=== PATIENT | female | born 1940 | race Caucasian/White ===

== ENCOUNTER 2019-06-08 16:11 | Inpatient (IN) ==
[2019-06-08] MEDS ORDERED: ONDANSETRON INJ 2 MG/ML 2 ML VIAL IV STA (16:25)
[2019-06-08] MEDS ORDERED: SODIUM CHLORIDE 0.9% 1000ML 1,000 ML IV ONE ×2 (16:25→17:45)
[2019-06-08] MEDS ORDERED: FAMOTIDINE 20MG/5ML IV PUSH IV STA (16:25)
[2019-06-08 16:45] LABS: Basophils # (auto) 0.02 K/uL (0-0.2); Basophils % (auto) 0.3 %; Eosinophils # (auto) 0.01 K/uL (0-0.5); Eosinophils % (auto) 0.1 %; Hematocrit (blood only) 47.7 % (37-47); Hemoglobin 17.4 g/dL (12.0-16.0); Immature Granulocytes # (auto) 0.02 K/uL (0.00-0.02); Immature Granulocytes % (auto) 0.3 %; Lymphocytes # (auto) 1.01 K/uL (1.2-3.4); Lymphocytes % (auto) 14.1 %; Mean Corpuscular Hgb Conc 36.5 g/dL (32-36); Mean Corpuscular Volume 88.5 fL (80-100); Mean Platelet Volume 10.6 fL (7.4-10.4); Monocytes % (auto) 2.8 %; Neutrophils # (auto) 5.89 K/uL (1.4-6.5); Neutrophils % (auto) 82.4 %; Platelet Count 216 K/uL (130-400); RDW Coefficient of Variation 13.5 % (11.5-14.5); RDW Standard Deviation 43.6 fL (36.4-46.3); Red Blood Count 5.39 M/uL (4.2-5.4); White Blood Count 7.15 K/uL (4.8-10.8)
[2019-06-08 17:07] LABS: Alanine Aminotransferase 10 U/L (12-78); Albumin Level 4.2 gm/dl (3.4-5.0); Aspartate Aminotransferase 17 U/L (15-37); BUN Creatinine Ratio 16.4 (10-20); Blood Urea Nitrogen 15 mg/dl (7-18); Calcium 9.7 mg/dl (8.5-10.1); Carbon Dioxide 24 mmol/L (21-32); Chloride 107 mmol/L (98-107); Creatinine Clr Calc Pharmacy 50.4 ml/min; Est GFR (African American) 70.4; Est GFR (Non-African American) 60.8; Glucose 147 mg/dl (70-99); Magnesium 1.7 mg/dl (1.8-2.4); Potassium 3.4 mmol/L (3.5-5.1); Sodium 142 mmol/L (136-145)
[2019-06-08 17:18] LABS: Albumin Globulin Ratio 1.3 (0.9-2); Alkaline Phosphatase 142 U/L (45-117); Bilirubin,Total 0.9 mg/dl (0.2-1); Globulin 3.2 gm/dl (2.5-4.0); Total Protein 7.4 gm/dl (6.4-8.2); Troponin I < 0.015 ng/ml (0-0.045)
[2019-06-08] MEDS ORDERED: MAGNESIUM SULFATE / D5W 1 GM/100 ML BAG IV ONE (17:45)
[2019-06-08] MEDS ORDERED: DiphenhydrAMINE HCL 50 MG/ML VIAL IV STA (17:49)
[2019-06-08] MEDS ORDERED: METOCLOPRAMIDE HCL INJ 5 MG/ML 2 ML VIAL IV ONE (17:49)
--- NOTE | 2019-06-08 18:11 | XRay Report ---
XR abdomen 2V w PA chest CLINICAL HISTORY: epigastric pain, n/v COMPARISON STUDY: CT scan dated 05/31/2019 FINDINGS: Direct chest reveals no free intraperitoneal air. There is no focal pulmonary consolidation . Erect and supine views the abdomen reveal no abnormally dilated loops of large or small bowel. Ther e are no calcifications suspicious for renal calculi. There are postsurgical changes present within t he lumbar spine. There is a stable area of sclerosis involving the lateral margin of the left iliac c rest. IMPRESSION: No evidence of bowel obstruction. No evidence of free air. Electronically signed by: Diego Nobles M.D. 06/08/2019 6:09 PM
[2019-06-08] MEDS ORDERED: ACETAMINOPHEN 1,000 MG/100 ML VIAL IV STA (18:47)
--- NOTE | 2019-06-08 20:26 | History & Physical Report ---
Date of Service June 08, 2019 Assessment & Plan (1) Nausea & vomiting: (2) Abdominal pain: (3) Dehydration: Patient with history of GERD presented with complaint of intermittent nausea/vomiting, epigastric aching/"lump sensation" for the past 3 weeks. Today with numerous episodes of vomiting reported. Denies fever, chills, hematemesis, melena, urinary symptoms History ER visit [address] abdomen and pelvis with no acute abdominal findings Today in ER patient afebrile, P: 90, RR: 18, BP 164/115 Down to 169/94, 98% on room air. No leukocytosis, H/H: 17/47, K: 3.4, magnesium: 1.7, glucose: 147, POC lactate: 2.45, total bili: 0.9, AST: 17, ALT: 10, alk phos: 142, normal li pase, negative troponin CXR/abdominal x-ray: No bowel obstruction, or free air DDX: Gastritis, H. pylori, GERD, gastroenteritis -In ER given 2 L NSS, Zofran, Reglan, Benadryl, Pepcid -Continue PPI p.o. twice daily -Antiemetic as needed -H. pylori stool study however may be inaccurate secondary to PPI use -Hold aspirin and monitor -Clear liquids for now -GI consult -Monitor CBC, CMP (4) Hypokalemia: K: 3.4 Probable secondary to vomiting -Replace and monitor (5) Hypomagnesemia: Magnesium: 1.7 -In ER given 1 g magnesium IV -Monitor magnesium level (6) HTN (hypertension): Not on home medicines BP elevated in ER at 164/115, 169/94 May be secondary to vomiting -Monitor BP -May need to add BP medicine (7) Diabetes mellitus, type II: Diet controlled. A1c: 6.4 on 04/26/2019 Random glucose: 147 (8) Parkinson disease: -Continue carbidopa-levodopa (9) Anxiety and depression: -Continue duloxetine, continue alprazolam. (10) Dyslipidemia: -Hold statin at this time secondary to GI upset DVT Prophylaxis -Heparin SQ PT/OT Eval Case management consult for assistance with discharge planning DNR/DNI as per discussion with pt Follows with Dr Mendez for routine care Pt was seen and care coordinated with Dr Hi. See addendum History of Present Illness Chief Complaint: N/V Primary Care Provider: Ori Mendez MD Pt is 79 y/o F with PMH HTN, dyslipidemia, GERD, depression, anxiety, tremor, Parkinson's, DM II, chronic back pain presented to ER with complaint of nausea and vomiting. Patient reports intermittent nausea and vomiting for the past 3 weeks. She reports symptoms seem to occur when she is up moving around. Describes nausea followed by "lump sensation" to epigastric region. Patient describes the lump sensation as an ache and reports no other abdominal pain. Patient reports will have vomiting sometimes several times a day. Reports numerous episodes of vomiting today. Reports symptoms are improved with lying supine. States he has been eating soup and sherbet. Patient is unsure if food aggravates symptoms. Patient reports increased belching. patient reports chronic constipation, last BM 2-3 days ago. Denies any difficulty swallowing or painful swallowing. Denies food bolus sensation. Patient reports chronic intermittent heartburn with lying down at bedtime and reports takes Tums a cou ple times a week for this. Patient was seen by PCP office on 05/20/2019 for nausea and vomiting. Had a negative urine culture at that point time. Patient is on omeprazole 20 mg twice daily. Patient seen in ER 05/31/2019 for similar symptoms and CT abdomen pelvis at that time was without acute intra-abdominal pathology, noted Punctate right nephrolithiasis vs renovascular calcification, no hydroneph rosis and no diverticulitis. She was given IVF and discharged home on Zofran. Patient reports took Zofran but continues to have symptoms. She denies caffeine intake. Patient reports takes Aleve 2 to 3 pills per dose every couple of days for chronic back and neck pain. Patient is on baby aspirin. Patient reports is more forgetful and often has hard time with her medications. She reports she is supposed to be getting pill packs to help her with her meds. Reports recently got life alert however she sometimes forgets to wear. Reports was having frequent falls however now has rolling walker reports no falls for the past 3 weeks. Denies history EGD in past. Denies fever/chills, diaphoresis, hematemesis, melena, hematochezia, dysuria, urinary frequency, urinary retention or hesitancy, hematuria, SCRUGGS, dizziness, syncope, vision changes, neck pain, CP, SOB, orthopnea, palpitations, cough, sore throat, choking, otalgia, rhinorrhea, paresthesias, weakness, extremity weakness, extremity edema, rashes. Denies recent travel, recent antibiotic use, ill contacts. Patient reports moves home alone. Allergies Allergy/AdvReac Type Severity Reaction Status Date / Time codeine Allergy Severe SEVERE Verified 06/08/19 16:43 HEADACHE, NAUSEA & VOMITING morphine Allergy Severe SEVERE Verified 06/08/19 16:43 HEADACHE, NAUSEA, & VOMITING pentazocine [From [facility]] Allergy Severe DECREASED Verified 06/08/19 16:43 MOTOR SKILL, SOB. Home Medications Home Medications Medication Instructions Recorded Confirmed Type alprazolam 0.25 mg PO TID PRN 10/14/18 06/08/19 History aspirin [Aspir-81] 81 mg PO DAILY 10/14/18 06/08/19 History duloxetine 60 mg PO DAILY 10/14/18 06/08/19 History omeprazole 20 mg PO BID 10/14/18 06/08/19 History bupropion HCl 150 mg PO BID 05/31/19 06/08/19 History carbidopa-levodopa 1 tab PO TID 05/31/19 06/08/19 History primidone 50 mg PO BID 05/31/19 06/08/19 History atorvastatin 20 mg PO DAILY 06/08/19 06/08/19 History Past Med/Surg History Medical History Anxiety and depression (Chronic) HTN (hypertension) (Chronic) Diabetes mellitus, type II (Chronic) Dyslipidemia (Chronic) Parkinson disease (Chronic) Tremor (Chronic) Gastroesophageal reflux disease (Chronic) Chronic back pain Surgical History History of cervical spinal surgery (Chronic) History of lumbosacral spine surgery (Chronic) History of tubal ligation (Chronic) History of back surgery Family History Other Hypertension Stroke Thyroid disorder Social History Preferred Language: Qatari Communication Ability: Effective Automotive Consultant Required: No Beliefs That Will Affect Care: None Current Living Situation: Alone Other Information That Helps Us Care for You: No Feels Safe at Home: Yes Safety Concerns: Feels Safe At This Time Smoking Status: Never smoker Do You Dip or Chew Tobacco: No ; Second Hand Exposure: No ; Hx Alcohol Use: Yes Alcohol type: hard liquor Hx Substance Use: No Review of Systems Review of Systems: All systems reviewed & are unremarkable except as noted in HPI & below Physical Exam Physical Exam: General: no acute distress, obese Head: normocephalic, atraumatic Eyes: PERRL, EOM's intact, conjunctiva non-injected, anicteric ENT: normal inspection external ears, nose, mucous membranes dry Neck: supple, trachea midline Lungs: clear, no respiratory distress, no wheezing/rhonchi/rales CV: RRR, no murmur, no pretibial edema Abd: normal BS, soft, protuberant, mild tenderness to palpation epigastric region without rebound or guarding Ext: no cyanosis, no calf tenderness Neuro: Alert, oriented to person, place, month, year, no focal deficits noted, normal affect Skin: warm, dry Results & Data Vital Signs (Past 12 Hours) Vital Signs Temp Pulse Pulse Resp BP BP Pulse Ox 06/08/19 19:38 85 22 176/98 H 96 06/08/19 18:32 90 25 H 169/94 H 99 06/08/19 17:42 87 24 168/99 H 97 06/08/19 16:11 36.8 C 95 H 18 164/115 H 98 Laboratory Results Short CBC 06/08/19 Range/Units 16:31 WBC 7.15 (4.8-10.8) K/uL Hgb 17.4 H (12.0-16.0) g/dL Hct 47.7 H (37-47) % Plt Count 216 (130-400) K/uL BMP 06/08/19 16:31 Sodium 142 Potassium 3.4 L Chloride 107 Carbon Dioxide 24 BUN 15 Creatinine 0.89 Glucose 147 H Calcium 9.7 Cardiac Enzymes 06/08/19 Range/Units 16:31 Troponin I < 0.015 (0-0.045) ng/ml Liver Function 06/08/19 Range/Units 16:31 Total Bilirubin 0.9 (0.2-1) mg/dl AST 17 (15-37) U/L ALT 10 L (12-78) U/L Alkaline Phosphatase 142 H (45-117) U/L Albumin 4.2 (3.4-5.0) gm/dl Diagnostic Findings CXR/ABD XRAY: IMPRESSION: No evidence of bowel obstruction. No evidence of free air. ECG Rate (beats per minute): 82 Rhythm: sinus rhythm Findings: + Q waves (Inferior) Change: no significant change Code Status & VTE Plan VTE Prophylaxis Plan VTE Prophylaxis will be ordered: Yes Supervising Physician Co-Signing Physician Notes Care coordinated with Alicia Lopez PA-C. Agree with above note. Patient seen and examined. Please refer to her notes for full details. Vital signs reviewed. Physical exam: General exam: Alert and oriented. Not in acute distress. CVS: S1 and S2 heard, regular rate and rhythm, no murmurs. RS: Clear to auscultation, no wheezing or crackles. ABD: Soft, bowel sounds present, mild epigastric tenderness present , no distention. CLOSET ORGANIZER: Nonfocal. EXT: No edema, no erythema. Labs: Reviewed. Assessment and plan: Nausea/Vomiting epigastric discomfort going on for 3 weeks imaging studies unremarkable ppi npo, fluids gi consult Parkinsons home meds pt/ot Other diagnosis and plan of care as per Alicia Sears PA-C. Mario meade MD. (1) Nausea & vomiting Vomiting Intractability: non-intractable Vomiting type: unspecified Qualified Code(s): R11.2 - Nausea with vomiting, unspecified (2) Abdominal pain Abdominal location: unspecified location Qualified Code(s): R10.9 - Unspecified abdominal pain
[2019-06-08] MEDS ORDERED: ACETAMINOPHEN 325 MG TAB PO PRN (21:27)
[2019-06-08] MEDS ORDERED: POTASSIUM CHLORIDE 40 MEQ in SODIUM CHLORIDE 0.9% 1000ML 1,000 ML IV SCH (21:27)
[2019-06-08] MEDS ORDERED: ONDANSETRON INJ 2 MG/ML 2 ML VIAL IV PRN (21:27)
[2019-06-08] MEDS: PANTOprazole 40 MG TAB PO SCH (23:04)
[2019-06-08] MEDS: PRIMIDONE 50 MG TAB PO SCH (23:04)
[2019-06-08] MEDS: CARBIDOPA/LEVODOPA 25/100MG TAB PO SCH (23:05)
[2019-06-08] MEDS: BuPROPion SR 150 MG TABCR PO SCH (23:05)
[2019-06-08] MEDS: ALPRAZolam 0.25 MG TABLET PO PRN (23:07)
--- NOTE | 2019-06-08 23:55 | Emergency Department Note ---
Entered by Kadi Crawford acting as a scribe for Mary Mejia DO History of Present Illness General Chief complaint: Vomiting Time Seen by Provider: 06/08/19 16:12 Source: patient Mode of arrival: EMS History of Present Illness Provider complaint: vomiting Onset (ago): hour(s) 8 Location: abdomen Pain Consistency: + other (episode) Associated symptoms: + denies other symptoms (abnormal bowel movements), + nausea/vomiting and + other (abdominal pain, light-headed); no fever/chills and no syncope The patient is an 79 year old female with a PMHX of a PE, Parkinson's disease, and stomach ulcer, who presents to the ED via EMS with complaints of an episode vomiting that began about 8 hours ago. The patient states that she has been nausea and vomiting. She states that she has pain in the center of her abdomen that feels like indigestion. The patient states that she has been light-headed with the vomiting but has not lost consciousness. The patient states that she had an episode similar to this 1 week ago and was seen in the ED. The patient states that she was discharged home because her test results came back normal. She states that she followed up with her PCP who referred her back to the ED today because of more vomiting. She believes she vomited approximately 20 times last night into today. She states that she has been experiencing intermittent abdominal pain and nausea every day for 8 months now. The patient states that only recently she has been vomiting when she becomes nauseous. The patient states that she was supposed to see her family doctor in 3 weeks. The patient states that she had a PE 20 years ago and does not take blood thinners today. The patient denies fevers and chills. The patient states that she takes stool softeners to move her bowels. The patient states that she has not had a bowel movement in a few days, but that is normal. The patient states that her bowel movements are not discolored. The patient states that she was told she had a stomach ulcer years ago. The patient states that she lives alone. The patient states that she has no family she can call to inform that she is in the ED. The patient states that she has not spoken to them in almost 20 years. Home Medications Home Medications Medication Instructions Recorded Confirmed Type alprazolam 0.25 mg PO TID PRN 10/14/18 06/08/19 History aspirin [Aspir-81] 81 mg PO DAILY 10/14/18 06/08/19 History duloxetine 60 mg PO DAILY 10/14/18 06/08/19 History omeprazole 20 mg PO BID 10/14/18 06/08/19 History bupropion HCl 150 mg PO BID 05/31/19 06/08/19 History carbidopa-levodopa 1 tab PO TID 05/31/19 06/08/19 History primidone 50 mg PO BID 05/31/19 06/08/19 History atorvastatin 20 mg PO DAILY 06/08/19 06/08/19 History Allergies Allergy/AdvReac Type Severity Reaction Status Date / Time codeine Allergy Severe SEVERE Verified 06/08/19 16:43 HEADACHE, NAUSEA & VOMITING morphine Allergy Severe SEVERE Verified 06/08/19 16:43 HEADACHE, NAUSEA, & VOMITING pentazocine [From Rajani] Allergy Severe DECREASED Verified 06/08/19 16:43 MOTOR SKILL, SOB. Past Med/Surg History Medical History Anxiety and depression (Chronic) HTN (hypertension) (Chronic) Diabetes mellitus, type II (Chronic) Dyslipidemia (Chronic) Parkinson disease (Chronic) Tremor (Chronic) Gastroesophageal reflux disease (Chronic) Chronic back pain Surgical History History of cervical spinal surgery (Chronic) History of lumbosacral spine surgery (Chronic) History of tubal ligation (Chronic) History of back surgery Family History Other Hypertension Stroke Thyroid disorder Social History Preferred Language: Macedonian Communication Ability: Effective Imagery Intelligence Required: No Beliefs That Will Affect Care: None Current Living Situation: Alone Other Information That Helps Us Care for You: No Feels Safe at Home: Yes Safety Concerns: Feels Safe At This Time Smoking Status: Never smoker Do You Dip or Chew Tobacco: No ; Second Hand Exposure: No ; Hx Alcohol Use: Yes Alcohol type: hard liquor Hx Substance Use: No Review of Systems See HPI for pertinent positives & negatives. and A total of 10 systems reviewed and were otherwise negative Physical Exam Vital Signs Vital Signs - 24 hr 06/08/19 16:11 06/08/19 17:42 06/08/19 18:32 Temperature 36.8 C Temperature Source Oral Sepsis Recent Fever Within 48 Hours No Sepsis New/Unexplained Change in Mental Status No Sepsis Action Taken by Nursing No Action Required Pulse Rate 95 H Pulse Rate [Left Finger] 87 90 Respiratory Rate 18 24 25 H Respiratory Effort / Characteristics Non-Labored Non-Labored Respiratory Depth Normal Normal Respiratory Pattern Regular Regular Blood Pressure 164/115 H Blood Pressure [Left Arm] 168/99 H 169/94 H Blood Pressure Mean 131 Blood Pressure Mean [Left Arm] 122 119 Pulse Oximetry 98 97 99 Oxygen Delivery Method Room Air Room Air Room Air 06/08/19 19:38 Temperature Temperature Source Sepsis Recent Fever Within 48 Hours Sepsis New/Unexplained Change in Mental Status Sepsis Action Taken by Nursing Pulse Rate Pulse Rate [Left Finger] 85 Respiratory Rate 22 Respiratory Effort / Characteristics Respiratory Depth Respiratory Pattern Blood Pressure Blood Pressure [Left Arm] 176/98 H Blood Pressure Mean Blood Pressure Mean [Left Arm] 124 Pulse Oximetry 96 Oxygen Delivery Method Room Air GENERAL: alert, ill appearing, well nourished, no distress, non-toxic EYE EXAM: normal conjunctiva, PERRL and EOM's grossly intact OROPHARYNX: no exudate, no erythema, lips, buccal mucosa, and tongue normal and mucous membranes are dry NECK: supple, no nuchal rigidity, no adenopathy, non-tender LUNGS: Clear to auscultation. Normal chest wall mechanics, no w/r/r HEART: no murmurs, S1 normal and S2 normal ABDOMEN: abdomen soft, mild epigastric tenderness to palpation, normo-active bow el sounds, no masses, no rebound or guarding. BACK: Back is symmetrical on inspection and there is no deformity, no midline tenderness, no CVA tenderness. SKIN: no rashes and no bruising UPPER EXTREMITIES: upper extremities are grossly normal. LOWER EXTREMITIES: No pitting edema. FROM, nml pulses b/l. NEURO EXAM: Normal sensorium, cranial nerves II-XII grossly intact, normal speech, no gross weakness of arms, no gross weakness of legs. Tremulous, however tremor is consistent with no Parkinson's. Course 161: Past medical records reviewed. The patient was evaluated in room B11B. A complete history and physical exam was performed. 1826: I reevaluated the patient at this time and she stated that she is still nauseated but no longer has abdominal pain. I discussed the test results and treatment plan with the patient. She verbally agreed and understood. 1846: I discussed the patients case with Alicia Lopez PA-C. She i nformed me that Dr. Hi will evaluate the patient for further management. Consultations Consultation #1: I discussed the patients case with Alicia Lopez PA-C. She informed me that Dr. Hi will evaluate the patient for further management. Time: 18:47 Administered Medications Alprazolam (Xanax) 0.25 mg PO TID PRN PRN Reason: Anxiety Stop: 07/08/19 21:26 Last Admin: 06/08/19 23:07 Dose: 0.25 mg Documented by: [id number] Bupropion HCl (Wellbutrin-Sr) 150 mg PO BID LINDSAY Stop: 07/08/19 21:26 Last Admin: 06/08/19 23:05 Dose: 150 mg Documented by: [id number] Carbidopa/Levodopa (Sinemet 25/100 Mg) 1 tab PO TID LINDSAY Stop: 07/08/19 21:26 Last Admin: 06/08/19 23:05 Dose: 1 tab Documented by: [id number] Potassium Chloride 40 meq/ (Sodium Chloride) 1,020 mls @ 80 mls/hr IV .[id number] LINDSAY Stop: 06/09/19 10:11 Last Admin: 06/08/19 23:07 Dose: 80 mls/hr Documented by: [id number] Pantoprazole Sodium (Protonix) 40 mg PO BID LINDSAY Stop: 07/08/19 21:26 Last Admin: 06/08/19 23:04 Dose: 40 mg Documented by: [id number] Primidone (Primidone) 50 mg PO BID LINDSAY Stop: 07/08/19 21:26 Last Admin: 06/08/19 23:04 Dose: 50 mg Documented by: [id number] Discontinued Medications Diphenhydramine HCl (Benadryl) 12.5 mg IV NOW STA Stop: 06/08/19 17:50 Last Admin: 06/08/19 18:20 Dose: 12.5 mg Documented by: [id number] Famotidine (Pepcid 20mg Iv Push) 20 mg IV ONE STA Stop: 06/08/19 16:26 Last Admin: 06/08/19 16:42 Dose: 20 mg Documented by: [id number] Sodium Chloride (Nss 1000ml) 1,000 mls @ 999 mls/hr IV .Q1H1M ONE Stop: 06/08/19 17:25 Last Infusion: 06/08/19 17:48 Dose: 0 mls/hr Documented by: [id number] Admin: 06/08/19 16:42 Dose: 999 mls/hr Documented by: [id number] Sodium Chloride (Nss 1000ml) 1,000 mls @ 999 mls/hr IV .Q1H1M ONE Stop: 06/08/19 18:45 Last Infusion: 06/08/19 19:23 Dose: 0 mls/hr Documented by: [id number] Admin: 06/08/19 18:22 Dose: 999 mls/hr Documented by: [id number] Magnesium Sulfate/Dextrose (Magnesium Sulfate / D5w) 1 gm in 100 mls @ 100 mls/hr IV ONE ONE Stop: 06/08/19 18:44 Last Infusion: 06/08/19 19:23 Dose: 0 mls/hr Documented by: [id number] Admin: 06/08/19 18:20 Dose: 100 mls/hr Documented by: [id number] Acetaminophen (Ofirmev) 1,000 mg in 100 mls @ 400 mls/hr IV NOW STA Stop: 06/08/19 19:01 Last Infusion: 06/08/19 20:11 Dose: 0 mls/hr Documented by: [id number] Admin: 06/08/19 19:39 Dose: 400 mls/hr Documented by: [id number] Metoclopramide HCl (Reglan) 5 mg IV ONE ONE Stop: 06/08/19 17:50 Last Admin: 06/08/19 18:21 Dose: 5 mg Documented by: [id number] Ondansetron HCl (Zofran) 4 mg IV NOW STA Stop: 06/08/19 16:26 Last Admin: 06/08/19 16:42 Dose: 4 mg Documented by: [id number] Medical Decision Making Differential Diagnosis Differential diagnosis: Etiologies such as gastroenteritis, food borne illness, infections, appendicitis, diverticulitis, inflammatory bowel disease, obstruction, GI bleed, biliary pathology, as well as others were entertained. Medical Records Attestation: I reviewed the patient's medical records. Home Medications Current Medication List: was personally reviewed by me Laboratory Data Attestation: I reviewed the patient's lab results. Result diagrams: 06/08/19 16:31 06/08/19 16:31 Lab Results 06/08/19 06/08/19 06/08/19 Range/Units 16:31 16:31 16:35 WBC 7.15 (4.8-10.8) K/uL RBC 5.39 (4.2-5.4) M/uL Hgb 17.4 H (12.0-16.0) g/dL Hct 47.7 H (37-47) % MCV 88.5 (80-100) fL MCH 32.3 (25-34) pg MCHC 36.5 H (32-36) g/dL RDW Std Deviation 43.6 (36.4-46.3) fL RDW Coeff of Yareli 13.5 (11.5-14.5) % Plt Count 216 (130-400) K/uL MPV 10.6 H (7.4-10.4) fL Immature Gran % (Auto) 0.3 % Neut % (Auto) 82.4 % Lymph % (Auto) 14.1 % [place] % (Auto) 2.8 % Eos % (Auto) 0.1 % Baso % (Auto) 0.3 % Immature Gran # (Auto) 0.02 (0.00-0.02) K/uL Neut # (Auto) 5.89 (1.4-6.5) K/uL Lymph # (Auto) 1.01 L (1.2-3.4) K/uL [place] # (Auto) 0.20 (0.11-0.59) K/uL Eos # (Auto) 0.01 (0-0.5) K/uL Baso # (Auto) 0.02 (0-0.2) K/uL Sodium 142 (136-145) mmol/L Potassium 3.4 L (3.5-5.1) mmol/L Chloride 107 (98-107) mmol/L Carbon Dioxide 24 (21-32) mmol/L Anion Gap 11.0 (3-11) BUN 15 (7-18) mg/dl Creatinine 0.89 (0.6-1.2) mg/dl Est Cr Clr Drug Dosing 50.4 ml/min Est GFR ( Amer) 70.4 Est GFR (Non-Af Amer) 60.8 BUN/Creatinine Ratio 16.4 (10-20) Glucose 147 H (70-99) mg/dl POC Lactic Acid Joseph 2.45 H (0.90-1.70) mmol/L Calcium 9.7 (8.5-10.1) mg/dl Magnesium 1.7 L (1.8-2.4) mg/dl Total Bilirubin 0.9 (0.2-1) mg/dl AST 17 (15-37) U/L ALT 10 L (12-78) U/L Alkaline Phosphatase 142 H (45-117) U/L Troponin I < 0.015 (0-0.045) ng/ml Total Protein 7.4 (6.4-8.2) gm/dl Albumin 4.2 (3.4-5.0) gm/dl Globulin 3.2 (2.5-4.0) gm/dl Albumin/Globulin Ratio 1.3 (0.9-2) Lipase 76 (73-393) U/L TSH 1.010 (0.300-4.500) uIu/ml Imaging Data Radiologist's Impression: Radiology results as stated below per my review and the radiologist's interpretation: XR abdomen 2V w PA chest CLINICAL HISTORY: epigastric pain, n/v COMPARISON STUDY: CT scan dated 05/31/2019 FINDINGS: Direct chest reveals no free intraperitoneal air. There is no focal pulmonary consolidation. Erect and supine views the abdomen reveal no abnormally dilated loops of large or small bowel. There are no calcifications suspicious for renal calculi. There are postsurgical changes present within the lumbar spine. There is a stable area of sclerosis involving the lateral margin of the l eft iliac crest. IMPRESSION: No evidence of bowel obstruction. No evidence of free air. Electronically signed by: Diego Nobles M.D. 06/08/2019 6:09 PM ECG Data Attestation: I personally reviewed and interpreted this ECG as follows: Indication: vomiting Rate (beats per minute): 82 Rhythm: sinus rhythm Findings: + other (normal intervals, AVF), + Q waves (in Lead 3) and + left axis deviation; no PAC, no PVC, no ST elevation and no ectopy Blood Pressure Blood Pressure Findings: Elevated blood pressure Blood Pressure Disposition: further management by hospitalist VITALY Polo Patient here appearing clinically dehydrated with recurrent nausea, vomiting, and abdominal pain similar to her presentation last week. I did review the evaluation last week which had reassuring labs and reassuring CAT scan of the abdomen and pelvis. Patient here was hydrated and given 2 different antiemetics in addition to the medication she was given by EMS. Patient had been using her Zofran at home, however still had persistent symptoms. Patient's lactic acid mildly elevated although I feel this is more likely related to her dehydration. Patient's H&H appears hemoconcentrated. Mildly elevated glucose level, no evidence of DKA or HHNK. No evidence of acute kidney injury. I do not suspect bacteremia/sepsis, perforation, GI bleed, mesenteric ischemia, bowel obstruction. I do not suspect occult infection or other vascular abnormality. No evidence of cardiac etiology. Case discussed with hospitalist for additional evaluation management. I do feel patient may benefit from GI evaluation. Patient states she has never had EGD/colonoscopy. I also suspect there is a component of anxiety that is contributing to her symptoms as patient has no additional family support. Patient was hemodynamically stable throughout. Impression & Plan Intractable nausea and vomiting, Dehydration, Abdominal pain Discharge Plan Visit Data *Final* Discharge Date/Time: 06/08/19 21:12 Chief Complaint: Vomiting ED Provider: Mary Mejia Discharge Problem: Intractable nausea and vomiting, Dehydration, Abdominal pain Patient Disposition: Admitted As Inpatient Condition: Good Discharge Instructions Interventions: ED Discharge Assessment Last Done: 06/08/19 21:12 Discharge Problem: Intractable nausea and vomiting Qualifiers: Vomiting type: unspecified Qualified Code(s): R11.2 - Nausea with vomiting, unspecified Abdominal pain Qualifiers: Abdominal location: unspecified location Qualified Code(s): R10.9 - Unspecified abdominal pain The scribe's documentation has been prepared under my direction and personally reviewed by me in its entirety. I confirm that the note above accurately reflects all work, treatment, procedures, and medical decision making performed by me.
[2019-06-09 07:25] LABS: INR 1.1 (0.9-1.1); Prothrombin Time 11.1 Seconds (9.0-12.0)
[2019-06-09 07:45] LABS: Hemoglobin 14.9 g/dL (12.0-16.0); Mean Corpuscular Hgb Conc 35.5 g/dL (32-36); Mean Corpuscular Volume 90.5 fL (80-100); Mean Platelet Volume 10.6 fL (7.4-10.4); Platelet Count 181 K/uL (130-400); RDW Coefficient of Variation 13.8 % (11.5-14.5); RDW Standard Deviation 45.1 fL (36.4-46.3); Red Blood Count 4.64 M/uL (4.2-5.4); White Blood Count 5.41 K/uL (4.8-10.8)
[2019-06-09] MEDS: ALPRAZolam 0.25 MG TABLET PO PRN ×2 (07:52→20:30)
[2019-06-09] MEDS: PANTOprazole 40 MG TAB PO SCH ×2 (07:53→20:31)
[2019-06-09] MEDS: BuPROPion SR 150 MG TABCR PO SCH ×2 (07:53→20:31)
[2019-06-09] MEDS: DULOXETINE HCL 60 MG CAP PO SCH (07:53)
[2019-06-09] MEDS: PRIMIDONE 50 MG TAB PO SCH ×2 (07:53→20:31)
[2019-06-09] MEDS: CARBIDOPA/LEVODOPA 25/100MG TAB PO SCH ×3 (07:53→20:31)
[2019-06-09 08:04] LABS: Albumin Globulin Ratio 1.3 (0.9-2); Albumin Level 3.4 gm/dl (3.4-5.0); BUN Creatinine Ratio 13.7 (10-20); Bilirubin,Total 0.6 mg/dl (0.2-1); Calcium 8.6 mg/dl (8.5-10.1); Creatinine Clr Calc Pharmacy 66.8 ml/min; Est GFR (African American) 95.5; Est GFR (Non-African American) 82.4; Globulin 2.7 gm/dl (2.5-4.0); Potassium 3.5 mmol/L (3.5-5.1); Total Protein 6.1 gm/dl (6.4-8.2)
--- NOTE | 2019-06-09 08:36 | Gastrointestinal Consultation ---
Date of Consultation June 09, 2019 Assessment & Plan (1) Nausea & vomiting: Differential diagnoses for the cause of nausea/vomiting include GI dysmotility from DM and Parkinson's, katya, esophagitis, gastritis or med related (duloxetine up to 23%, carbidopa-levodopa up to 20%, primidone). Plan: EGD today by Dr. Pop. Though pt is hesitant to have procedures, she states that she, "can't go on like this." Risks/benefits discussed. Please keep pt NPO. Further recommendations to follow endoscopy. Present on Admission?: Yes Supervising Physician Co-Signing Physician Notes I have performed a history and physical examination of this patient and reviewed the electronic medical record. Specifically, on physical examination there is no abdominal tenderness. I have discussed the case with CALEB Villalobos. The above note reflects my findings, conclusions, and recommendations. Alverto Pop MD History of Present Illness Reason for Consultation: Nausea, vomiting Requesting Physician: Dr. Shook Attending Physician: Jack Shook MD History of Present Illness Ms. Holly Ward is an 79 yr old female pt of Dr. Mendez with a hx of anxiety, depression, DM-2, HTN, and Parkinson's Disease who presented to the ED yesterday for nausea, vomiting and epigastric abdominal pain. She reports onset of nausea being last June. In the past 3 weeks, it has become much more frequent. Nausea begins every morning after her first food or water intake. In the past weeks, she has had vomiting, soon after eating kathrin akfast, most, but not all days. Then, the nausea/vomiting sometimes resolves, but more often is followed by dry heaves throughout the day. Yesterday the nausea/vomiting and dry heaves were so frequent that she was unable to keep down any food or liquids. She also reports epigastric pressure, present most of the time, worse just before vomiting and but says that it is not real painful - that the vomiting is much more bothersome for her. On arrival, Hb 17, Hct 48, BUN 9, LFTs and lipase normal. She is maintained on aspirin and denies any other NSAID use. An abd x-ray was w/o obstruction and CT done during a prior visit on 05/31 was without and abnormalities but mild constipation was present. She has never previously undergone upper endoscopy. She recalls being told that she had a stomach ulcer in her teens or 20's. Allergies Allergy/AdvReac Type Severity Reaction Status Date / Time codeine Allergy Severe SEVERE Verified 06/08/19 16:43 HEADACHE, NAUSEA & VOMITING morphine Allergy Severe SEVERE Verified 06/08/19 16:43 HEADACHE, NAUSEA, & VOMITING pentazocine [From Talwin] Allergy Severe DECREASED Verified 06/08/19 16:43 MOTOR SKILL, SOB. Home Medications Home Medications Medication Instructions Recorded Confirmed Type alprazolam 0.25 mg PO TID PRN 10/14/18 06/08/19 History aspirin [Aspir-81] 81 mg PO DAILY 10/14/18 06/08/19 History duloxetine 60 mg PO DAILY 10/14/18 06/08/19 History omeprazole 20 mg PO BID 10/14/18 06/08/19 History bupropion HCl 150 mg PO BID 05/31/19 06/08/19 History carbidopa-levodopa 1 tab PO TID 05/31/19 06/08/19 History primidone 50 mg PO BID 05/31/19 06/08/19 History atorvastatin 20 mg PO DAILY 06/08/19 06/08/19 History Patient History Medical History Anxiety and depression (Chronic) HTN (hypertension) (Chronic) Diabetes mellitus, type II (Chronic) Dyslipidemia (Chronic) Parkinson disease (Chronic) Tremor (Chronic) Gastroesophageal reflux disease (Chronic) Chronic back pain Surgical History History of cervical spinal surgery (Chronic) History of lumbosacral spine surgery (Chronic) History of tubal ligation (Chronic) History of back surgery Family History Other Hypertension Stroke Thyroid disorder Social History Preferred Language: Tanzanian Communication Ability: Effective Timing Inspector Required: No Beliefs That Will Affect Care: None marital status: Current Living Situation: Alone Other Information That Helps Us Care for You: No Feels Safe at Home: Yes Safety Concerns: Feels Safe At This Time Smoking Status: Never smoker Do You Dip or Chew Tobacco: No ; Second Hand Exposure: No ; Hx Alcohol Use: Yes Alcohol type: hard liquor Hx Substance Use: No Review of Systems Review of Systems: ROS: Gen: Denies weakness, fevers, weight loss Eyes: No eye redness, or pain, no recent vision changes Resp: No SOB, no cough Cardio: No palpitations/irregular beats, no chest pain GI: + epigastric pressure, nausea and vomiting; denies melena, hematochezia; has chronic constipation, most recent BM about 5 days ago. : Denies pain on urination Skin: No jaundice, itching or new rashes Physical Exam Constitutional: WD/WN, vitals as above Eyes: PERRL, conjunctivae normal, anicteric sclerae ENMT: external ear and nose normal, oropharynx normal Neck: trachea midline, no thyromegaly Respiratory: normal respiratory effort, lungs clear to auscultation Cardiovascular: RRR, no murmur, no edema Gastrointestinal (Abdomen): normal bowel sounds, soft, nontender, no hepatosplenomegaly Skin: no rashes, warm and dry Neurologic: PERRL, + facial tremor and tremor of hands Psychiatric: A+Ox3, euthymic affect Openly talks about having depression and that she because she has to live in a small 3 room appt and that her "family has cast (her) aside," she does not want a lot of procedures. Lymphatic: no cervical or axillary lymphadenopathy Results & Data Vital Signs (Past 12 Hours) Vital Signs Temp Pulse Pulse Resp BP Pulse Ox 06/09/19 07:40 36.6 C 80 18 160/84 H 93 06/09/19 02:55 97 H 155/81 H 06/08/19 22:55 36.9 C 74 16 160/87 H 94 06/08/19 22:28 36.6 C 90 20 161/77 H 96 06/08/19 21:11 87 20 157/85 H 93 Laboratory Results WBC 5.4, Hb 14.9, Hct 42, Platelets 181, Na 146, K 3.5, BUN 9, Cr 0.67. Diagnostic Findings CT abd/pelvis with IV contrast on 05/31: 1. No acute intra-abdominal pathology. 2. Punctate right nephrolithiasis versus renovascular calcification. No hydronephrosis. 3. Limited diverticulosis coli. No evidence of diverticulitis. (1) Nausea & vomiting Vomiting Intractability: non-intractable Vomiting type: unspecified Qualified Code(s): R11.2 - Nausea with vomiting, unspecified
[2019-06-09] MEDS: HEPARIN SOD 5,000 UNIT/0.5 ML VIAL SQ SCH ×3 (09:37→20:32)
[2019-06-09] MEDS ORDERED: GLYCOPYRROLATE 0.2 MG/ML VIAL ONE (11:20)
[2019-06-09] MEDS ORDERED: LIDOCAINE HCL 2% 2 ML VIAL/AMP(20MG/ML) INFIL ONE (11:20)
[2019-06-09] MEDS ORDERED: ONDANSETRON INJ 2 MG/ML 2 ML VIAL ONE (11:20)
[2019-06-09] MEDS ORDERED: PROPOFOL IV EMULSION 10 MG/ML 20 ML VIAL IV ONE (11:20)
--- NOTE | 2019-06-09 11:45 | Anesthesiology Consultation ---
Date of Service June 09, 2019 Assessment & Plan Chart Review Chart Review: Acceptable Risk for Surgery Consults Requested none History Surgery Operation Date: 06/09/19 08:30 Proposed Procedures p Esophagogastroduodenoscopy Dr Ward - Alverto Pop MD Height/Weight Height: 5 ft 2 in Weight: 85.6 kg Allergies Allergy/AdvReac Type Severity Reaction Status Date / Time codeine Allergy Severe SEVERE Verified 06/08/19 16:43 HEADACHE, NAUSEA & VOMITING morphine Allergy Severe SEVERE Verified 06/08/19 16:43 HEADACHE, NAUSEA, & VOMITING pentazocine [From [facility]] Allergy Severe DECREASED Verified 06/08/19 16:43 MOTOR SKILL, SOB. Medications Home Medications Medication Instructions Recorded Confirmed Last Taken alprazolam 0.25 mg PO TID PRN 10/14/18 06/08/19 Unknown aspirin [Aspir-81] 81 mg PO DAILY 10/14/18 06/08/19 10/14/18 duloxetine 60 mg PO DAILY 10/14/18 06/08/19 10/14/18 omeprazole 20 mg PO BID 10/14/18 06/08/19 10/13/18 bupropion HCl 150 mg PO BID 05/31/19 06/08/19 Unknown carbidopa-levodopa 1 tab PO TID 05/31/19 06/08/19 Unknown primidone 50 mg PO BID 05/31/19 06/08/19 Unknown atorvastatin 20 mg PO DAILY 06/08/19 06/08/19 Unknown Active Medications Generic Name Dose Route Start Last Admin Trade Name Freq PRN Reason Stop Dose Admin Alprazolam 0.25 mg 06/08/19 21:27 06/09/19 07:52 Xanax PO 07/08/19 21:26 0.25 mg TID PRN Administration Anxiety Bupropion HCl 150 mg 06/08/19 21:27 06/09/19 07:53 Wellbutrin-Sr PO 07/08/19 21:26 150 mg BID LINDSAY Administration Carbidopa/Levodopa 1 tab 06/08/19 21:27 06/09/19 07:53 Sinemet 25/100 Mg PO 07/08/19 21:26 1 tab TID LINDSAY Administration Duloxetine HCl 60 mg 06/09/19 09:00 06/09/19 07:53 Cymbalta PO 07/09/19 08:59 60 mg DAILY LINDSAY Administration Heparin Sodium (Porcine) 5,000 units 06/09/19 08:00 06/09/19 09:37 Heparin Sodium (Porcine) SQ 07/09/19 07:59 5,000 units Q8 LINDSAY Administration Ondansetron HCl 4 mg 06/08/19 21:27 06/09/19 04:43 Zofran IV 07/08/19 21:26 4 mg Q6H PRN Administration Nausea Pantoprazole Sodium 40 mg 06/08/19 21:27 06/09/19 07:53 Protonix PO 07/08/19 21:26 40 mg BID LINDSAY Administration Primidone 50 mg 06/08/19 21:27 06/09/19 07:53 Primidone PO 07/08/19 21:26 50 mg BID LINDSAY Administration Past Medical History Medical History Anxiety and depression (Chronic) HTN (hypertension) (Chronic) Diabetes mellitus, type II (Chronic) Dyslipidemia (Chronic) Parkinson disease (Chronic) Tremor (Chronic) Gastroesophageal reflux disease (Chronic) Chronic back pain Past Family History Family History Other Hypertension Stroke Thyroid disorder Past Surgical History Surgical History History of cervical spinal surgery (Chronic) History of lumbosacral spine surgery (Chronic) History of tubal ligation (Chronic) History of back surgery Social History Smoking Status: Never smoker Do You Dip or Chew Tobacco: No Hx Alcohol Use: Yes Alcohol type: hard liquor alcohol intake frequency: holidays/special occasions only Hx Substance Use: No substance use type: does not use Physical Exam Vital Signs Last Vital Signs Temp 36.6 C 06/09/19 07:40 Pulse 80 06/09/19 07:40 Resp 18 06/09/19 07:40 BP 160/84 H 06/09/19 07:40 Pulse Ox 93 06/09/19 07:40 Testing Laboratory Results 06/09/19 06:34 06/09/19 06:34 PT 11.1 Seconds (9.0-12.0) 06/09/19 06:34 INR 1.1 (0.9-1.1) 06/09/19 06:34
--- NOTE | 2019-06-09 12:33 | GI REPORT ---
Patient Name: Holly Ward Procedure Date: 06/09/2019 12:11 PM Date of : 1940 Admit Type: Inpatient Age: 79 Gender: Female Attending MD: Alverto Pop MD Procedure: Upper GI endoscopy Providers: Alverto Pop MD Referring MD: Jack Shook Indications: Nausea with vomiting Medicines: Monitored Anesthesia Care Complications: No immediate complications. Estimated blood loss: None. Estimated Blood Loss: Estimated blood loss: none. Procedure: Pre-Anesthesia Assessment: - Prior to the procedure, a History and Physical was performed, and patient medications, allergies and sensitivities were reviewed. The patient's tolerance of previous anesthesia was reviewed. - ASA Grade Assessment: III - A patient with severe systemic disease. After obtaining informed consent, the endoscope was passed under direct vision. Throughout the procedure, the patient's blood pressure, pulse, and oxygen saturations were monitored continuously. The Endoscope was introduced through the mouth, and advanced to the third part of duodenum. The upper GI endoscopy was accomplished with ease. The patient tolerated the procedure well. Findings: The upper third of the esophagus, middle third of the esophagus and lower third of the esophagus were normal. The Z-line was regular and was found 35 cm from the incisors. Normal mucosa was found in the entire examined stomach. Biopsies were taken with a cold forceps for Helicobacter pylori testing. Multiple small semi-sessile polyps with no stigmata of recent bleeding were found in the gastric body. The examined duodenum was normal. Verification of patient identification for the specimen was done by the physician and nurse using the patient's name, date and medical record number. Impression: - Normal upper third of esophagus, middle third of esophagus and lower third of esophagus. - Z-line regular, 35 cm from the incisors. - Normal mucosa was found in the entire stomach. Biopsied. - Multiple gastric polyps consistent with fundic gland polyps. - Normal examined duodenum. Recommendation: - Gastroparesis diet. - Return patient to [facility] for ongoing care. Alverto Pop M.D. Alverto Pop MD 06/09/2019 12:33:06 PM This report has been signed electronically. Note Initiated On: 06/09/2019 12:11 PM Number of Addenda: 0 I attest to the content of the Intraoperative Record and orders documented therein, exceptions below {[id number]}
--- NOTE | 2019-06-09 12:45 | Anesthesiology Progress Note ---
Date of Service June 09, 2019 Anesthesia Post Procedure Vital Signs Vital Signs: Temp Pulse Pulse Pulse Resp BP BP 06/09/19 12:37 80 16 105/52 L 06/09/19 11:52 36.8 C 90 20 189/93 H 06/09/19 07:40 36.6 C 80 18 160/84 H 06/09/19 02:55 97 H 155/81 H 06/08/19 22:55 36.9 C 74 16 160/87 H 06/08/19 22:28 36.6 C 90 20 161/77 H 06/08/19 21:11 87 20 157/85 H 06/08/19 19:38 85 22 176/98 H 06/08/19 18:32 90 25 H 169/94 H 06/08/19 17:42 87 24 168/99 H 06/08/19 16:11 36.8 C 95 H 18 164/115 H Pulse Ox 06/09/19 12:37 92 06/09/19 11:52 96 06/09/19 07:40 93 06/09/19 02:55 06/08/19 22:55 94 06/08/19 22:28 96 06/08/19 21:11 93 06/08/19 19:38 96 06/08/19 18:32 99 06/08/19 17:42 97 06/08/19 16:11 98 Pain Intensity Head: Pain Intensity: 2 Transfer of Care Handoff Completed per policy Notes Mental Status: alert / awake / arousable and participated in evaluation Patient Amnestic to Procedure: Yes Nausea / Vomiting: adequately controlled Pain: adequately controlled Airway Patency, RR, SpO2: stable & adequate BP & HR: stable & adequate Hydration State: stable & adequate Anesthetic Complications: no major complications apparent
--- NOTE | 2019-06-09 17:15 | Hospitalist Progress Note ---
Date of Service June 09, 2019 Assessment & Plan (1) Intractable nausea and vomiting: Intermittent nausea and vomiting for months. Presented with worsening symptoms. No apparent obstruction or other acute process on CT of abdomen/pelvis. Seen in consultation by GI. EGD demonstrated gastric polyps. [place] most likely to have gastroparesis due to underlying diabetes and/or Parkinson's disease. Given information on gastroparesis diet. No nausea or vomiting since yesterday. Advance diet as tolerated. (2) Gastroesophageal reflux disease: Continue PPI. (3) Diabetes mellitus, type II: History of diet-controlled diabetes mellitus. Hemoglobin A1c 6.4 on 04/26/2019. Fasting blood sugar = 103. (4) Dyslipidemia: Continue atorvastatin. (5) Parkinson disease: Continue carbidopalevodopa. (6) Hypokalemia: Serum potassium 3.4. Replace. Follow. (7) DVT prophylaxis: SQ heparin. Ambulate. (8) Discharge planning issues: Anticipated discharge to home. Family Medicine follow-up with Dr. Mendez. Subjective Recheck for nausea, vomiting, and other problems. Patient seen in their room around 1550. Admitted with worsening nausea and vomiting. Seen earlier today by GI. EGD performed-found to have some gastric polyps, no other findings. [place] most likely to have gastroparesis. Given diet information by GI. Review of Systems: Constitutional- no fever. Cardiac- no chest pain. Pulmonary- no cough or SOB. GI- N&V improved; no diarrhea, melena, hematochezia. - no urinary symptoms. Otherwise, as noted above. Physical Exam Constitutional: no acute distress Respiratory: no respiratory distress Auscultation: lungs clear to auscultation bilaterally Cardiovascular: Rate/Rhythm: regular rate and regular rhythm Heart Sounds: no gallop, no murmur and no cardiac rub Vessels: no JVD Extremities: no calf tenderness and no edema Gastrointestinal (Abdomen): normal bowel sounds, soft, nontender, no hepatosplenomegaly Skin: no rashes, warm and dry Neurologic: Motor/Sensory: + tremor Psychiatric: Orientation: alert and oriented x 3 Results & Data Vital Signs (Past 12 Hours) Vital Signs Temp Pulse Pulse Resp BP Pulse Ox 06/09/19 15:10 36.4 C L 82 17 156/81 H 97 06/09/19 13:15 36.4 C L 85 16 150/85 H 93 06/09/19 13:03 84 85 20 153/91 H 93 06/09/19 12:40 94 H 18 163/80 H 92 06/09/19 12:37 80 16 105/52 L 92 06/09/19 11:52 36.8 C 90 20 189/93 H 96 06/09/19 07:40 36.6 C 80 18 160/84 H 93 Laboratory Results Laboratory Results - last 24 hr 06/09/19 06/09/19 06/09/19 06:34 06:34 06:34 WBC 5.41 RBC 4.64 Hgb 14.9 Hct 42.0 MCV 90.5 MCH 32.1 MCHC 35.5 RDW Std Deviation 45.1 RDW Coeff of Yareli 13.8 Plt Count 181 MPV 10.6 H PT 11.1 INR 1.1 Sodium 146 H Potassium 3.5 Chloride 111 H Carbon Dioxide 29 Anion Gap 6.0 BUN 9 D Creatinine 0.67 Est Cr Clr Drug Dosing 66.8 Est GFR ( Amer) 95.5 Est GFR (Non-Af Amer) 82.4 BUN/Creatinine Ratio 13.7 Glucose 103 H POC Glucose Calcium 8.6 Magnesium 2.0 Total Bilirubin 0.6 AST 16 ALT 11 L Alkaline Phosphatase 114 Total Protein 6.1 L Albumin 3.4 Globulin 2.7 Albumin/Globulin Ratio 1.3 06/09/19 06/09/19 17:07 20:17 WBC RBC Hgb Hct MCV MCH MCHC RDW Std Deviation RDW Coeff of Yareli Plt Count MPV PT INR Sodium Potassium Chloride Carbon Dioxide Anion Gap BUN Creatinine Est Cr Clr Drug Dosing Est GFR ( Amer) Est GFR (Non-Af Amer) BUN/Creatinine Ratio Glucose POC Glucose 89 109 H Calcium Magnesium Total Bilirubin AST ALT Alkaline Phosphatase Total Protein Albumin Globulin Albumin/Globulin Ratio (1) Intractable nausea and vomiting Vomiting type: unspecified Qualified Code(s): R11.2 - Nausea with vomiting, unspecified (2) Gastroesophageal reflux disease Esophagitis presence: esophagitis presence not specified Qualified Code(s): K21.9 - Gastro-esophageal reflux disease without esophagitis
[2019-06-09] MEDS ORDERED: POLYETHYLENE (MIRALAX) 17 GM PACK PO PRN (18:57)
[2019-06-10] MEDS: HEPARIN SOD 5,000 UNIT/0.5 ML VIAL SQ SCH ×3 (05:34→21:13)
--- NOTE | 2019-06-10 08:02 | Anesthesiology Progress Note ---
Date of Service June 10, 2019 Anesthesia Post Procedure Vital Signs Vital Signs: Temp Pulse Pulse Resp BP Pulse Ox 06/10/19 06:57 36.6 C 85 16 105/67 94 06/10/19 04:25 36.5 C 84 18 118/65 95 06/09/19 23:25 36.7 C 83 16 134/80 94 06/09/19 15:10 36.4 C L 82 17 156/81 H 97 06/09/19 13:15 36.4 C L 85 16 150/85 H 93 06/09/19 13:03 84 85 20 153/91 H 93 06/09/19 12:40 94 H 18 163/80 H 92 06/09/19 12:37 80 16 105/52 L 92 06/09/19 11:52 36.8 C 90 20 189/93 H 96 Pain Intensity Head: Pain Intensity: 0 Notes Mental Status: alert / awake / arousable and participated in evaluation Patient Amnestic to Procedure: Yes Nausea / Vomiting: adequately controlled Pain: adequately controlled Airway Patency, RR, SpO2: stable & adequate BP & HR: stable & adequate Hydration State: stable & adequate Anesthetic Complications: no major complications apparent
[2019-06-10 08:20] LABS: BUN Creatinine Ratio 11.8 (10-20); Calcium 9.3 mg/dl (8.5-10.1); Creatinine Clr Calc Pharmacy 50.9 ml/min; Est GFR (African American) 71.4; Est GFR (Non-African American) 61.6; Potassium 3.8 mmol/L (3.5-5.1)
[2019-06-10] MEDS: ALPRAZolam 0.25 MG TABLET PO PRN (09:09)
[2019-06-10] MEDS: CARBIDOPA/LEVODOPA 25/100MG TAB PO SCH ×3 (09:10→20:32)
[2019-06-10] MEDS: DULOXETINE HCL 60 MG CAP PO SCH (09:10)
[2019-06-10] MEDS: PRIMIDONE 50 MG TAB PO SCH ×2 (09:10→20:33)
[2019-06-10] MEDS: PANTOprazole 40 MG TAB PO SCH ×2 (09:10→20:32)
[2019-06-10] MEDS: BuPROPion SR 150 MG TABCR PO SCH ×2 (09:10→20:32)
--- NOTE | 2019-06-10 10:30 | Gastroenterology Progress Note ---
Date of Service June 10, 2019 Assessment & Plan (1) Nausea & vomiting: Nausea/vomiting most likely from gastroparesis, caused by DM and Parkinson's. The following were ruled out with normal EGD: katya, esophagitis, gastritis, ulcer disease. Meds may be contributing: Nausea associated with duloxetine (up to 23%), carbidopa-levodopa ( up to 20%), also primidone (percentage not reported) per [employer]. Plan: Would defer gastroparesis diet as would not likely change the plan of care. Even if normal would still presume gastroparesis. We are not able to medicate with metoclopramide as it worsens Parkinson's tremor/features. Gastroparesis diet discussed in detail (small frequent, low fiber soft foods that you can eat with a spoon). Pt indicates understanding but does state that she is willing to change her diet/eating habits. Ondansetron prn. GI will sign off. Please notify us if new/worsening GI issues. Subjective Ms. Holly Ward is an 79 yr old female with Parkinson's, DM-2 admitted for nausea/vomiting. Improved during hospitalization but returned again today after eating again beginning last night. Ondansetron helps, "some." EGD 06/09: normal. Review of Systems Review of Systems: ROS: Gen: Denies weakness, fevers, weight loss Eyes: No eye redness, or pain, no recent vision changes Resp: No SOB, no cough Cardio: No palpitations/irregular beats, no chest pain GI: + epigastric pressure, nausea (improved), no vomiting; denies melena, hematochezia; has chronic constipation, most recent BM about 5 days ago. : Denies pain on urination Skin: No jaundice, itching or new rashes Physical Exam Constitutional: WD/WN, vitals as above Eyes: PERRL, conjunctivae normal, anicteric sclerae ENMT: external ear and nose normal, oropharynx normal Neck: trachea midline, no thyromegaly Respiratory: normal respiratory effort, lungs clear to auscultation Cardiovascular: RRR, no murmur, no edema Gastrointestinal (Abdomen): normal bowel sounds, soft, nontender, no hepatosplenomegaly Skin: no rashes, warm and dry Psychiatric: A+Ox3, euthymic affect Lymphatic: no cervical or axillary lymphadenopathy Results & Data Vital Signs (Past 12 Hours) Vital Signs Temp Pulse Resp BP Pulse Ox 06/10/19 06:57 36.6 C 85 16 105/67 94 06/10/19 04:25 36.5 C 84 18 118/65 95 06/09/19 23:25 36.7 C 83 16 134/80 94 (1) Nausea & vomiting Vomiting Intractability: non-intractable Vomiting type: unspecified Qualified Code(s): R11.2 - Nausea with vomiting, unspecified
[2019-06-10] MEDS ORDERED: BISACODYL 5 MG TABEC PO ONE (14:00)
--- NOTE | 2019-06-10 19:31 | Hospitalist Progress Note ---
Date of Service June 10, 2019 Assessment & Plan (1) Intractable nausea and vomiting: Intermittent nausea and vomiting for months. Presented with worsening symptoms. No apparent obstruction or other acute process on CT of abdomen/pelvis. Seen in consultation by GI. EGD demonstrated gastric polyps. [place] most likely to have gastroparesis due to underlying diabetes and/or Parkinson's disease. Given information on gastroparesis diet. No nausea or vomiting since yesterday. Advance diet as tolerated. (2) Gastroesophageal reflux disease: Continue PPI. (3) Diabetes mellitus, type II: History of diet-controlled diabetes mellitus. Hemoglobin A1c 6.4 on 04/26/2019. Fasting blood sugar = 133. (4) Dyslipidemia: Continue atorvastatin. (5) Parkinson disease: Continue carbidopalevodopa. (6) Hypokalemia: Serum potassium as low as 3.4. Replaced. Potassium today = 3.8. Follow. (7) Constipation: Bowel regimen is ordered. (8) DVT prophylaxis: SQ heparin. Ambulate. (9) Discharge planning issues: Anticipated discharge to home. Family Medicine follow-up with Dr. Mendez. Subjective Recheck for nausea, vomiting, and other problems. Patient seen in their room around 1200. Experienced nausea last night and this morning, no further emesis. No abdominal pain. No bowel movement for several days. Tried MiraLAX last night without benefit. Review of Systems: Constitutional- no fever. Cardiac- no chest pain. Pulmonary- no cough or SOB. GI- as noted above. - no urinary symptoms. Otherwise, as noted above. Physical Exam Constitutional: no acute distress Respiratory: no respiratory distress Auscultation: lungs clear to auscultation bilaterally Cardiovascular: Rate/Rhythm: regular rate and regular rhythm Heart Sounds: no gallop, no murmur and no cardiac rub Vessels: no JVD Extremities: no calf tenderness and no edema Gastrointestinal (Abdomen): normal bowel sounds, soft, nontender, no hepatosplenomegaly Inspection/Auscultation: + abdomen distended Skin: no rashes, warm and dry Neurologic: Motor/Sensory: + tremor Psychiatric: Orientation: alert and oriented x 3 Results & Data Vital Signs (Past 12 Hours) Vital Signs Temp Pulse Resp BP Pulse Ox 06/10/19 14:59 36.9 C 87 18 136/81 93 Laboratory Results 06/09/19 06:34 06/10/19 07:36 (1) Intractable nausea and vomiting Vomiting type: unspecified Qualified Code(s): R11.2 - Nausea with vomiting, unspecified (2) Gastroesophageal reflux disease Esophagitis presence: esophagitis presence not specified Qualified Code(s): K21.9 - Gastro-esophageal reflux disease without esophagitis
[2019-06-11 05:47] LABS: Hematocrit (blood only) 43.4 % (37-47); Mean Corpuscular Hgb Conc 34.6 g/dL (32-36); Mean Corpuscular Volume 90.4 fL (80-100); Mean Platelet Volume 10.5 fL (7.4-10.4); Platelet Count 165 K/uL (130-400); RDW Coefficient of Variation 13.6 % (11.5-14.5); RDW Standard Deviation 44.9 fL (36.4-46.3); White Blood Count 5.09 K/uL (4.8-10.8)
[2019-06-11] MEDS: HEPARIN SOD 5,000 UNIT/0.5 ML VIAL SQ SCH ×3 (05:58→21:41)
[2019-06-11] MEDS: PRIMIDONE 50 MG TAB PO SCH ×2 (07:49→20:42)
[2019-06-11] MEDS: DULOXETINE HCL 60 MG CAP PO SCH (07:49)
[2019-06-11] MEDS: PANTOprazole 40 MG TAB PO SCH ×2 (07:49→20:42)
[2019-06-11] MEDS: CARBIDOPA/LEVODOPA 25/100MG TAB PO SCH ×3 (07:50→20:42)
[2019-06-11] MEDS: BuPROPion SR 150 MG TABCR PO SCH ×2 (07:50→20:42)
[2019-06-11] MEDS: ONDANSETRON 4 MG OD TAB PO PRN ×2 (13:00→21:45)
[2019-06-11] MEDS ORDERED: BISACODYL 5 MG TABEC PO SCH (19:00)
--- NOTE | 2019-06-11 19:11 | Hospitalist Progress Note ---
Date of Service June 11, 2019 Assessment & Plan (1) Intractable nausea and vomiting: Intermittent nausea and vomiting for months. Presented with worsening symptoms. No apparent obstruction or other acute process on CT of abdomen/pelvis. Seen in consultation by GI. EGD demonstrated gastric polyps. [place] most likely to have gastroparesis due to underlying diabetes and/or Parkinson's disease. Given information on gastroparesis diet. No further emesis, but ongoing nausea. Advance diet as tolerated. (2) Gastroesophageal reflux disease: Continue PPI. (3) Diabetes mellitus, type II: History of diet-controlled diabetes mellitus. Hemoglobin A1c 6.4 on 04/26/2019. Fasting blood sugar 06/10 was 133. (4) Dyslipidemia: Continue atorvastatin. (5) Parkinson disease: Continue carbidopalevodopa. (6) Hypokalemia: Serum potassium as low as 3.4. Replaced. Potassium 06/10 was 3.8. Follow. (7) Constipation: Bowel regimen is ordered. (8) DVT prophylaxis: SQ heparin. Ambulate. (9) Discharge planning issues: Anticipated discharge to home. Family Medicine follow-up with Dr. Mendez. Subjective Recheck for nausea, vomiting, and other problems. Patient seen in their room around 1100. Ongoing nausea, but no further emesis. Poor appetite. No abdominal pain. No bowel movement for several days. Tried bisacodyl last night without benefit. Review of Systems: Constitutional- no fever. Cardiac- no chest pain. Pulmonary- no cough or SOB. GI- as noted above. - no urinary symptoms. Otherwise, as noted above. Physical Exam Constitutional: no acute distress Respiratory: no respiratory distress Auscultation: lungs clear to auscultation bilaterally Cardiovascular: Rate/Rhythm: regular rate and regular rhythm Heart Sounds: no gallop, no murmur and no cardiac rub Vessels: no JVD Extremities: no calf tenderness and no edema Gastrointestinal (Abdomen): normal bowel sounds, soft, nontender, no hepatosplenomegaly Inspection/Auscultation: + abdomen distended Skin: no rashes, warm and dry Neurologic: Motor/Sensory: + tremor Psychiatric: Orientation: alert and oriented x 3 Results & Data Vital Signs (Past 12 Hours) Vital Signs Temp Pulse Resp BP Pulse Ox 06/11/19 15:51 36.7 C 84 16 110/70 97 Laboratory Results 06/11/19 05:37 06/10/19 07:36 (1) Intractable nausea and vomiting Vomiting type: unspecified Qualified Code(s): R11.2 - Nausea with vomiting, unspecified (2) Gastroesophageal reflux disease Esophagitis presence: esophagitis presence not specified Qualified Code(s): K21.9 - Gastro-esophageal reflux disease without esophagitis
[2019-06-11] MEDS: ALPRAZolam 0.25 MG TABLET PO PRN (20:47)
[2019-06-12] MEDS: HEPARIN SOD 5,000 UNIT/0.5 ML VIAL SQ SCH ×3 (05:52→21:05)
[2019-06-12] MEDS: ONDANSETRON 4 MG OD TAB PO PRN (08:19)
[2019-06-12] MEDS: PRIMIDONE 50 MG TAB PO SCH ×2 (08:20→20:57)
[2019-06-12] MEDS: PANTOprazole 40 MG TAB PO SCH ×2 (08:20→20:57)
[2019-06-12] MEDS: CARBIDOPA/LEVODOPA 25/100MG TAB PO SCH ×3 (08:20→20:57)
[2019-06-12] MEDS: DULOXETINE HCL 60 MG CAP PO SCH (08:20)
[2019-06-12] MEDS: BuPROPion SR 150 MG TABCR PO SCH ×2 (08:20→20:57)
[2019-06-12 08:50] LABS: BUN Creatinine Ratio 21.6 (10-20); Calcium 9.3 mg/dl (8.5-10.1); Creatinine Clr Calc Pharmacy 61.4 ml/min; Est GFR (African American) 89.5; Est GFR (Non-African American) 77.2; Potassium 3.7 mmol/L (3.5-5.1)
--- NOTE | 2019-06-12 13:27 | Hospitalist Progress Note ---
Date of Service June 12, 2019 Assessment & Plan (1) Intractable nausea and vomiting: Intermittent nausea and vomiting for months. Presented with worsening symptoms. No apparent obstruction or other acute process on CT of abdomen/pelvis. Seen in consultation by GI. EGD demonstrated gastric polyps. [place] most likely to have gastroparesis due to underlying diabetes and/or Parkinson's disease. Given information on gastroparesis diet. Ongoing nausea and anorexia; vomited twice in last 24 hrs. Not good candidate for metoclopramide. Try full liquids until symptoms improved. Advance diet as tolerated. (2) Gastroesophageal reflux disease: Continue PPI. (3) Diabetes mellitus, type II: History of diet-controlled diabetes mellitus. Hemoglobin A1c 6.4 on 04/26/2019. Fasting blood sugar today = 107. (4) Dyslipidemia: Continue atorvastatin. (5) Parkinson disease: Continue carbidopalevodopa. (6) Hypokalemia: Serum potassium as low as 3.4. Replaced. Potassium today = 3.7. Follow. (7) Constipation: Last BM about a week ago. Usually has one every few days. No apparent obstruction on CT 05/31 or plain abdominal films 06/08. Bowel regimen as ordered. (8) DVT prophylaxis: SQ heparin. Ambulate. (9) Discharge planning issues: Anticipated discharge to home. Family Medicine follow-up with Dr. Mendez. Subjective Recheck for nausea, vomiting, and other problems. Patient seen in their room around 1100. Recurrent vomiting last night and this morning- no gross blood or coffee grounds. Poor appetite. No abdominal pain. No bowel movement for several days despite laxatives and enemas. Frustrated due to ongoing symptoms and hospital stay. Review of Systems: Constitutional- no fever. Cardiac- no chest pain. Pulmonary- no cough or SOB. GI- as noted above. - no urinary symptoms. Otherwise, as noted above. Physical Exam Constitutional: no acute distress Respiratory: no respiratory distress Auscultation: lungs clear to auscultation bilaterally Cardiovascular: Rate/Rhythm: regular rate and regular rhythm Heart Sounds: no gallop, no murmur and no cardiac rub Vessels: no JVD Extremities: no calf tenderness and no edema Gastrointestinal (Abdomen): normal bowel sounds, soft, nontender, no hepatosplenomegaly Inspection/Auscultation: + abdomen distended Skin: no rashes, warm and dry Neurologic: Motor/Sensory: + tremor Psychiatric: Orientation: alert and oriented x 3 Results & Data Vital Signs (Past 12 Hours) Vital Signs Temp Pulse Resp BP Pulse Ox 06/12/19 07:57 36.6 C 88 18 137/78 90 Laboratory Results 06/11/19 05:37 06/12/19 08:00 (1) Intractable nausea and vomiting Vomiting type: unspecified Qualified Code(s): R11.2 - Nausea with vomiting, unspecified (2) Gastroesophageal reflux disease Esophagitis presence: esophagitis presence not specified Qualified Code(s): K21.9 - Gastro-esophageal reflux disease without esophagitis
[2019-06-12] MEDS: POLYETHYLENE (MIRALAX) 17 GM PACK PO SCH ×2 (14:02→20:56)
[2019-06-13] MEDS: HEPARIN SOD 5,000 UNIT/0.5 ML VIAL SQ SCH ×3 (05:30→21:04)
[2019-06-13 06:47] LABS: BUN Creatinine Ratio 19.6 (10-20); Creatinine Clr Calc Pharmacy 66.8 ml/min; Est GFR (African American) 95.5; Est GFR (Non-African American) 82.4; Potassium 3.2 mmol/L (3.5-5.1)
[2019-06-13] MEDS: POTASSIUM CHLORIDE / WTR 10 MEQ/100 ML PLCT IV SCH ×2 (08:29→10:37)
[2019-06-13] MEDS: PRIMIDONE 50 MG TAB PO SCH ×2 (08:30→20:14)
[2019-06-13] MEDS: DULOXETINE HCL 60 MG CAP PO SCH (08:30)
[2019-06-13] MEDS: BuPROPion SR 150 MG TABCR PO SCH ×2 (08:30→20:14)
[2019-06-13] MEDS: PANTOprazole 40 MG TAB PO SCH ×2 (08:30→20:14)
[2019-06-13] MEDS: CARBIDOPA/LEVODOPA 25/100MG TAB PO SCH ×3 (08:54→20:14)
[2019-06-13] MEDS: ONDANSETRON 4 MG OD TAB PO PRN (08:54)
[2019-06-13] MEDS: POLYETHYLENE (MIRALAX) 17 GM PACK PO SCH ×2 (10:40→13:35)
--- NOTE | 2019-06-13 14:32 | Hospitalist Progress Note ---
Date of Service June 13, 2019 Assessment & Plan (1) Intractable nausea and vomiting: Intermittent nausea and vomiting for months. Presented with worsening symptoms. No apparent obstruction or other acute process on CT of abdomen/pelvis. Seen in consultation by GI. EGD demonstrated gastric polyps. [place] most likely to have gastroparesis due to underlying diabetes and/or Parkinson's disease. Given information on gastroparesis diet. Ongoing nausea and anorexia; vomited twice in last 24 hrs. Not good candidate for metoclopramide. Full liquids until symptoms improved. Advance diet as tolerated. Discuss case further with GI if symptoms do not improve. (2) Gastroesophageal reflux disease: Continue PPI. (3) Diabetes mellitus, type II: History of diet-controlled diabetes mellitus. Hemoglobin A1c 6.4 on 04/26/2019. Fasting blood sugar today = 99. (4) Dyslipidemia: Continue atorvastatin. (5) Parkinson disease: Continue carbidopalevodopa. (6) Hypokalemia: Serum potassium as low as 3.4. Potassium today = 3.2. Replace. Follow. (7) Constipation: Last BM about a week ago. Usually has one every few days. No apparent obstruction on CT 05/31 or plain abdominal films 06/08. Bowel regimen as ordered. (8) DVT prophylaxis: SQ heparin. Ambulate. (9) Discharge planning issues: Anticipated discharge to home. Family Medicine follow-up with Dr. Mendez. Subjective Recheck for nausea, vomiting, and other problems. Patient seen in their room around 1420. Persistent nausea and anorexia. No emesis today. No BM for about 1 week despite laxatives and enemas. Urine appears to be concentrated; no dysuria Ambulating in hallway with assistance. Review of Systems: Constitutional- no fever. Cardiac- no chest pain. Pulmonary- no cough or SOB. GI- as noted above. - as noted above. Otherwise, as noted above. Physical Exam 2 Constitutional: no acute distress Respiratory: no respiratory distress Auscultation: lungs clear to auscultation bilaterally Cardiovascular: Rate/Rhythm: regular rate and regular rhythm Heart Sounds: no gallop, no murmur and no cardiac rub Vessels: no JVD Extremities: no calf tenderness and no edema Gastrointestinal (Abdomen): normal bowel sounds, soft, nontender, no hepatos plenomegaly Inspection/Auscultation: + abdomen distended Skin: no rashes, warm and dry Neurologic: Motor/Sensory: + tremor Psychiatric: Orientation: alert and oriented x 3 Results & Data Vital Signs (Past 12 Hours) Vital Signs Temp Pulse Resp BP Pulse Ox 06/13/19 07:00 36.8 C 78 20 118/74 96 Laboratory Results 06/11/19 05:37 06/13/19 05:21 (1) Intractable nausea and vomiting Vomiting type: unspecified Qualified Code(s): R11.2 - Nausea with vomiting, unspecified (2) Gastroesophageal reflux disease Esophagitis presence: esophagitis presence not specified Qualified Code(s): K21.9 - Gastro-esophageal reflux disease without esophagitis
[2019-06-13] MEDS ORDERED: NSS + 20MEQ KCL 20 MEQ/1,000 ML BAG IV SCH (14:45)
[2019-06-13] MEDS ORDERED: BISACODYL 10 MG SUPP PR ONE (20:00)
[2019-06-14] MEDS: ONDANSETRON 4 MG OD TAB PO PRN (00:24)
[2019-06-14] MEDS: HEPARIN SOD 5,000 UNIT/0.5 ML VIAL SQ SCH ×3 (05:29→21:01)
[2019-06-14 06:18] LABS: Hematocrit (blood only) 40.1 % (37-47); Mean Corpuscular Hgb Conc 34.9 g/dL (32-36); Mean Corpuscular Volume 89.9 fL (80-100); Mean Platelet Volume 10.7 fL (7.4-10.4); Platelet Count 158 K/uL (130-400); RDW Coefficient of Variation 13.9 % (11.5-14.5); RDW Standard Deviation 45.6 fL (36.4-46.3); Red Blood Count 4.46 M/uL (4.2-5.4); White Blood Count 5.63 K/uL (4.8-10.8)
[2019-06-14 06:47] LABS: BUN Creatinine Ratio 16.8 (10-20); Calcium 8.9 mg/dl (8.5-10.1); Creatinine Clr Calc Pharmacy 66.8 ml/min; Est GFR (African American) 95.5; Est GFR (Non-African American) 82.4; Potassium 3.6 mmol/L (3.5-5.1)
[2019-06-14] MEDS: DULOXETINE HCL 60 MG CAP PO SCH (08:55)
[2019-06-14] MEDS: PANTOprazole 40 MG TAB PO SCH ×2 (08:56→20:59)
[2019-06-14] MEDS: CARBIDOPA/LEVODOPA 25/100MG TAB PO SCH ×3 (08:56→20:59)
[2019-06-14] MEDS: BuPROPion SR 150 MG TABCR PO SCH ×2 (08:56→21:00)
[2019-06-14] MEDS: PRIMIDONE 50 MG TAB PO SCH ×2 (08:56→20:58)
--- NOTE | 2019-06-14 15:57 | XRay Report ---
XR abdomen 2V w PA chest CLINICAL HISTORY: r/o ileus, obstruction pain COMPARISON STUDY: 06/08/2019 FINDINGS: The soft tissues, psoas shadows, renal outlines and intestinal gas pattern appear normal. T here is no evidence for bowel obstruction. There is no evidence for free intraperitoneal air. No abno rmal abdominal calcifications are seen. A frontal view of the chest was performed and is unremarkable . IMPRESSION: Normal study. The above report was generated using voice recognition software. It may contain grammatical, syntax or spelling errors. Electronically signed by: Chuy Sparrow M.D. 06/14/2019 3:56 PM
[2019-06-14] MEDS ORDERED: GLYCERIN ADULT 12 EA SUPP PR ONE (17:44)
[2019-06-14] MEDS ORDERED: BISACODYL 5 MG TABEC PO ONE (20:00)
--- NOTE | 2019-06-14 23:04 | Hospitalist Progress Note ---
Date of Service June 14, 2019 Assessment & Plan (1) Intractable nausea and vomiting: Intermittent nausea and vomiting for months. Presented with worsening symptoms. No apparent obstruction or other acute process on CT of abdomen/pelvis. Seen in consultation by GI. EGD demonstrated gastric polyps. [place] most likely to have gastroparesis due to underlying diabetes and/or Parkinson's disease. Given information on gastroparesis diet. Ongoing nausea and anorexia; vomited twice in last 24 hrs. Not good candidate for metoclopramide. Full liquids until symptoms improved. Advance diet as tolerated. Discuss case further with GI if symptoms do not improve. (2) Gastroesophageal reflux disease: Continue PPI. (3) Diabetes mellitus, type II: History of diet-controlled diabetes mellitus. Hemoglobin A1c 6.4 on 04/26/2019. Fasting blood sugar today = 94. (4) Dyslipidemia: Continue atorvastatin. (5) Parkinson disease: Continue carbidopalevodopa. (6) Hypokalemia: Serum potassium as low as 3.4. Potassium today = 3.6. Replace. Follow. (7) Constipation: Last BM > 1 week ago. Usually has one every few days. No apparent obstruction on CT 05/31 or plain abdominal films 06/08 and today. No significant results with MiraLax, PO Dulcolax, soap suds enema. Try glycerin suppository + PO Dulcolax today. (8) DVT prophylaxis: SQ heparin. Ambulate. (9) Discharge planning issues: Anticipated discharge to home. Family Medicine follow-up with Dr. Mendez. Subjective Recheck for nausea, vomiting, and other problems. Patient seen in their room around 1120. Ate some of her full liquid breakfast. Persistent nausea and anorexia. No vomiting today. Still constipated; no BM for about 1 week despite laxatives and enemas. Review of Systems: Constitutional- no fever. Cardiac- no chest pain. Pulmonary- no cough or SOB. GI- as noted above. - no dysuria. Otherwise, as noted above. Physical Exam Constitutional: no acute distress Respiratory: no respiratory distress Auscultation: lungs clear to auscultation bilaterally Cardiovascular: Rate/Rhythm: regular rate and regular rhythm Heart Sounds: no gallop, no murmur and no cardiac rub Vessels: no JVD Extremities: no calf tenderness and no edema Gastrointestinal (Abdomen): normal bowel sounds, soft, nontender, no hepatosplenomegaly Inspection/Auscultation: + abdomen distended Skin: no rashes, warm and dry Neurologic: Motor/Sensory: + tremor Psychiatric: Orientation: alert and oriented x 3 Results & Data Vital Signs (Past 12 Hours) Vital Signs Temp Pulse Resp BP Pulse Ox 06/14/19 14:50 36.5 C 78 18 128/72 95 Laboratory Results 06/14/19 05:26 06/14/19 05:26 Diagnostic Findings ABDOMINAL FILMS FINDINGS: The soft tissues, psoas shadows, renal outlines and intestinal gas pattern appear normal. There is no evidence for bowel obstruction. There is no evidence for free intraperitoneal air. No abnormal abdominal calcifications are seen. A frontal view of the chest was performed and is unremarkable. IMPRESSION: Normal study. The above report was generated using voice recognition software. It may contain grammatical, syntax or spelling errors. Electronically signed by: Chuy Sparrow M.D. 06/14/2019 3:56 PM (1) Intractable nausea and vomiting Vomiting type: unspecified Qualified Code(s): R11.2 - Nausea with vomiting, unspecified (2) Gastroesophageal reflux disease Esophagitis presence: esophagitis presence not specified Qualified Code(s): K21.9 - Gastro-esophageal reflux disease without esophagitis
[2019-06-15] MEDS: HEPARIN SOD 5,000 UNIT/0.5 ML VIAL SQ SCH ×3 (05:48→21:18)
[2019-06-15] MEDS: CARBIDOPA/LEVODOPA 25/100MG TAB PO SCH ×3 (09:00→21:13)
[2019-06-15] MEDS: PANTOprazole 40 MG TAB PO SCH ×2 (09:00→21:14)
[2019-06-15] MEDS: PRIMIDONE 50 MG TAB PO SCH ×2 (09:00→21:13)
[2019-06-15] MEDS: BuPROPion SR 150 MG TABCR PO SCH ×2 (09:00→21:14)
[2019-06-15] MEDS: DULOXETINE HCL 60 MG CAP PO SCH (09:00)
[2019-06-15] MEDS: ALPRAZolam 0.25 MG TABLET PO PRN ×2 (09:03→21:18)
[2019-06-15] MEDS ORDERED: BISACODYL 5 MG TABEC PO ONE (14:00)
[2019-06-15] MEDS ORDERED: MAGNESIUM HYDROXIDE SUSP 30 ML UDC PO ONE (18:50)
--- NOTE | 2019-06-15 22:25 | Hospitalist Progress Note ---
Date of Service June 15, 2019 Assessment & Plan (1) Intractable nausea and vomiting: Intermittent nausea and vomiting for months. Presented with worsening symptoms. No apparent obstruction or other acute process on CT of abdomen/pelvis. Seen in consultation by GI. EGD demonstrated gastric polyps. [place] most likely to have gastroparesis due to underlying diabetes and/or Parkinson's disease. Given information on gastroparesis diet. Ongoing nausea and anorexia; vomited twice in last 24 hrs. Not good candidate for metoclopramide. Full liquids until symptoms improved. Advance diet as tolerated. Discuss case further with GI if symptoms do not improve. (2) Gastroesophageal reflux disease: Continue PPI. (3) Diabetes mellitus, type II: History of diet-controlled diabetes mellitus. Hemoglobin A1c 6.4 on 04/26/2019. Fasting blood sugar today = 126. (4) Dyslipidemia: Continue atorvastatin. (5) Parkinson disease: Continue carbidopalevodopa. (6) Hypokalemia: Serum potassium as low as 3.4. Potassium 06/14 was 3.6. Replace. Follow. (7) Constipation: Last BM > 1 week ago. Usually has one every few days. No apparent obstruction on CT 05/31 or plain abdominal films 06/08 and 06/14. No significant results with MiraLax, PO Dulcolax, soap suds enema. Unable to tolerate too many doses of MiraLax because of gastroparesis. Tried glycerine suppository + PO Dulcolax yesterday, again without results. Try soaps suds enema + PO Dulcolax today. (8) DVT prophylaxis: SQ heparin. Ambulate. (9) Discharge planning issues: Anticipated discharge to home. Family Medicine follow-up with Dr. Mendez. Subjective Recheck for nausea, vomiting, and other problems. Patient seen in their room around 1530. Vomited again last evening. Persistent nausea and anorexia. Still constipated; no BM for more 1 week despite multiple doses of laxatives and enemas. Review of Systems: Constitutional- no fever. Cardiac- no chest pain. Pulmonary- no cough or SOB. GI- as noted above. - no dysuria. Otherwise, as noted above. Physical Exam Constitutional: no acute distress Respiratory: no respiratory distress Auscultation: lungs clear to auscultation bilaterally Cardiovascular: Rate/Rhythm: regular rate and regular rhythm Heart Sounds: no gallop, no murmur and no cardiac rub Vessels: no JVD Extremities: no calf tenderness and no edema Gastrointestinal (Abdomen): normal bowel sounds, soft, nontender, no hepatosplenomegaly Inspection/Auscultation: + abdomen distended Skin: no rashes, warm and dry Neurologic: Motor/Sensory: + tremor Psychiatric: Orientation: alert and oriented x 3 Results & Data Vital Signs (Past 12 Hours) Vital Signs Temp Pulse Resp BP Pulse Ox 06/15/19 15:29 36.5 C 76 18 120/72 95 (1) Intractable nausea and vomiting Vomiting type: unspecified Qualified Code(s): R11.2 - Nausea with vomiting, unspecified (2) Gastroesophageal reflux disease Esophagitis presence: esophagitis presence not specified Qualified Code(s): K21.9 - Gastro-esophageal reflux disease without esophagitis
[2019-06-16] MEDS: HEPARIN SOD 5,000 UNIT/0.5 ML VIAL SQ SCH ×2 (05:10→14:04)
[2019-06-16] MEDS: BuPROPion SR 150 MG TABCR PO SCH (08:50)
[2019-06-16] MEDS: PANTOprazole 40 MG TAB PO SCH (08:50)
[2019-06-16] MEDS: DULOXETINE HCL 60 MG CAP PO SCH (08:50)
[2019-06-16] MEDS: PRIMIDONE 50 MG TAB PO SCH (08:51)
[2019-06-16] MEDS: CARBIDOPA/LEVODOPA 25/100MG TAB PO SCH ×2 (08:51→14:05)
--- NOTE | 2019-06-16 16:23 | Hospitalist Progress Note ---
Date of Service June 16, 2019 Assessment & Plan (1) Intractable nausea and vomiting: Intermittent nausea and vomiting for months. Presented with worsening symptoms. No apparent obstruction or other acute process on CT of abdomen/pelvis. Seen in consultation by GI. EGD demonstrated gastric polyps. [place] most likely to have gastroparesis due to underlying diabetes and/or Parkinson's disease. Given information on gastroparesis diet. Patient taking duloxetine for depression- could be causing worsening symptoms from gastroparesis. Try to taper and discontinue duloxetine. (2) Gastroesophageal reflux disease: Continue PPI. (3) Diabetes mellitus, type II: History of diet-controlled diabetes mellitus. Hemoglobin A1c 6.4 on 04/26/2019. Fasting blood sugar day of discharge 95. (4) Dyslipidemia: Continue atorvastatin. (5) Parkinson disease: Continue carbidopalevodopa. (6) Hypokalemia: Serum potassium as low as 3.4. Potassium 06/14 was 3.6. Replaced Follow. (7) Constipation: Last BM > 1 week ago. Usually has one every few days. No apparent obstruction on CT 05/31 or plain abdominal films 06/08 and 06/14. Finally had results after several doses of laxatives + enemas. Discharge on MiraLax once or twice a day + Dulcolax tabs PRN. Consider outpatient colonoscopy if not done recently. (8) DVT prophylaxis: SQ heparin. Ambulating (9) Discharge planning issues: Discharge to home. Family Medicine follow-up with Dr. Bennett. Subjective Recheck for nausea, vomiting, and other problems. Patient seen in their room this afternoon. Finally moved her bowels after several doses of laxatives and enemas. Still nauseated after eating, but no emesis today. Ondansetron does not seem to help nausea. Anxious to go home. Review of Systems: Constitutional- no fever. Cardiac- no chest pain. Pulmonary- no cough or SOB. GI- as noted above. - no dysuria. Otherwise, as noted above. Physical Exam Constitutional: no acute distress Respiratory: no respiratory distress Auscultation: lungs clear to auscultation bilaterally Cardiovascular: Rate/Rhythm: regular rate and regular rhythm Heart Sounds: no gallop, no murmur and no cardiac rub Vessels: no JVD Extremities: no calf tenderness and no edema Gastrointestinal (Abdomen): normal bowel sounds, soft, nontender, no hepatosplenomegaly Inspection/Auscultation: + abdomen distended (less distended) Skin: no rashes, warm and dry Neurologic: Motor/Sensory: + tremor Psychiatric: Orientation: alert and oriented x 3 Results & Data Vital Signs (Past 12 Hours) Vital Signs Temp Pulse Pulse Resp BP Pulse Ox 06/16/19 15:35 37 C 82 18 161/82 H 95 06/16/19 08:00 36.6 C 85 20 116/72 91 (1) Intractable nausea and vomiting Vomiting type: unspecified Qualified Code(s): R11.2 - Nausea with vomiting, unspecified (2) Gastroesophageal reflux disease Esophagitis presence: esophagitis presence not specified Qualified Code(s): K21.9 - Gastro-esophageal reflux disease without esophagitis
--- NOTE | 2019-06-16 17:16 | Discharge Summary ---
Date of Service Date of Admission: 06/08/19 Date of Discharge: 06/16/19 Admission HPI Per Admitting Provider Pt is 79 y/o F with PMH HTN, dyslipidemia, GERD, depression, anxiety, tremor, Parkinson's, DM II, chronic back pain presented to ER with complaint of nausea and vomiting. Patient reports intermittent nausea and vomiting for the past 3 weeks. She reports symptoms seem to occur when she is up moving around. Describes nausea followed by "lump sensation" to epigastric region. Patient describes the lump sensation as an ache and reports no other abdominal pain. Patient reports will have vomiting sometimes several times a day. Reports numerous episodes of vomiting today. Reports symptoms are improved with lying supine. States he has been eating soup and sherbet. Patient is unsure if food aggravates symptoms. Patient reports increased belching. 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 Denies any difficulty swallowing or painful swallowing. Denies food bolus sensation. Patient reports chronic intermittent heartburn with lying down at bedtime and reports takes Tums a couple times a week for this. Patient was seen by PCP office on 05/20/2019 for nausea and vomiting. Had a negative urine culture at that point time. Patient is on omeprazole 20 mg twice daily. Patient seen in ER 05/31/2019 for similar symptoms and CT abdomen pelvis at that time was without acute intra-abdominal pathology, noted Punctate right nephrolithiasis vs renovascular calcification, no hydronephrosis and no diverticulitis. She was given IVF and discharged home on Zofran. Patient reports took Zofran but continues to have symptoms. She denies caffeine intake. Patient reports takes Aleve 2 to 3 pills per dose every couple of days for chronic back and neck pain. Patient is on baby aspirin. Patient reports is more forgetful and often has hard time with her medications. She reports she is supposed to be getting pill packs to help her with her meds. Reports recently got life alert however she sometimes forgets to wear. Reports was having frequent falls however now has rolling walker reports no falls for the past 3 weeks. Denies history EGD in past. Denies fever/chills, diaphoresis, hematemesis, melena, hematochezia, dysuria, urinary frequency, urinary retention or hesitancy, hematuria, SCRUGGS, dizziness, syncope, vision changes, neck pain, CP, SOB, orthopnea, palpitations, cough, sore throat, choking, otalgia, rhinorrhea, paresthesias, weakness, extremity weakness, extremity edema, rashes. Denies recent travel, recent antibiotic use, ill contacts. Patient reports moves home alone. Principal Diagnosis nausea and vomiting secondary to gastroparesis Discharge Data Allergies Allergy/AdvReac Type Severity Reaction Status Date / Time codeine Allergy Severe SEVERE Verified 06/08/19 16:43 HEADACHE, NAUSEA & VOMITING morphine Allergy Severe SEVERE Verified 06/08/19 16:43 HEADACHE, NAUSEA, & VOMITING pentazocine [From [facility]] Allergy Severe DECREASED Verified 06/08/19 16:43 MOTOR SKILL, SOB. Consultations 06/08/19 18:47 ED Decision to Admit Stat 06/08/19 21:27 Consult Case Management - Discharge Planning Routine Consult Gastroenterology Routine Procedures Performed Operation Date: 06/09/19 08:30 Actual Procedures p EGD Biopsy Cytology(Not Applicable) - Alverto Pop MD Hospital Course (1) Intractable nausea and vomiting: Intermittent nausea and vomiting for months. Presented with worsening symptoms. No apparent obstruction or other acute process on CT of abdomen/pelvis. Seen in consultation by GI. EGD demonstrated gastric polyps. [place] most likely to have gastroparesis due to underlying diabetes and/or Parkinson's disease. Pt not good candidate for metoclopramide because of Parkinson's disease and tremors. Given information on gastroparesis diet. Patient taking duloxetine for depression- could be causing worsening symptoms from gastroparesis. Try to taper and discontinue duloxetine. (2) Gastroesophageal reflux disease: Continue PPI. (3) Diabetes mellitus, type II: History of diet-controlled diabetes mellitus. Hemoglobin A1c 6.4 on 04/26/2019. Fasting blood sugar day of discharge 95. (4) Dyslipidemia: Continue atorvastatin. (5) Parkinson disease: Continue carbidopalevodopa. (6) Hypokalemia: Serum potassium as low as 3.4. Potassium 06/14 was 3.6. Replaced Follow. (7) Constipation: No apparent obstruction on CT 05/31 or plain abdominal films 06/08 and 06/14. Finally had results after several doses of laxatives + enemas. Discharge on MiraLax once or twice a day + Dulcolax tabs PRN. Consider outpatient colonoscopy if not done recently. (8) DVT prophylaxis: SQ heparin. Ambulating (9) Discharge planning issues: Discharge to home. Family Medicine follow-up with Dr. Bennett. Total Time Total Time Spent Total Time Spent (In Minutes): 40 Discharge Plan Discharge Items Patient Disposition: Home - Self-Care Reason For Visit: severe nausea and vomiting Discharge Diagnosis: nausea and vomiting due to gastroparesis Condition: Good Discharge Goals: Decrease discomfort and Improve disease control Activity: Resume your previous activity Non-emergency contact: Primary Care Provider and Hospitalist Call non-emergency contact if: you have any medication questions and your symptoms worsen Diet: Carb Consistent or DM2, Heart Healthy and See below Diet Comment: gastroparesis diet as instructed Addtl Provider Instructions: MEDICATION CHANGES: Duloxetine (Cymbalta) can cause nausea, vomiting, constipation. Try tapering it to see if you feel better: 30 mg daily for 7 days, then 30 mg every other day until gone Try (polyethylene glycol) MiraLax for constipation. Mix 1 scoop in 4 ounces of your favorite beverage. Take daily. May take second dose if necessary. No prescription necessary. May use Dulcolax tablets once or twice a week for constipation. Suggest taking 10 mg (two 5 mg pills). No prescription necessary. SUMMARY OF TEST RESULTS: Endoscopy of stomach showed benign polyps, no ulcers or other problems. X-rays of abdomen did not show any blockage. PENDING TEST RESULTS: Stool test for Helicobacter. FOLLOW-UP APPOINTMENTS: 06/22/2019 1:00 PM Sunita Monroy MD (covering for Dr. Bennett) [facility] OTHER INSTRUCTIONS: Gastroparesis diet as instructed by GI team. Small meals, low fiber. Small snacks between meals. Use nutritional supplements like Boost or Ensure. Suggest 2 containers a day if possible, 1/2 container at a time. Seek medical attention if you have: * temperature above 101 * chest pain or trouble breathing * abdominal pain, nausea, vomiting * severe constipation * diarrhea, dark stools or bloody stools * any unanswered questions or concerns Call 911 if symptoms are severe. Please take good care of yourself. Call if you have any questions or problems. You can reach a [facility] hospitalist on duty at [facility] 24 hours a day by calling [phone]. My cell # is [phone]. Prescriptions: New duloxetine 30 mg capsule,delayed release(DR/EC) 30 mg PO UD Qty: 10 RF: 0 bisacodyl [Dulcolax (bisacodyl)] 5 mg tablet,delayed release (DR/EC) 10 mg PO DAILY PRN (Reason: constipation) Qty: 10 RF: 0 polyethylene glycol 3350 [Miralax] 17 gram Powder In Packet 17 g PO DAILY Qty: 1 RF: 0 Continued bupropion HCl 150 mg tablet sustained-release 12 hr 150 mg PO BID RF: 0 carbidopa-levodopa 25-100 mg tablet 1 tab PO TID RF: 0 primidone 50 mg tablet 50 mg PO BID RF: 0 atorvastatin 20 mg Tablet 20 mg PO DAILY RF: 0 aspirin [Aspir-81] 81 mg Tablet,Delayed Release (Dr/Ec) 81 mg PO DAILY RF: 0 alprazolam 0.25 mg Tablet 0.25 mg PO TID PRN (Reason: Anxiety) RF: 0 omeprazole 20 mg Tablet,Delayed Release (Dr/Ec) 20 mg PO BID RF: 0 Discontinued duloxetine 60 mg Capsule,Delayed Release(Dr/Ec) 60 mg PO DAILY RF: 0 Stand-Alone Forms: [facility]/Other Patient Handouts: Gastroparesis Discharge Orders: Discharge Order (Routine); Ordered 06/16/19 Ordered By: Jack Shook Admission Data Admit Date/Time: 06/08/19 20:01 Attending Provider: Jack Shook Admit Provider: Mario Hi Primary Care Provider: Ori Mendez Other Providers: Trent Acosta ; Mario Hi ; Alverto Pop Service: Medical
[2019-06-17] MEDS ORDERED: POLYETHYLENE (MIRALAX) 17 GM PACK PO SCH (09:00)
== END 2019-06-16 18:08 | disposition home or self-care (01) | DRG 74 ==
LOC: ED 16:11 → SUATTDRO 20:01 → 3W 20:01
DX: F41.8 Other specified anxiety disorders; K31.7 Polyp of stomach and duodenum; Z82.3 Family history of stroke; E86.0 Dehydration; K21.9 Gastro-esophageal reflux disease without esophagitis; E83.42 Hypomagnesemia; Z86.711 Personal history of pulmonary embolism; Z88.5 Allergy status to narcotic agent; Z79.82 Long term (current) use of aspirin; E87.6 Hypokalemia; K59.00 Constipation, unspecified; E11.43 Type 2 diabetes mellitus with diabetic autonomic (poly)neuropathy; G20 Parkinson's disease; I10 Essential (primary) hypertension

== ENCOUNTER 2019-08-21 13:10 | Inpatient (IN) ==
[2019-08-21] MEDS ORDERED: ONDANSETRON INJ 2 MG/ML 2 ML VIAL IV STA (13:33)
[2019-08-21] MEDS ORDERED: SODIUM CHLORIDE 0.9% 1000ML 1,000 ML IV SCH (13:45)
[2019-08-21 13:54] LABS: Basophils # (auto) 0.02 K/uL (0-0.2); Basophils % (auto) 0.3 %; Eosinophils # (auto) 0.05 K/uL (0-0.5); Eosinophils % (auto) 0.7 %; Hematocrit (blood only) 46.6 % (37-47); Hemoglobin 16.6 g/dL (12.0-16.0); Lymphocytes # (auto) 1.66 K/uL (1.2-3.4); Lymphocytes % (auto) 23.2 %; Mean Corpuscular Hemoglobin 32.4 pg (25-34); Mean Corpuscular Hgb Conc 35.6 g/dL (32-36); Mean Platelet Volume 10.7 fL (7.4-10.4); Monocytes # (auto) 0.57 K/uL (0.11-0.59); Neutrophils # (auto) 4.85 K/uL (1.4-6.5); Neutrophils % (auto) 67.8 %; Platelet Count 218 K/uL (130-400); RDW Coefficient of Variation 14.4 % (11.5-14.5); RDW Standard Deviation 48.4 fL (36.4-46.3); Red Blood Count 5.12 M/uL (4.2-5.4); White Blood Count 7.15 K/uL (4.8-10.8)
[2019-08-21 14:11] LABS: Albumin Level 4.1 gm/dl (3.4-5.0); BUN Creatinine Ratio 20.3 (10-20); Calcium 9.2 mg/dl (8.5-10.1); Creatinine Clr Calc Pharmacy 46.4 ml/min; Est GFR (African American) 70.4; Est GFR (Non-African American) 60.8; Potassium 3.7 mmol/L (3.5-5.1)
[2019-08-21 14:13] LABS: Albumin Globulin Ratio 1.4 (0.9-2); Bilirubin,Total 0.8 mg/dl (0.2-1); Globulin 2.9 gm/dl (2.5-4.0)
--- NOTE | 2019-08-21 14:29 | Ultrasound Report ---
US gallbladder HISTORY: 79 years-old Female ruq abd pain acute right upper quadrant abdominal pain COMPARISON: CT abdomen and pelvis 05/31/2019 TECHNIQUE: Multiple real-time sonographic images of the abdominal right upper quadrant were obtained assessing grayscale appearance and color flow FINDINGS: Moderate generalized pancreatic atrophy. Imaged liver is unremarkable. Trace gallbladder sludge. No c holelithiasis, gallbladder wall thickening or pericholecystic fluid. Sonographic Byrne sign not repo rted. Normal common bile duct, 4 mm. Unremarkable sonographic appearance of the right kidney. IMPRESSION: 1. Trace gallbladder sludge without cholelithiasis or sonographic evidence of acute cholecystitis. 2. No biliary ductal dilation. The above report was generated using voice recognition software. It may contain grammatical, syntax o r spelling errors. Electronically signed by: Naveed New M.D. 08/21/2019 2:27 PM
[2019-08-21] MEDS ORDERED: METOCLOPRAMIDE HCL INJ 5 MG/ML 2 ML VIAL IV ONE (15:13)
--- NOTE | 2019-08-21 16:06 | History & Physical Report ---
Date of Service August 21, 2019 Assessment & Plan (1) Intractable nausea and vomiting: (2) Chronic calculous cholecystitis: This is a 79-year-old female who has significant past medical history of T2DM, Parkinson's disease, HTN, GERD, chronic back pain, history of PE 30 years ago, recurrent major depression with anxiety who presents to [facility] ED secondary to persistent nausea for months. Pt with outpt HIDA Scan 07/26/19 with poor gallbladder EF of 9% concerning for chronic acalculous cholecystitis Scheduled for laparoscopic cholecystectomy on 08/[address] Cash She remained afebrile in ED, WBC WNL, no signs or symptoms of SIRS/infection Patient with persistent nausea/vomiting and not tolerating p.o. intake Admit to med/surg Consult general surgery Dr. Cain Placed on clear liquid diet, low-fat Treat supportively with IVF D5 1/2NS 50 cc/h IV antiemetics PRN follow up labs in a.m. SQ Heparin for dvt prophylaxis - will need to d/c prior to surgery Pt on ASA - will hold - no prior hx of cardiac event or CVA (3) Diabetes mellitus, type II: A1c 06/2019 6.2 accuchecks AC/HS novolog per protocol well controlled with diet (4) HTN (hypertension): Blood pressure elevated in ED History of hypertension may be secondary to anxiety Presently not on oral antihypertensives, monitor and treat accordingly (5) Parkinson disease: Continue carbidopa levodopa, primidone (6) Anxiety and depression: Continue Wellbutrin and as needed alprazolam Mood stable, but with mild anxiety (7) DVT prophylaxis: SQ heparin, SCD/teds Patient with history of PE approximately 30 years ago after being placed in, "traction for 5 days." Will need to stop prior to surgery Disposition: Admit to med/surg, case management consulted as patient does live alone Follow-up: PCP Dr. Mendez upon discharge Patient was seen and examined in collaboration with Dr. Acosta, please see addendum Started 08/22/2019 patient be under the care of Dr. Shook History of Present Illness Chief Complaint: Persistent nausea for months. Primary Care Provider: Ori Mendez MD This is a 79-year-old female who has significant past medical history of T2DM, Parkinson's disease, HTN, GERD, chronic back pain, history of PE 30 years ago, recurrent major depression with anxiety who presents to [facility] ED secondary to persistent nausea for months. She has been worked up in the outpatient setting with GI and general surgery. She had a HIDA scan done earlier this month which revealed EF less than 9% concerning for chronic acalculous cholecystitis. She is scheduled for a laparoscopic cholecystectomy on 08/23/2019 Dr. Cash. For the past several months she has been having significant nausea. She has lost 20 to 30 pounds since May. She has difficulty keeping down oral intake, including pills. Her appetite is otherwise been diminished. She lives alone at home in an apartment. Drove herself here today. She denies any fever, chills, sweats, lightheadedness, dizziness, syncope, chest pain, shortness of breath, palpitations, abdominal pain, hematemesis, diarrhea, melena, hematochezia. She feels overall she has had decreased urinary output secondary to poor intake and overall feels dehydrated. Denies any dysuria, hematuria, increased urgency or frequency with urination. She is very anxious at baseline. She also has resting tremor and lipsmacking tremor, which she says worsens with her anxiety. She does have a history of Parkinson's disease in which she takes Sinemet and primidone. She initially thought symptoms may be secondary to medications and stopped primidone x5 days. Symptoms persisted so then she restarted. She has been taking all her carbidopa levodopa intermittently without improvement of her symptoms. Allergies Allergy/AdvReac Type Severity Reaction Status Date / Time codeine Allergy Severe SEVERE Verified 08/21/19 14:07 HEADACHE, NAUSEA & VOMITING morphine Allergy Severe SEVERE Verified 08/21/19 14:07 HEADACHE, NAUSEA, & VOMITING pentazocine [From Talwin] Allergy Severe DECREASED Verified 08/21/19 14:07 MOTOR SKILL, SOB. Home Medications Home Medications Medication Instructions Recorded Confirmed Type alprazolam 0.25 mg PO TID PRN 10/14/18 08/21/19 History aspirin [Aspir-81] 81 mg PO QAM 10/14/18 08/21/19 History omeprazole 20 mg PO BID 10/14/18 08/21/19 History bupropion HCl 150 mg PO BID 05/31/19 08/21/19 History carbidopa-levodopa 1 tab PO TID 05/31/19 08/21/19 History primidone 50 mg PO BID 05/31/19 08/21/19 History polyethylene glycol 3350 [Miralax] 17 g PO DAILY #1 ea 06/16/19 08/21/19 Rx Past Med/Surg History Medical History Anxiety and depression (Chronic) HTN (hypertension) (Chronic) Dyslipidemia (Chronic) Parkinson disease (Chronic) Tremor (Chronic) Gastroesophageal reflux disease (Inactive) Chronic back pain Surgical History History of cervical spinal surgery (Chronic) History of lumbosacral spine surgery (Chronic) History of tubal ligation (Chronic) History of open reduction and internal fixation (ORIF) procedure RIGHT WRIST Hx of cataract surgery RIGHT AND LEFT Hx of tonsillectomy Family History Father , 51 Myocardial infarction Hypertension Social History Preferred Language: Divehi Communication Ability: Effective Mother Tester Required: No Beliefs That Will Affect Care: None marital status: Current Living Situation: Alone Other Information That Helps Us Care for You: No Feels Safe at Home: Yes Safety Concerns: Feels Safe At This Time Smoking Status: Never smoker Do You Dip or Chew Tobacco: No ; Second Hand Exposure: No ; Tobacco Cessation Education Requested by Patient: No Hx Alcohol Use: Yes Alcohol type: hard liquor Alcohol Intake Frequency: Rarely Hx Substance Use: No Review of Systems Review of Systems: All systems reviewed & are unremarkable except as noted in HPI & below Physical Exam Physical Exam: constitutional: WD/WN, elderly, female, appears anxious, vitals as above, NAD, sitting up in bed, pleasant, conversing easily Head: Normocephalic, Atraumatic Eyes: PERRL, conjunctivae normal, anicteric sclerae ENMT: external ear and nose normal, oropharynx with dry mucous membranes Neck: trachea midline, no thyromegaly normal visual inspection Respiratory: normal respiratory effort, lungs clear to auscultation, no wheeze, rales, rhonchi. Normal insp/exp effort, no accessory muscle use Cardiovascular: RRR, no murmur, no edema Vessels: no JVD or carotid bruit Chest: normal inspection of chest Abdomen: normal bowel sounds, soft, nontender, no hepatosplenomegaly Musculoskeletal: no cyanosis or clubbing, extremities motor strength 5/5 Skin: no rashes, warm and dry mild turgor Neurologic: + lip smacking tremor, pt very restless, PERRL, EOMI, accommodation nl, no face palsy, no dysarthria CN's II-XI intact bilaterally and moves all extremities Psychiatric: A+Ox3, euthymic affect Lymphatic: no cervical or axillary lymphadenopathy : deferred Results & Data Vital Signs (Past 12 Hours) Vital Signs Temp Pulse Resp BP Pulse Ox 08/21/19 14:30 75 17 154/119 H 100 08/21/19 14:00 78 24 136/85 08/21/19 13:37 103 H 16 129/87 08/21/19 13:16 36.4 C L 111 H 16 138/85 98 Laboratory Results Short CBC 08/21/19 Range/Units 13:45 WBC 7.15 (4.8-10.8) K/uL Hgb 16.6 H (12.0-16.0) g/dL Hct 46.6 (37-47) % Plt Count 218 (130-400) K/uL BMP 08/21/19 13:45 Sodium 142 Potassium 3.7 Chloride 106 Carbon Dioxide 28 BUN 18 Creatinine 0.89 Glucose 127 H Calcium 9.2 Liver Function 08/21/19 Range/Units 13:45 Total Bilirubin 0.8 (0.2-1) mg/dl AST 25 (15-37) U/L ALT 23 (12-78) U/L Alkaline Phosphatase 127 H (45-117) U/L Albumin 4.1 (3.4-5.0) gm/dl Diagnostic Findings Gallbladder U/S: IMPRESSION: 1. Trace gallbladder sludge without cholelithiasis or sonographic evidence of acute cholecystitis. 2. No biliary ductal dilation. Outpt HIDA SCAN NM: 07/21/19 IMPRESSION: Abnormal gallbladder emptying with CCK. Poor gallbladder ejection fraction: 9%. In the appropriate clinical setting, these findings suggest chronic acalculous cholecystitisin this patient without cholelithiasis on ultrasound. Medications Administered Short CBC 08/21/19 Range/Units 13:45 WBC 7.15 (4.8-10.8) K/uL Hgb 16.6 H (12.0-16.0) g/dL Hct 46.6 (37-47) % Plt Count 218 (130-400) K/uL BMP 08/21/19 13:45 Sodium 142 Potassium 3.7 Chloride 106 Carbon Dioxide 28 BUN 18 Creatinine 0.89 Glucose 127 H Calcium 9.2 Liver Function 08/21/19 Range/Units 13:45 Total Bilirubin 0.8 (0.2-1) mg/dl AST 25 (15-37) U/L ALT 23 (12-78) U/L Alkaline Phosphatase 127 H (45-117) U/L Albumin 4.1 (3.4-5.0) gm/dl Code Status & VTE Plan Code Status DNR - No intubation or CPR VTE Prophylaxis Plan VTE Prophylaxis will be ordered: Yes Supervising Physician Co-Signing Physician Notes I, Dr. Trent Acosta, have seen and examined the patient with physician assistant superintendent for curriculum and would like to comment that: On physical exam: General: alert and oriented Neuro/Psych: patient has involuntary movements of lower jaw which she attributes to Parkinson's Heart: regular rate, regular rhythm Lungs: clear to auscultation bilaterally Abdomen: soft, positive bowel sounds Extremities: no edema This is a 79 year old Female with Parkinson Disease and on physical exam has clear features of involuntary movements of lower jaw. She presents to the hospital for intractable nausea and vomiting with some current relief from vomiting but continues to have very bad nausea symptoms. She reports that symptoms of nausea and vomiting has been a problem for her since May 2018. She has been found in the past to have chronic acalculous cholecystitis based on recent outpatient HIDA Scan 07/26/19 with poor gallbladder function. On exam, patient localizes abdominal discomfort more to the left side, rather than right side where the gallbladder is. Patient expresses concerns whether a cholecystectomy is needed to relieve nausea and vomiting symptoms. At this time, hospitalist admits the patient to assist with temporary relief of symptoms with anti-emetics and IV fluids. Another possibility that patient's nausea and vomiting may be symptoms of Parkinson's disease versus medication side effects to treat Parkinson's. Patient recalls having multiple medical changes in the recent past. However, intervention to remove the gallbladder will rule out chronic acalculous cholecystitis as possible contribution to current symptoms. Will seek general surgery assessment agree with other assessment and plans of other health issues as documented by physician assistant superintendent for curriculum including management of hypertension and diabetes mellitus and depression with anxiety My colleague Dr. Shook will be taking over the care of the patient as the hospitalist starting on 08/22/19
[2019-08-21] MEDS ORDERED: POLYETHYLENE (MIRALAX) 17 GM PACK PO PRN (16:59)
[2019-08-21] MEDS ORDERED: CARBOHYDRATES FOR HYPOGLYCEMIA PO PRN (16:59)
[2019-08-21] MEDS ORDERED: GLUCAGON FOR INJ 1 MG VIAL SQ PRN (16:59)
[2019-08-21] MEDS ORDERED: DEXTROSE 50% 50 ML SYRINGE IV PRN (16:59)
[2019-08-21] MEDS ORDERED: MAGNESIUM HYDROXIDE SUSP 30 ML UDC PO PRN (16:59)
[2019-08-21] MEDS ORDERED: GLUCOSE 10 TABS/TUBE PO PRN (16:59)
[2019-08-21] MEDS ORDERED: ALUMINUM/MAGNESIUM SUSP 30 ML UDC PO PRN (16:59)
[2019-08-21] MEDS ORDERED: GLUCOSE 40% GEL 15 GM TUBE PO PRN (16:59)
[2019-08-21] MEDS ORDERED: ACETAMINOPHEN 325 MG TAB PO PRN (16:59)
[2019-08-21] MEDS: D5W AND 1/2NSS 1,000 ML IV SCH (17:09)
--- NOTE | 2019-08-21 17:19 | Emergency Department Note ---
Entered by Suman Abad acting as a scribe for History of Present Illness General Chief complaint: Referred by Doctor Stated complaint: VOMITING - NOTHING TO EAT OR DRINK Source: patient Mode of arrival: ambulatory Limitations: no limitations History of Present Illness Onset (ago): day(s) 5 Location: abdomen Severity: similar to prior episodes Pain Consistency: + constant Maximum Pain Intensity: 10 Quality: + other (episode) Associated symptoms: + denies other symptoms (cough, nasal discharge, chest pain ), + headaches and + other (burning while urinating ) The patient is a 79 year old female who presents to the Emergency Room with complaints of an episode of constant nausea that has been present for the last 5 days. The patient reports that she has been vomiting for the last five days. She has been unable to keep anything down. She notes that this is been going off and on for months. She has had an extensive work-up as an outpatient by GI and general surgery. The patient notes that she has headaches and burning with urination. The patient denies any cough, nasal discharge, or chest pain. The patient notes that she was seen recently in the ED by Dr. Cash and that she will be having a cholecystectomy this Friday. The patient reports that she has had four back surgeries and a tubal ligation. Nuc med hepatobiliary scan shows gallbladder with an EF of 9% Home Medications Home Medications Medication Instructions Recorded Confirmed Type alprazolam 0.25 mg PO TID PRN 10/14/18 08/21/19 History aspirin [Aspir-81] 81 mg PO QAM 10/14/18 08/21/19 History omeprazole 20 mg PO BID 10/14/18 08/21/19 History bupropion HCl 150 mg PO BID 05/31/19 08/21/19 History carbidopa-levodopa 1 tab PO TID 05/31/19 08/21/19 History primidone 50 mg PO BID 05/31/19 08/21/19 History polyethylene glycol 3350 [Miralax] 17 g PO DAILY #1 ea 06/16/19 08/21/19 Rx Allergies Allergy/AdvReac Type Severity Reaction Status Date / Time codeine Allergy Severe SEVERE Verified 08/21/19 14:07 HEADACHE, NAUSEA & VOMITING morphine Allergy Severe SEVERE Verified 08/21/19 14:07 HEADACHE, NAUSEA, & VOMITING pentazocine [From Talwin] Allergy Severe DECREASED Verified 08/21/19 14:07 MOTOR SKILL, SOB. Past Med/Surg History Medical History Anxiety and depression (Chronic) HTN (hypertension) (Chronic) Dyslipidemia (Chronic) Parkinson disease (Chronic) Tremor (Chronic) Gastroesophageal reflux disease (Inactive) Chronic back pain Surgical History History of cervical spinal surgery (Chronic) History of lumbosacral spine surgery (Chronic) History of tubal ligation (Chronic) History of open reduction and internal fixation (ORIF) procedure RIGHT WRIST Hx of cataract surgery RIGHT AND LEFT Hx of tonsillectomy Family History Father , 51 Myocardial infarction Hypertension Social History Preferred Language: Bangladeshi Communication Ability: Effective [employer] Technician Required: No Beliefs That Will Affect Care: None marital status: Current Living Situation: Alone Other Information That Helps Us Care for You: No Feels Safe at Home: Yes Safety Concerns: Feels Safe At This Time Smoking Status: Never smoker Do You Dip or Chew Tobacco: No ; Second Hand Exposure: No ; Tobacco Cessation Education Requested by Patient: No Hx Alcohol Use: Yes Alcohol type: hard liquor Alcohol Intake Frequency: Rarely Hx Substance Use: No Review of Systems See HPI for pertinent positives & negatives. and A total of 10 systems reviewed and were otherwise negative Physical Exam Vital Signs Vital Signs - 24 hr 08/21/19 13:16 08/21/19 13:37 08/21/19 14:00 Temperature 36.4 C L Temperature Source Oral Sepsis Recent Fever Within 48 Hours No Sepsis Action Taken by Nursing No Action Required Pulse Rate 111 H 103 H 78 Pulse Rate from SpO2 Sensor Pulse Rhythm Regular Pulse Strength Normal Respiratory Rate 16 16 24 Respiratory Effort / Characteristics Non-Labored Respiratory Depth Normal Respiratory Pattern Regular Blood Pressure 138/85 129/87 136/85 Blood Pressure Mean 102 101 102 Blood Pressure Position Sitting Pulse Oximetry 98 Oxygen Delivery Method Room Air 08/21/19 14:30 08/21/19 15:00 08/21/19 15:30 Temperature Temperature Source Sepsis Recent Fever Within 48 Hours Sepsis Action Taken by Nursing Pulse Rate 75 81 80 Pulse Rate from SpO2 Sensor 75 81 80 Pulse Rhythm Pulse Strength Respiratory Rate 17 23 23 Respiratory Effort / Characteristics Respiratory Depth Respiratory Pattern Blood Pressure 154/119 H 144/80 H 166/96 H Blood Pressure Mean 130 101 119 Blood Pressure Position Pulse Oximetry 100 98 99 Oxygen Delivery Method GENERAL: laying in bed, no acute distress, non toxic, holding RUQ EYE EXAM: normal conjunctiva OROPHARYNX: no exudate, no erythema, lips, buccal mucosa, and tongue normal and mucous membranes are moist NECK: supple, no nuchal rigidity, no adenopathy, non-tender LUNGS: Clear to auscultation. Normal chest wall mechanics HEART: S1 normal and S2 normal ABDOMEN: Minimal tenderness to palpation in the epigastric region, positive bowel sounds, no rebound or guarding BACK: Back is symmetrical on inspection and there is no deformity, no midline tenderness, no CVA tenderness. SKIN: no rashes and no bruising UPPER EXTREMITIES: upper extremities are grossly normal. LOWER EXTREMITIES: No pitting edema. NEURO EXAM: Normal sensorium, cranial nerves II-XII grossly intact, normal speech, no gross weakness of arms, no gross weakness of legs. Course ED COURSE: Vital signs were reviewed and showed hypertensive situationally. The patients medical record was reviewed The above diagnostic studies were performed and reviewed. ED treatments and interventions as stated above. 1329: The patient was evaluated in room C06 . A complete history and physical examination was performed. 1622: Upon reevaluation, the patient is resting comfortably.I discussed my findings with the patient and she understands and agrees with the treatment plan. Based on the patients age, coexisting illnesses, exam and lab findings the decision to treat as an inpatient was made. The patient remained stable while under my care. The patient will be evaluated for further management. Administered Medications Dextrose/Sodium Chloride (D5w And 1/2nss) 1,000 mls @ 50 mls/hr IV .Q20H LINDSAY Stop: 09/20/19 15:59 Last Admin: 08/21/19 17:09 Dose: 50 mls/hr Documented by: [id number] Discontinued Medications Sodium Chloride (Nss 1000ml) 1,000 mls @ 999 mls/hr IV .Q1H1M LINDSAY Stop: 08/21/19 14:45 Last Infusion: 08/21/19 14:57 Dose: 0 mls/hr Documented by: [id number] Admin: 08/21/19 13:51 Dose: 999 mls/hr Documented by: [id number] Metoclopramide HCl (Reglan) 5 mg IV ONE ONE Stop: 08/21/19 15:14 Last Admin: 08/21/19 15:29 Dose: 5 mg Documented by: [id number] Ondansetron HCl (Zofran) 4 mg IV NOW STA Stop: 08/21/19 13:34 Last Admin: 08/21/19 14:57 Dose: Not Given Documented by: [id number] Medical Decision Making Differential Diagnosis Differential diagnoses includes but is not limited to gastritis, peptic ulcer disease, GERD, gallbladder disease, pancreatitis, small bowel obstruction, acute coronary syndrome, pericarditis, ischemic bowel, irritable bowel disease, irritable bowel syndrome, appendicitis, diverticulitis, malignancy, hernia, urinary tract infection, torsion, /ectopic (if female), perforation, trauma, infectious. Medical Records Attestation: I reviewed the patient's medical records. Laboratory Data Attestation: I reviewed the patient's lab results. Result diagrams: 08/21/19 13:45 08/21/19 13:45 Lab Results 08/21/19 08/21/19 Range/Units 13:45 13:45 WBC 7.15 (4.8-10.8) K/uL RBC 5.12 (4.2-5.4) M/uL Hgb 16.6 H (12.0-16.0) g/dL Hct 46.6 (37-47) % MCV 91.0 (80-100) fL MCH 32.4 (25-34) pg MCHC 35.6 (32-36) g/dL RDW Std Deviation 48.4 H (36.4-46.3) fL RDW Coeff of Yareli 14.4 (11.5-14.5) % Plt Count 218 (130-400) K/uL MPV 10.7 H (7.4-10.4) fL Immature Gran % (Auto) 0.0 % Neut % (Auto) 67.8 % Lymph % (Auto) 23.2 % Lewis % (Auto) 8.0 % Eos % (Auto) 0.7 % Baso % (Auto) 0.3 % Immature Gran # (Auto) 0.00 (0.00-0.02) K/uL Neut # (Auto) 4.85 (1.4-6.5) K/uL Lymph # (Auto) 1.66 (1.2-3.4) K/uL Lewis # (Auto) 0.57 (0.11-0.59) K/uL Eos # (Auto) 0.05 (0-0.5) K/uL Baso # (Auto) 0.02 (0-0.2) K/uL Sodium 142 (136-145) mmol/L Potassium 3.7 (3.5-5.1) mmol/L Chloride 106 (98-107) mmol/L Carbon Dioxide 28 (21-32) mmol/L Anion Gap 8.0 (3-11) BUN 18 (7-18) mg/dl Creatinine 0.89 (0.6-1.2) mg/dl Est Cr Clr Drug Dosing 46.4 ml/min Est GFR ( Amer) 70.4 Est GFR (Non-Af Amer) 60.8 BUN/Creatinine Ratio 20.3 H (10-20) Glucose 127 H (70-99) mg/dl Calcium 9.2 (8.5-10.1) mg/dl Total Bilirubin 0.8 (0.2-1) mg/dl AST 25 (15-37) U/L ALT 23 (12-78) U/L Alkaline Phosphatase 127 H (45-117) U/L Total Protein 7.0 (6.4-8.2) gm/dl Albumin 4.1 (3.4-5.0) gm/dl Globulin 2.9 (2.5-4.0) gm/dl Albumin/Globulin Ratio 1.4 (0.9-2) Lipase 76 (73-393) U/L Imaging Data Radiologist's Impression: Radiology results as stated below per my review and the radiologist's interpretation: US gallbladder HISTORY: 79 years-old Female ruq abd pain acute right upper quadrant abdominal pain COMPARISON: CT abdomen and pelvis 05/31/2019 TECHNIQUE: Multiple real-time sonographic images of the abdominal right upper quadrant were obtained assessing grayscale appearance and color flow FINDINGS: Moderate generalized pancreatic atrophy. Imaged liver is unremarkable. Trace gallbladder sludge. No cholelithiasis, gallbladder wall thickening or pericholecystic fluid. Sonographic Byrne sign not reported. Normal common bile duct, 4 mm. Unremarkable sonographic appearance of the right kidney. IMPRESSION: 1. Trace gallbladder sludge without cholelithiasis or sonographic evidence of acute cholecystitis. 2. No biliary ductal dilation. The above report was generated using voice recognition software. It may contain grammatical, syntax or spelling errors. Electronically signed by: Naveed New M.D. 08/21/2019 2:27 PM Blood Pressure Blood Pressure Findings: Elevated blood pressure Blood Pressure Disposition: further management by hospitalist VITALY Narrative Patient is an 79-year-old female with a past medical history of spinal surgery hyperlipidemia and Parkinson's who presents the ER for persistent nausea vomiting associated with mild epigastric pain. Patient has had extensive work- up as an outpatient by general surgery and GI and was diagnosed with acalculous chronic cholecystitis. HIDA scan shows an EF of 9%. IV was established blood w ork was obtained and showed no significant leukocytosis or anemia. BMP was unremarkable with exception of an elevated BUN. LFTs bilirubin and lipase was unremarkable. Patient was given IV fluids and IV Reglan. Outpatient records were reviewed by Pinstant Karma. Ultrasound was unremarkable. Patient was discussed with general surgery and the hospitalist for observation secondary to chronic acute cholecystitis and nausea vomiting. Impression & Plan Abdominal pain, Parkinson disease, Chronic cholecystitis, Intractable nausea and vomiting Discharge Plan Visit Data *Final* Discharge Date/Time: 08/21/19 16:39 Chief Complaint: Referred by Doctor Stated Complaint: VOMITING - NOTHING TO EAT OR DRINK ED Provider: Bernabe Sparrow Discharge Problem: Abdominal pain, Parkinson disease, Chronic cholecystitis, Intractable nausea and vomiting Patient Disposition: Admitted As Inpatient Discharge Instructions Interventions: ED Discharge Assessment Last Done: 08/21/19 16:39 Discharge Problem: Abdominal pain Qualifiers: Abdominal location: unspecified location Qualified Code(s): R10.9 - Unspecified abdominal pain The scribe's documentation has been prepared under my direction and personally reviewed by me in its entirety. I confirm that the note above accurately reflects all work, treatment, procedures, and medical decision making performed by me.
--- NOTE | 2019-08-21 18:12 | Surgery Consultation ---
Date of Consultation August 21, 2019 Assessment & Plan (1) Intractable nausea and vomiting: This patient has intractable nausea and vomiting with sludge in her gallbladder and a gallbladder ejection fraction that was low. The intractable nausea vomiting is been attributed to that. She has no abdominal pain. She does have a history of chronic constipation. She is scheduled for a laparoscopic cholecystectomy on Friday and will continue with that plan. She has no evidence of acute cholecystitis by exam. She has no peritonitis. History of Present Illness Reason for Consultation: Intractable nausea and vomiting Requesting Physician: Trent Acosta MD Attending Physician: Trent Acosta MD History of Present Illness I been asked by Dr. Acosta to see this 79-year-old female who is scheduled for cholecystectomy on Friday. The patient saw Dr. Cash in the office for an evaluation. For the last at least 14 months she has been having vomiting and nausea. It has gotten to a point where if she eats anything at all she develops vomiting. She states that it "just comes right back up" she has no abdominal pain whatsoever. She has not had hematemesis. She had an EGD and stated that there were no severe findings. She has difficulty moving her bowels but that borrego s always been the case. She takes MiraLAX and Dulcolax when she thinks it is necessary. She denies melena and hematochezia. She has not had a colonoscopy but stated that she would not agree to have one. She underwent an ultrasound in the emergency room that showed sludge but no evidence of acute cholecystitis. She had a HIDA scan with gallbladder ejection fraction that was below normal levels. Allergies Allergy/AdvReac Type Severity Reaction Status Date / Time codeine Allergy Severe SEVERE Verified 08/21/19 14:07 HEADACHE, NAUSEA & VOMITING morphine Allergy Severe SEVERE Verified 08/21/19 14:07 HEADACHE, NAUSEA, & VOMITING pentazocine [From Talwin] Allergy Severe DECREASED Verified 08/21/19 14:07 MOTOR SKILL, SOB. Home Medications Home Medications Medication Instructions Recorded Confirmed Type alprazolam 0.25 mg PO TID PRN 10/14/18 08/21/19 History aspirin [Aspir-81] 81 mg PO QAM 10/14/18 08/21/19 History omeprazole 20 mg PO BID 10/14/18 08/21/19 History bupropion HCl 150 mg PO BID 05/31/19 08/21/19 History carbidopa-levodopa 1 tab PO TID 05/31/19 08/21/19 History primidone 50 mg PO BID 05/31/19 08/21/19 History polyethylene glycol 3350 [Miralax] 17 g PO DAILY #1 ea 06/16/19 08/21/19 Rx Patient History Medical History Anxiety and depression (Chronic) HTN (hypertension) (Chronic) Dyslipidemia (Chronic) Parkinson disease (Chronic) Tremor (Chronic) Gastroesophageal reflux disease (Inactive) Chronic back pain Surgical History History of cervical spinal surgery (Chronic) X 2 History of lumbosacral spine surgery (Chronic) X2 History of tubal ligation (Chronic) History of open reduction and internal fixation (ORIF) procedure RIGHT WRIST Hx of cataract surgery RIGHT AND LEFT Hx of tonsillectomy Family History Father , 51 Myocardial infarction Hypertension Social History Preferred Language: Swedish Communication Ability: Effective Test Director Required: No Beliefs That Will Affect Care: None marital status: Current Living Situation: Alone Other Information That Helps Us Care for You: No Feels Safe at Home: Yes Safety Concerns: Feels Safe At This Time Smoking Status: Never smoker Do You Dip or Chew Tobacco: No ; Second Hand Exposure: No ; Tobacco Cessation Education Requested by Patient: No Hx Alcohol Use: Yes Alcohol type: hard liquor Alcohol Intake Frequency: Rarely Hx Substance Use: No Physical Exam Constitutional: no acute distress Neck: trachea midline Respiratory: normal respiratory effort, lungs clear to auscultation Cardiovascular: Rate/Rhythm: regular rate and regular rhythm Gastrointestinal (Abdomen): Inspection/Auscultation: abdomen not distended Percussion/Palpation: abdomen soft; abdomen nontender and no abdominal mass Skin: no rashes, warm and dry Lymphatic: no cervical lymphadenopathy Results & Data Vital Signs (Past 12 Hours) Vital Signs Temp Pulse Resp BP Pulse Ox 08/21/19 16:00 86 21 145/86 H 96 08/21/19 15:30 80 23 166/96 H 99 08/21/19 15:00 81 23 144/80 H 98 08/21/19 14:30 75 17 154/119 H 100 08/21/19 14:00 78 24 136/85 08/21/19 13:37 103 H 16 129/87 08/21/19 13:16 36.4 C L 111 H 16 138/85 98 Laboratory Results 08/21/19 08/21/19 Range/Units 13:45 13:45 WBC 7.15 (4.8-10.8) K/uL RBC 5.12 (4.2-5.4) M/uL Hgb 16.6 H (12.0-16.0) g/dL Hct 46.6 (37-47) % MCV 91.0 (80-100) fL MCH 32.4 (25-34) pg MCHC 35.6 (32-36) g/dL RDW Std Deviation 48.4 H (36.4-46.3) fL RDW Coeff of Yareli 14.4 (11.5-14.5) % Plt Count 218 (130-400) K/uL MPV 10.7 H (7.4-10.4) fL Immature Gran % (Auto) 0.0 % Neut % (Auto) 67.8 % Lymph % (Auto) 23.2 % [place] % (Auto) 8.0 % Eos % (Auto) 0.7 % Baso % (Auto) 0.3 % Immature Gran # (Auto) 0.00 (0.00-0.02) K/uL Neut # (Auto) 4.85 (1.4-6.5) K/uL Lymph # (Auto) 1.66 (1.2-3.4) K/uL [place] # (Auto) 0.57 (0.11-0.59) K/uL Eos # (Auto) 0.05 (0-0.5) K/uL Baso # (Auto) 0.02 (0-0.2) K/uL Sodium 142 (136-145) mmol/L Potassium 3.7 (3.5-5.1) mmol/L Chloride 106 (98-107) mmol/L Carbon Dioxide 28 (21-32) mmol/L Anion Gap 8.0 (3-11) BUN 18 (7-18) mg/dl Creatinine 0.89 (0.6-1.2) mg/dl Est Cr Clr Drug Dosing 46.4 ml/min Est GFR ( Amer) 70.4 Est GFR (Non-Af Amer) 60.8 BUN/Creatinine Ratio 20.3 H (10-20) Glucose 127 H (70-99) mg/dl Calcium 9.2 (8.5-10.1) mg/dl Total Bilirubin 0.8 (0.2-1) mg/dl AST 25 (15-37) U/L ALT 23 (12-78) U/L Alkaline Phosphatase 127 H (45-117) U/L Total Protein 7.0 (6.4-8.2) gm/dl Albumin 4.1 (3.4-5.0) gm/dl Globulin 2.9 (2.5-4.0) gm/dl Albumin/Globulin Ratio 1.4 (0.9-2) Lipase 76 (73-393) U/L Diagnostic Findings US gallbladder HISTORY: 79 years-old Female ruq abd pain acute right upper quadrant abdominal pain COMPARISON: CT abdomen and pelvis 05/31/2019 TECHNIQUE: Multiple real-time sonographic images of the abdominal right upper quadrant were obtained assessing grayscale appearance and color flow FINDINGS: Moderate generalized pancreatic atrophy. Imaged liver is unremarkable. Trace gallbladder sludge. No cholelithiasis, gallbladder wall thickening or pericholecystic fluid. Sonographic Byrne sign not reported. Normal common bile duct, 4 mm. Unremarkable sonographic appearance of the right kidney. IMPRESSION: 1. Trace gallbladder sludge without cholelithiasis or sonographic evidence of acute cholecystitis. 2. No biliary ductal dilation.
[2019-08-21] MEDS: INSULIN ASPART 100 UNITS/ML 3 ML PEN SC SCH ×2 (18:42→21:21)
[2019-08-21 20:16] LABS: Appearance Urine Cloudy (Clear); Bacteria Urine Automated Negative (Negative); Blood Urine Negative (Negative); Color Urine Dark Yellow; Epithelial Cell Urine Auto >30 /lpf (0-5); Glucose Urine UA Negative (Negative); Leukocyte Esterase Urine 2+ (Negative); Nitrite Urine Negative (Negative); Protein Urine Negative (Negative); RBC Urine Automated 0-4 /hpf (0-4); Specific Gravity Urine 1.021 (1.000-1.030); Urobilinogen Urine Negative (Negative)
[2019-08-21 20:20] LABS: Bilirubin Urine Negative (Negative); Ictotest Urine Negative (Negative)
[2019-08-21 20:24] LABS: Ketones Urine 3+ (Negative)
[2019-08-21 20:42] LABS: Mucus Urine Present (None Prsent)
[2019-08-21] MEDS: CARBIDOPA/LEVODOPA 25/100MG TAB PO SCH (20:44)
[2019-08-21] MEDS: PANTOprazole 40 MG TAB PO SCH (20:44)
[2019-08-21] MEDS: PRIMIDONE 50 MG TAB PO SCH (20:44)
[2019-08-21] MEDS: BuPROPion SR 150 MG TABCR PO SCH (20:45)
[2019-08-21] MEDS: HEPARIN SOD 5,000 UNIT/0.5 ML VIAL SQ SCH (21:23)
[2019-08-21] MEDS: cefTRIAXone SODIUM 1,000 MG in DEXTROSE 5% 50 ML IV SCH (22:00)
[2019-08-21] MEDS: ONDANSETRON INJ 2 MG/ML 2 ML VIAL IV PRN (22:49)
[2019-08-21] MEDS: ALPRAZolam 0.25 MG TABLET PO PRN (22:50)
[2019-08-22 05:53] LABS: Basophils # (auto) 0.03 K/uL (0-0.2); Basophils % (auto) 0.6 %; Eosinophils # (auto) 0.05 K/uL (0-0.5); Hematocrit (blood only) 41.2 % (37-47); Hemoglobin 14.2 g/dL (12.0-16.0); Immature Granulocytes # (auto) 0.01 K/uL (0.00-0.02); Immature Granulocytes % (auto) 0.2 %; Lymphocytes # (auto) 1.75 K/uL (1.2-3.4); Lymphocytes % (auto) 35.5 %; Mean Corpuscular Hemoglobin 31.9 pg (25-34); Mean Corpuscular Hgb Conc 34.5 g/dL (32-36); Mean Corpuscular Volume 92.6 fL (80-100); Mean Platelet Volume 10.9 fL (7.4-10.4); Monocytes # (auto) 0.48 K/uL (0.11-0.59); Monocytes % (auto) 9.7 %; Neutrophils # (auto) 2.61 K/uL (1.4-6.5); Platelet Count 174 K/uL (130-400); RDW Coefficient of Variation 14.6 % (11.5-14.5); RDW Standard Deviation 49.3 fL (36.4-46.3); Red Blood Count 4.45 M/uL (4.2-5.4); White Blood Count 4.93 K/uL (4.8-10.8)
[2019-08-22] MEDS: HEPARIN SOD 5,000 UNIT/0.5 ML VIAL SQ SCH (06:10)
[2019-08-22 06:28] LABS: Albumin Globulin Ratio 1.4 (0.9-2); Albumin Level 3.4 gm/dl (3.4-5.0); BUN Creatinine Ratio 20.8 (10-20); Bilirubin,Total 0.5 mg/dl (0.2-1); Calcium 8.4 mg/dl (8.5-10.1); Creatinine Clr Calc Pharmacy 71.2 ml/min; Est GFR (African American) 100.2; Est GFR (Non-African American) 86.4; Globulin 2.4 gm/dl (2.5-4.0); Potassium 3.3 mmol/L (3.5-5.1); Total Protein 5.8 gm/dl (6.4-8.2)
[2019-08-22 06:38] LABS: INR 1.2 (0.9-1.1); Partial Thromboplastin Ratio 0.9; Prothrombin Time 11.8 Seconds (9.0-12.0)
[2019-08-22] MEDS: CARBIDOPA/LEVODOPA 25/100MG TAB PO SCH ×3 (09:00→20:11)
[2019-08-22] MEDS: PANTOprazole 40 MG TAB PO SCH ×2 (09:00→21:17)
[2019-08-22] MEDS: BuPROPion SR 150 MG TABCR PO SCH ×2 (09:00→20:12)
[2019-08-22] MEDS: PRIMIDONE 50 MG TAB PO SCH ×2 (09:01→20:12)
[2019-08-22] MEDS: POLYETHYLENE (MIRALAX) 17 GM PACK PO SCH (09:01)
[2019-08-22] MEDS: cefTRIAXone SODIUM 1,000 MG in DEXTROSE 5% 50 ML IV SCH (09:01)
[2019-08-22] MEDS: INSULIN ASPART 100 UNITS/ML 3 ML PEN SC SCH ×4 (09:03→20:10)
[2019-08-22] MEDS ORDERED: BISACODYL 10 MG SUPP PR ONE (09:14)
--- NOTE | 2019-08-22 09:14 | Surgery Progress Note ---
Date of Service August 22, 2019 Assessment & Plan (1) Intractable nausea and vomiting: Patient is scheduled for laparoscopic cholecystectomy tomorrow. Would proceed as scheduled Will try suppository to see if we can induce a bowel movement No evidence of peritonitis or acute cholecystitis Subjective Still with nausea and vomited supper last night No abdominal pain Has not had bowel movement for about 5 to 6 days Physical Exam Gastrointestinal (Abdomen): Inspection/Auscultation: normal bowel sounds Percussion/Palpation: abdomen soft; abdomen nontender Results & Data Vital Signs (Past 12 Hours) Vital Signs Temp Pulse Resp BP Pulse Ox 08/22/19 07:24 36.7 C 75 20 157/91 H 98 08/21/19 23:32 153/73 H 08/21/19 23:15 36.4 C L 84 18 161/84 H 96 Laboratory Results 08/22/19 08/22/19 08/22/19 Range/Units 08:14 05:16 05:16 WBC (4.8-10.8) K/uL RBC (4.2-5.4) M/uL Hgb (12.0-16.0) g/dL Hct (37-47) % MCV (80-100) fL MCH (25-34) pg MCHC (32-36) g/dL RDW Std Deviation (36.4-46.3) fL RDW Coeff of Yareli (11.5-14.5) % Plt Count (130-400) K/uL MPV (7.4-10.4) fL Immature Gran % (Auto) % Neut % (Auto) % Lymph % (Auto) % [place] % (Auto) % Eos % (Auto) % Baso % (Auto) % Immature Gran # (Auto) (0.00-0.02) K/uL Neut # (Auto) (1.4-6.5) K/uL Lymph # (Auto) (1.2-3.4) K/uL [place] # (Auto) (0.11-0.59) K/uL Eos # (Auto) (0-0.5) K/uL Baso # (Auto) (0-0.2) K/uL PT 11.8 (9.0-12.0) Seconds INR 1.2 H (0.9-1.1) APTT 25.0 (21.0-31.0) Seconds PTT Ratio 0.9 Sodium 144 (136-145) mmol/L Potassium 3.3 L (3.5-5.1) mmol/L Chloride 109 H (98-107) mmol/L Carbon Dioxide 28 (21-32) mmol/L Anion Gap 7.0 (3-11) BUN 12 (7-18) mg/dl Creatinine 0.58 L D (0.6-1.2) mg/dl Est Cr Clr Drug Dosing 71.2 ml/min Est GFR ( Amer) 100.2 Est GFR (Non-Af Amer) 86.4 BUN/Creatinine Ratio 20.8 H (10-20) Glucose 107 H (70-99) mg/dl POC Glucose 96 (70-99) Calcium 8.4 L (8.5-10.1) mg/dl Total Bilirubin 0.5 (0.2-1) mg/dl AST 21 (15-37) U/L ALT 11 L (12-78) U/L Alkaline Phosphatase 107 (45-117) U/L Total Protein 5.8 L (6.4-8.2) gm/dl Albumin 3.4 (3.4-5.0) gm/dl Globulin 2.4 L (2.5-4.0) gm/dl Albumin/Globulin Ratio 1.4 (0.9-2) Lipase (73-393) U/L Urine Color Urine Appearance (Clear) Urine pH (4.5-7.5) Ur Specific [place] (1.000-1.030) Urine Protein (Negative) Urine Glucose (UA) (Negative) Urine Ketones (Negative) Urine Blood (Negative) Urine Nitrite (Negative) Urine Bilirubin (Negative) Urine Urobilinogen (Negative) Ur Leukocyte Esterase (Negative) Urine WBC (Auto) (0-5) /hpf Urine RBC (Auto) (0-4) /hpf U Hyaline Cast (Auto) (0-5) /lpf U Epithel Cells (Auto) (0-5) /lpf Urine Bacteria (Auto) (Negative) Urine Mucus (None Prsent) 08/22/19 08/21/19 08/21/19 Range/Units 05:16 20:56 20:00 WBC 4.93 (4.8-10.8) K/uL RBC 4.45 (4.2-5.4) M/uL Hgb 14.2 (12.0-16.0) g/dL Hct 41.2 (37-47) % MCV 92.6 (80-100) fL MCH 31.9 (25-34) pg MCHC 34.5 (32-36) g/dL RDW Std Deviation 49.3 H (36.4-46.3) fL RDW Coeff of Yareli 14.6 H (11.5-14.5) % Plt Count 174 (130-400) K/uL MPV 10.9 H (7.4-10.4) fL Immature Gran % (Auto) 0.2 % Neut % (Auto) 53.0 % Lymph % (Auto) 35.5 % [place] % (Auto) 9.7 % Eos % (Auto) 1.0 % Baso % (Auto) 0.6 % Immature Gran # (Auto) 0.01 (0.00-0.02) K/uL Neut # (Auto) 2.61 (1.4-6.5) K/uL Lymph # (Auto) 1.75 (1.2-3.4) K/uL [place] # (Auto) 0.48 (0.11-0.59) K/uL Eos # (Auto) 0.05 (0-0.5) K/uL Baso # (Auto) 0.03 (0-0.2) K/uL PT (9.0-12.0) Seconds INR (0.9-1.1) APTT (21.0-31.0) Seconds PTT Ratio Sodium (136-145) mmol/L Potassium (3.5-5.1) mmol/L Chloride (98-107) mmol/L Carbon Dioxide (21-32) mmol/L Anion Gap (3-11) BUN (7-18) mg/dl Creatinine (0.6-1.2) mg/dl Est Cr Clr Drug Dosing ml/min Est GFR ( Amer) Est GFR (Non-Af Amer) BUN/Creatinine Ratio (10-20) Glucose (70-99) mg/dl POC Glucose 85 (70-99) Calcium (8.5-10.1) mg/dl Total Bilirubin (0.2-1) mg/dl AST (15-37) U/L ALT (12-78) U/L Alkaline Phosphatase (45-117) U/L Total Protein (6.4-8.2) gm/dl Albumin (3.4-5.0) gm/dl Globulin (2.5-4.0) gm/dl Albumin/Globulin Ratio (0.9-2) Lipase (73-393) U/L Urine Color Dark Yellow Urine Appearance Cloudy A (Clear) Urine pH 6.0 (4.5-7.5) Ur Specific [place] 1.021 (1.000-1.030) Urine Protein Negative (Negative) Urine Glucose (UA) Negative (Negative) Urine Ketones 3+ H (Negative) Urine Blood Negative (Negative) Urine Nitrite Negative (Negative) Urine Bilirubin Negative (Negative) Urine Urobilinogen Negative (Negative) Ur Leukocyte Esterase 2+ H (Negative) Urine WBC (Auto) 10-30 H (0-5) /hpf Urine RBC (Auto) 0-4 (0-4) /hpf U Hyaline Cast (Auto) 1-5 (0-5) /lpf U Epithel Cells (Auto) >30 H (0-5) /lpf Urine Bacteria (Auto) Negative (Negative) Urine Mucus Present A (None Prsent) 08/21/19 08/21/19 08/21/19 Range/Units 17:40 17:29 17:26 WBC (4.8-10.8) K/uL RBC (4.2-5.4) M/uL Hgb (12.0-16.0) g/dL Hct (37-47) % MCV (80-100) fL MCH (25-34) pg MCHC (32-36) g/dL RDW Std Deviation (36.4-46.3) fL RDW Coeff of Yareli (11.5-14.5) % Plt Count (130-400) K/uL MPV (7.4-10.4) fL Immature Gran % (Auto) % Neut % (Auto) % Lymph % (Auto) % [place] % (Auto) % Eos % (Auto) % Baso % (Auto) % Immature Gran # (Auto) (0.00-0.02) K/uL Neut # (Auto) (1.4-6.5) K/uL Lymph # (Auto) (1.2-3.4) K/uL [place] # (Auto) (0.11-0.59) K/uL Eos # (Auto) (0-0.5) K/uL Baso # (Auto) (0-0.2) K/uL PT (9.0-12.0) Seconds INR (0.9-1.1) APTT (21.0-31.0) Seconds PTT Ratio Sodium (136-145) mmol/L Potassium (3.5-5.1) mmol/L Chloride (98-107) mmol/L Carbon Dioxide (21-32) mmol/L Anion Gap (3-11) BUN (7-18) mg/dl Creatinine (0.6-1.2) mg/dl Est Cr Clr Drug Dosing ml/min Est GFR ( Amer) Est GFR (Non-Af Amer) BUN/Creatinine Ratio (10-20) Glucose (70-99) mg/dl POC Glucose 126 H 63 L* 68 L* (70-99) Calcium (8.5-10.1) mg/dl Total Bilirubin (0.2-1) mg/dl AST (15-37) U/L ALT (12-78) U/L Alkaline Phosphatase (45-117) U/L Total Protein (6.4-8.2) gm/dl Albumin (3.4-5.0) gm/dl Globulin (2.5-4.0) gm/dl Albumin/Globulin Ratio (0.9-2) Lipase (73-393) U/L Urine Color Urine Appearance (Clear) Urine pH (4.5-7.5) Ur Specific [place] (1.000-1.030) Urine Protein (Negative) Urine Glucose (UA) (Negative) Urine Ketones (Negative) Urine Blood (Negative) Urine Nitrite (Negative) Urine Bilirubin (Negative) Urine Urobilinogen (Negative) Ur Leukocyte Esterase (Negative) Urine WBC (Auto) (0-5) /hpf Urine RBC (Auto) (0-4) /hpf U Hyaline Cast (Auto) (0-5) /lpf U Epithel Cells (Auto) (0-5) /lpf Urine Bacteria (Auto) (Negative) Urine Mucus (None Prsent) 08/21/19 08/21/19 Range/Units 13:45 13:45 WBC 7.15 (4.8-10.8) K/uL RBC 5.12 (4.2-5.4) M/uL Hgb 16.6 H (12.0-16.0) g/dL Hct 46.6 (37-47) % MCV 91.0 (80-100) fL MCH 32.4 (25-34) pg MCHC 35.6 (32-36) g/dL RDW Std Deviation 48.4 H (36.4-46.3) fL RDW Coeff of Yareli 14.4 (11.5-14.5) % Plt Count 218 (130-400) K/uL MPV 10.7 H (7.4-10.4) fL Immature Gran % (Auto) 0.0 % Neut % (Auto) 67.8 % Lymph % (Auto) 23.2 % [place] % (Auto) 8.0 % Eos % (Auto) 0.7 % Baso % (Auto) 0.3 % Immature Gran # (Auto) 0.00 (0.00-0.02) K/uL Neut # (Auto) 4.85 (1.4-6.5) K/uL Lymph # (Auto) 1.66 (1.2-3.4) K/uL [place] # (Auto) 0.57 (0.11-0.59) K/uL Eos # (Auto) 0.05 (0-0.5) K/uL Baso # (Auto) 0.02 (0-0.2) K/uL PT (9.0-12.0) Seconds INR (0.9-1.1) APTT (21.0-31.0) Seconds PTT Ratio Sodium 142 (136-145) mmol/L Potassium 3.7 (3.5-5.1) mmol/L Chloride 106 (98-107) mmol/L Carbon Dioxide 28 (21-32) mmol/L Anion Gap 8.0 (3-11) BUN 18 (7-18) mg/dl Creatinine 0.89 (0.6-1.2) mg/dl Est Cr Clr Drug Dosing 46.4 ml/min Est GFR ( Amer) 70.4 Est GFR (Non-Af Amer) 60.8 BUN/Creatinine Ratio 20.3 H (10-20) Glucose 127 H (70-99) mg/dl POC Glucose (70-99) Calcium 9.2 (8.5-10.1) mg/dl Total Bilirubin 0.8 (0.2-1) mg/dl AST 25 (15-37) U/L ALT 23 (12-78) U/L Alkaline Phosphatase 127 H (45-117) U/L Total Protein 7.0 (6.4-8.2) gm/dl Albumin 4.1 (3.4-5.0) gm/dl Globulin 2.9 (2.5-4.0) gm/dl Albumin/Globulin Ratio 1.4 (0.9-2) Lipase 76 (73-393) U/L Urine Color Urine Appearance (Clear) Urine pH (4.5-7.5) Ur Specific [place] (1.000-1.030) Urine Protein (Negative) Urine Glucose (UA) (Negative) Urine Ketones (Negative) Urine Blood (Negative) Urine Nitrite (Negative) Urine Bilirubin (Negative) Urine Urobilinogen (Negative) Ur Leukocyte Esterase (Negative) Urine WBC (Auto) (0-5) /hpf Urine RBC (Auto) (0-4) /hpf U Hyaline Cast (Auto) (0-5) /lpf U Epithel Cells (Auto) (0-5) /lpf Urine Bacteria (Auto) (Negative) Urine Mucus (None Prsent)
[2019-08-22] MEDS: D5W AND 1/2NSS 1,000 ML IV SCH (12:37)
[2019-08-22] MEDS: ALPRAZolam 0.25 MG TABLET PO PRN (13:42)
[2019-08-22] MEDS: ONDANSETRON INJ 2 MG/ML 2 ML VIAL IV PRN ×2 (17:41→23:56)
--- NOTE | 2019-08-22 18:01 | Hospitalist Progress Note ---
Date of Service August 22, 2019 Assessment & Plan (1) Intractable nausea and vomiting: Chronic nausea and vomiting. Evaluated in May and symptoms were attributed to gastroparesis. Recent abnormal HIDA scan consistent with chronic cholecystitis. Continue management of gastroparesis with small meals. Cholecystectomy anticipated during this hospital stay. (2) Chronic cholecystitis: As noted above. (3) GERD (gastroesophageal reflux disease): Continue PPI. (4) Diabetes mellitus, type II: History of diet-controlled diabetes mellitus. Hemoglobin A1c 6.4 on 04/26/2019. Fasting blood sugar today = 96. (5) Dyslipidemia: Continue atorvastatin. (6) Parkinson disease: Continue primidone, carbidopa/levodopa. (7) Hypokalemia: Serum potassium today = 3.3. Replace, follow. (8) DVT prophylaxis: No anticoagulants at this time because of anticipated surgery. SCDs. Ambulate. (9) Discharge planning issues: Discharge disposition to be determined. Family Medicine follow-up with Dr. Mendez. Subjective Recheck for multiple problems. Patient seen in their room around 1000. Having problems with nausea and vomiting for several months. Symptoms were attributed to gastroparesis. Further evaluation led to the HIDA scan that suggested chronic cholecystitis. Scheduled for elective cholecystectomy with Dr. aCsh on 08/23. Admitted yesterday because of ongoing severe symptoms. Nauseated this morning, but no emesis. No bowel movement for several days. Review of Systems: Constitutional- no fever. Cardiac- no chest pain. Pulmonary- no cough or SOB. GI- as noted above. - no urinary symptoms. Otherwise, as noted above. Physical Exam Constitutional: no acute distress Respiratory: no respiratory distress Auscultation: lungs clear to ausc ultation bilaterally Cardiovascular: Rate/Rhythm: regular rate and regular rhythm Heart Sounds: no gallop, no murmur and no cardiac rub Vessels: no JVD Extremities: no calf tenderness and no edema Gastrointestinal (Abdomen): normal bowel sounds, soft, nontender, no hepatosplenomegaly Skin: no rashes, warm and dry Neurologic: Motor/Sensory: + tremor (resting) Psychiatric: Orientation: alert and oriented x 3 Results & Data Vital Signs (Past 12 Hours) Vital Signs Temp Pulse Resp BP BP Pulse Ox 08/22/19 15:50 36.5 C 74 17 148/64 H 97 08/22/19 07:24 36.7 C 75 20 157/91 H 98 Laboratory Results 08/22/19 05:16 08/22/19 05:16
[2019-08-22] MEDS: D5W AND 1/2NSS + 20MEQ KCL 20 MEQ/1,000 ML BAG IV SCH (19:08)
[2019-08-23] MEDS ORDERED: Nursing to Pharmacy Communication ONE ×2 (00:38→09:53)
[2019-08-23] MEDS: D5W AND 1/2NSS + 20MEQ KCL 20 MEQ/1,000 ML BAG IV SCH ×3 (03:23→18:38)
[2019-08-23] MEDS ORDERED: INSULIN ASPART 100 UNITS/ML 3 ML PEN SC SCH (06:00)
[2019-08-23 06:04] LABS: BUN Creatinine Ratio 7.4 (10-20); Calcium 8.6 mg/dl (8.5-10.1); Creatinine Clr Calc Pharmacy 64.5 ml/min; Est GFR (Non-African American) 83.7; Potassium 3.3 mmol/L (3.5-5.1)
[2019-08-23] MEDS ORDERED: ATROPINE SULFATE 0.1 MG/ML 10ML SYR IV PRN (06:42)
[2019-08-23] MEDS ORDERED: ONDANSETRON INJ 2 MG/ML 2 ML VIAL IV PRN (06:42)
[2019-08-23] MEDS ORDERED: fentaNYL citrate 100 MCG/2 ML VIAL IV PRN (06:42)
[2019-08-23] MEDS ORDERED: ePHEDrine sulfate 50 MG/ML AMP IV PRN (06:42)
[2019-08-23] MEDS ORDERED: FAMOTIDINE 20 MG in SYRINGE 3 ML IV STA (06:44)
--- NOTE | 2019-08-23 06:48 | Anesthesiology Consultation ---
Date of Service August 23, 2019 Assessment & Plan ASA ASA3 Proposed Anesthesia Anesthesia Type: General Risk / Benefits Reviewed With: PT / POA / Parent / Guardian, Accepts Plan and Informed Consent Obtained History Surgery Operation Date: 08/23/19 07:00 Proposed Procedures p Laparoscopic Cholecystectomy, Possible Open or Cholangiogram - Brenden Cash MD Height/Weight Height: 5 ft 2 in Weight: 73 kg Allergies Allergy/AdvReac Type Severity Reaction Status Date / Time codeine Allergy Severe SEVERE Verified 08/21/19 14:07 HEADACHE, NAUSEA & VOMITING morphine Allergy Severe SEVERE Verified 08/21/19 14:07 HEADACHE, NAUSEA, & VOMITING pentazocine [From Talwin] Allergy Severe DECREASED Verified 08/21/19 14:07 MOTOR SKILL, SOB. Medications Home Medications Medication Instructions Recorded Confirmed Last Taken alprazolam 0.25 mg PO TID PRN 10/14/18 08/21/19 Unknown aspirin [Aspir-81] 81 mg PO QAM 10/14/18 08/21/19 10/14/18 omeprazole 20 mg PO BID 10/14/18 08/21/19 10/13/18 bupropion HCl 150 mg PO BID 05/31/19 08/21/19 Unknown carbidopa-levodopa 1 tab PO TID 05/31/19 08/21/19 Unknown primidone 50 mg PO BID 05/31/19 08/21/19 Unknown polyethylene glycol 3350 [Miralax] 17 g PO DAILY #1 ea 06/16/19 08/21/19 Unknown Active Medications Generic Name Dose Route Start Last Admin Trade Name Freq PRN Reason Stop Dose Admin Alprazolam 0.25 mg 08/21/19 16:59 08/22/19 13:42 Xanax PO 09/20/19 16:58 0.25 mg TID PRN Administration Anxiety Bupropion HCl 150 mg 08/21/19 21:00 08/22/19 20:12 Wellbutrin-Sr PO 09/20/19 20:59 150 mg BID LINDSAY Administration Carbidopa/Levodopa 1 tab 08/21/19 21:00 08/22/19 20:11 Sinemet 25/100 Mg PO 09/20/19 20:59 1 tab TID LINDSAY Administration Heparin Sodium (Porcine) 5,000 units 08/21/19 22:00 08/22/19 06:10 Heparin Sodium (Porcine) SQ 09/20/19 21:59 Not Given Q8 LINDSAY Ceftriaxone Sodium 1,000 mg/ 60 mls @ 100 mls/hr 08/21/19 21:50 08/22/19 10:17 Dextrose IV 08/26/19 21:49 Infused DAILY LINDSAY Infusion Protocol Potassium Chloride/Dextrose/Sod Cl 20 meq in 1,000 mls @ 125 mls/hr 08/22/19 18:15 08/23/19 06:12 D5w And 1/2nss + 20meq Kcl IV 09/21/19 18:14 125 mls/hr .Q8H LINDSAY Infusion Insulin Aspart 0 units 08/23/19 06:00 08/23/19 05:59 Novolog Flexpen SC 09/22/19 05:59 Not Given Q6 LINDSAY Miscellaneous 15 - 30 gm 08/21/19 16:59 08/21/19 17:32 Carbohydrates For Hypoglycemia PO 09/20/19 16:58 15 gm UD PRN Administration Hypoglycemia Protocol Ondansetron HCl 4 mg 08/21/19 16:59 08/22/19 23:56 Zofran IV 09/20/19 16:58 4 mg Q6H PRN Administration Nausea Pantoprazole Sodium 40 mg 08/21/19 21:00 08/22/19 21:17 Protonix PO 09/20/19 20:59 40 mg BID LINDSAY Administration Protocol Polyethylene Glycol 17 gm 08/22/19 09:00 08/22/19 09:01 Miralax Powder Packet PO 09/21/19 08:59 17 gm DAILY LINDSAY Administration Polyethylene Glycol 17 gm 08/21/19 16:59 08/21/19 17:22 Miralax Powder Packet PO 09/20/19 16:58 17 gm DAILY PRN Administration Constipation Primidone 50 mg 08/21/19 21:00 08/22/19 20:12 Primidone PO 09/20/19 20:59 50 mg BID LINDSAY Administration NPO Date Last Intake of Fluids: 08/22/19 Time Last Intake of Fluids: 23:59 Date Last Intake of Solids: 08/22/19 Time Last Intake of Solids: 23:59 Past Medical History Medical History Anxiety and depression (Chronic) HTN (hypertension) (Chronic) Dyslipidemia (Chronic) Parkinson disease (Chronic) Tremor (Chronic) Gastroesophageal reflux disease (Inactive) Chronic back pain Exercise / Class Metabolic Activity III < 4 Walking/Shop/Light housework Past Family History Family History Father , 51 Myocardial infarction Hypertension Past Surgical History Surgical History History of cervical spinal surgery (Chronic) X 2 History of lumbosacral spine surgery (Chronic) X2 History of tubal ligation (Chronic) History of open reduction and internal fixation (ORIF) procedure RIGHT WRIST Hx of cataract surgery RIGHT AND LEFT Hx of tonsillectomy Past Anesthesia History No Hx of Anesthesia Complications and No Family Hx of Anesthesia Complications History of PONV No Hx of PONV and No Hx of Motion Sickness Social History Smoking Status: Never smoker Do You Dip or Chew Tobacco: No Hx Alcohol Use: Yes Alcohol type: hard liquor alcohol intake frequency: holidays/special occasions only Hx Substance Use: No substance use type: does not use Review of Systems denies fever/cough/ colds/ chest pain/ SOB/ LYNDON denies ID/CVA/Seizure PT WITH GASTROPARESIS, NO SOLID FOOD FOR DAYS Physical Exam Vital Signs Last Vital Signs Temp 36.7 C 08/23/19 05:47 Pulse 82 08/23/19 05:47 Resp 18 08/23/19 05:47 BP 140/82 08/23/19 05:47 Pulse Ox 97 08/23/19 05:47 ENMT Mouth: + dentures (Upper plate); no TMJ abnormality and no dentition abnormality Thyromental Distance: > or= 3.5 Finger Breadths Mallampati Class: III Neck neck extension not limited Respiratory normal respiratory effort; no respiratory distress Auscultation: lungs clear to auscultation bilaterally Cardiovascular Rate/Rhythm: regular rate and regular rhythm Neurologic moves all extremities Psychiatric Orientation: alert and oriented x 3 Testing Laboratory Results 08/22/19 05:16 08/23/19 05:12 PT 11.8 Seconds (9.0-12.0) 08/22/19 05:16 INR 1.2 (0.9-1.1) H 08/22/19 05:16 APTT 25.0 Seconds (21.0-31.0) 08/22/19 05:16 Urine Color Dark Yellow 08/21/19 20:00 Urine Appearance Cloudy (Clear) A 08/21/19 20:00 Urine pH 6.0 (4.5-7.5) 08/21/19 20:00 Ur Specific [place] 1.021 (1.000-1.030) 08/21/19 20:00 Urine Protein Negative (Negative) 08/21/19 20:00 Urine Glucose (UA) Negative (Negative) 08/21/19 20:00 Urine Ketones 3+ (Negative) H 08/21/19 20:00 Urine Nitrite Negative (Negative) 08/21/19 20:00 Ur Leukocyte Esterase 2+ (Negative) H 08/21/19 20:00 Urine WBC (Auto) 10-30 /hpf (0-5) H 08/21/19 20:00 Urine RBC (Auto) 0-4 /hpf (0-4) 08/21/19 20:00 U Hyaline Cast (Auto) 1-5 /lpf (0-5) 08/21/19 20:00 U Epithel Cells (Auto) >30 /lpf (0-5) H 08/21/19 20:00 Urine Bacteria (Auto) Negative (Negative) 08/21/19 20:00 08/21/19 20:00 Urine Culture - Preliminary Urine,Clean Catch No growth - Less than 1,000 colonies/mL, Final report to follow. 08/23/19 08/22/19 05:25 20:09 POC Glucose 109 H 104 H : Abdominal pain Qualifiers: Abdominal location: unspecified location Qualified Code(s): R10.9 - Unspecified abdominal pain
--- NOTE | 2019-08-23 06:52 | History & Physical Bridge Note ---
Date of Service August 23, 2019 History & Physical Bridge Note I have examined the patient, reviewed the History & Physical and in the interval since the performance of the History & Physical I have noted the following changes of clinical significance: no changes noted
[2019-08-23] MEDS ORDERED: CEFAZOLIN 2,000 MG/15 ML IV PUSH IV ONE (06:53)
[2019-08-23] MEDS ORDERED: CEFAZOLIN 2000MG 2,000 MG/15 ML SYR IV ONE (06:53)
[2019-08-23] MEDS ORDERED: BACITRACIN OINT 15 GM TUBE ONE (06:57)
[2019-08-23] MEDS ORDERED: LIDOCAINE HCL 1% 20 ML VIAL ONE (06:57)
[2019-08-23] MEDS ORDERED: BUPIVACAINE 0.5 % 5 MG/1 ML MPF 30ML VIAL ONE (06:57)
--- NOTE | 2019-08-23 08:13 | Post Operative Brief Note ---
Immediate Post Op Note v1 Date of Surgery August 23, 2019 Pre & Post Diagnosis Operation Date: 08/23/19 07:00 Pre-Op Diagnosis: CHRONIC ACALCULOUS CHOLECYSTITIS, PERSISTENT NAUSEA, DYSFUNCTION GALLBLADDER Post-Op Diagnosis: CHRONIC ACALCULOUS CHOLECYSTITIS, PERSISTENT NAUSEA, DYSFUNCTION GALLBLADDER I identified the patient and participated in the time-out.: Yes Procedure Operation Date: 08/23/19 07:00 Actual Procedures p Laparoscopic Cholecystectomy(Not Applicable) - Brenden Cash MD Surgeon Brenden Cash MD Cloth Colors Examiner raul Rodriguez Estimated Blood Loss 10 Findings Consistent with Post-Op Diagnosis Fluids 700ML Specimens GALLBLADDER Anesthesia Type General Complications none Disposition Accompanied Patient To Recovery: Yes Disposition: Recovery Room Overlapping Procedure I was immediately available: during the entire case.
--- NOTE | 2019-08-23 08:45 | Operative Report ---
DATE OF OPERATION: 08/23/2019 PREOPERATIVE DIAGNOSIS: Dysfunctional gallbladder. POSTOPERATIVE DIAGNOSIS: Dysfunctional gallbladder. OPERATION: Laparoscopic cholecystectomy. SURGEON: Brenden Cash MD MAINTENANCE ELECTRICIAN: Janet Garza PA-C. ANESTHESIA: General. ESTIMATED BLOOD LOSS: About 10 mL. FINDINGS: Dysfunction gallbladder with chronic cholecystitis. COMPLICATIONS: None. INDICATIONS FOR THE PROCEDURE: This is an 79-year-old female who presented with nausea and vomiting for 6 months and the patient had a HIDA scan showing his gallbladder, EF of . The patient diagnosed as dysfunctional gallbladder, I recommended to do the laparoscopic cholecystectomy, possible open, possible cholangiogram. I did talk to the patient about the benefit and risk, alternate procedure. I indicated the risks may include but not limited such as bleeding, infection, injury to common bile duct, injury to the bowel, myocardial infarction, DVT, stroke, even . The patient understands. She signed informed consent and I answered all questions. DETAILS OF PROCEDURE: We brought the patient to the OR, put the patient in the supine position. The patient received SCD on bilateral legs to prevent DVT. Also, patient received 2 grams Ancef IV for prophylactic antibiotic. The patient received general anesthesia without difficulties. Abdomen was appropriately draped in routine sterile fashion. After timeout, I injected local anesthesia by using 1% lidocaine mixed with 0.5% Marcaine just above umbilicus, then made a small incision just above umbilicus, opened fascia and opened peritoneum under direct vision, put a Caitie trocar in, connected to CO2 to create pneumoperitoneum. Flow rate at 6 liter per minute. Pressure not more than 14 mmHg. Once we got a nice pneumoperitoneum, we put the camera in, looked around the abdomen shows normal finding on the liver. However, the gallbladder shows chronic cholecystitis with gallbladder wall thickening. Once confirmed diagnosis we put another three 5 mm trocar on the right upper quadrant. Once all trocars in, we put a grasper to hold the base of gallbladder, put direction to the diaphragm, another grasper to hold the pouch of gallbladder, put latter to expunge triangle of Calot. The cystic duct was identified and mobilized. I put two 5 mm metal clip on the proximal cystic duct, and one on the distal cystic duct, then used a scissor for transection of cystic duct. Rechecked and no bile leak. The cystic artery was identified and mobilized. I put two 5 mm metal clip on the proximal cystic artery, one on the distal cystic artery, then used a scissor for transection of cystic artery. Rechecked and no active bleeding. Then we used the Bovie to take down gallbladder from the liver bed. Rechecked, no active bleeding, no bile leak from the liver bed. Then we removed gallbladder through the catch bag then we reinserted Caitie trocar in, connected to CO2 to create pneumoperitoneum, again looked around the abdomen, no active bleeding, no bile leak from the liver bed. Then we removed all trocar under direct vision. No active bleeding from the trocar sites. Pneumoperitoneum was released then I closed the umbilical incision, fascial layer by using #1 Vicryl [id number] x2, closed subcutaneous layer by using 2-0 Vicryl interrupted, closed skin by using 4-0 Vicryl continuous running, closed another three 5 mm trocar site to skin only by using 4-0 Vicryl. Then we put the dressing on. The patient tolerated the procedure well. All instrument, needle and sponge count were correct x2 at the end of the case. The patient transferred to recovery room in stable condition. After procedure, I did talk to the patient about the OR finding and procedure we did, she understands. I attest to the content of the Intraoperative Record and any orders documented therein. Any exception s are noted below.
--- NOTE | 2019-08-23 09:07 | Anesthesiology Progress Note ---
Date of Service August 23, 2019 Anesthesia Post Procedure Vital Signs Vital Signs: Temp Pulse Pulse Resp BP BP Pulse Ox 08/23/19 08:55 36.0 C L 90 14 166/81 H 100 08/23/19 08:45 36.0 C L 97 H 21 164/95 H 100 08/23/19 08:35 36.0 C L 96 H 26 H 163/92 H 100 08/23/19 05:47 36.7 C 82 18 140/82 97 08/23/19 00:15 168/90 H 08/22/19 23:05 36.5 C 89 16 172/99 H 98 08/22/19 15:50 36.5 C 74 17 148/64 H 97 Pain Intensity Bilateral Abdomen: Pain Intensity: 0 Transfer of Care Handoff Completed per policy Notes Mental Status: alert / awake / arousable and participated in evaluation Patient Amnestic to Procedure: Yes Nausea / Vomiting: adequately controlled Pain: adequately controlled Airway Patency, RR, SpO2: stable & adequate BP & HR: stable & adequate Hydration State: stable & adequate Anesthetic Complications: no major complications apparent and Pt Satisfied with anesthetic care
[2019-08-23] MEDS: ONDANSETRON INJ 2 MG/ML 2 ML VIAL IV PRN ×2 (09:32→17:01)
[2019-08-23] MEDS: POTASSIUM CHLORIDE / WTR 10 MEQ/100 ML PLCT IV SCH ×2 (09:33→10:54)
[2019-08-23] MEDS ORDERED: TRAMADOL HCL 50 MG TABLET PO PRN (10:02)
[2019-08-23] MEDS: cefTRIAXone SODIUM 1,000 MG in DEXTROSE 5% 50 ML IV SCH (10:40)
[2019-08-23] MEDS: BuPROPion SR 150 MG TABCR PO SCH ×2 (11:31→20:57)
[2019-08-23] MEDS: PANTOprazole 40 MG TAB PO SCH ×2 (11:31→20:56)
[2019-08-23] MEDS: PRIMIDONE 50 MG TAB PO SCH ×2 (11:32→20:57)
[2019-08-23] MEDS: CARBIDOPA/LEVODOPA 25/100MG TAB PO SCH ×3 (11:32→20:57)
[2019-08-23] MEDS: ASPIRIN 81 MG ECTAB PO SCH (11:32)
[2019-08-23] MEDS: POLYETHYLENE (MIRALAX) 17 GM PACK PO SCH (11:33)
[2019-08-23] MEDS: INSULIN ASPART 100 UNITS/ML 3 ML PEN SC SCH ×3 (13:08→21:45)
[2019-08-23] MEDS: ALPRAZolam 0.25 MG TABLET PO PRN (17:06)
--- NOTE | 2019-08-23 19:36 | Hospitalist Progress Note ---
Date of Service August 23, 2019 Assessment & Plan (1) Intractable nausea and vomiting: Chronic nausea and vomiting. Evaluated in May and symptoms were attributed to gastroparesis. Recent abnormal HIDA scan consistent with chronic cholecystitis. Continue management of gastroparesis with small meals. Laparoscopic cholecystectomy performed by Dr. Cash. (2) Chronic cholecystitis: As noted above. (3) GERD (gastroesophageal reflux disease): Continue PPI. (4) Diabetes mellitus, type II: History of diet-controlled diabetes mellitus. Hemoglobin A1c 6.4 on 04/26/2019. Fasting blood sugar today = 109. (5) Dyslipidemia: Continue atorvastatin. (6) Parkinson disease: Continue primidone, carbidopa/levodopa. (7) Hypokalemia: Serum potassium today remains low @ 3.3. Replace, follow. (8) Abnormal urinalysis: Admission UA demonstrated WBC's, no bacteria, many epithelial cells. Urine culture grew gamma strep and Gardnerella-like bacilli. No fever or urinary symptoms. Received IV ceftriaxone. UTI unlikely. Bacteria in urine C&S probably contaminants. DC antibiotics. (9) Malnutrition: Probable malnutrition due to chronic nausea and vomiting and compromised PO intake. Weight has fallen from 86 kg in May to 73 kg now. Consult Fax Machine Repairer. Diet / supplements as tolerated. (10) DVT prophylaxis: No anticoagulants at this time because of anticipated surgery. SCDs. Ambulate. (11) Discharge planning issues: Discharge disposition to be determined. Family Medicine follow-up with Dr. Mendez. Subjective Recheck for multiple problems. Patient seen in their room around 1330. Laparoscopic cholecystectomy performed this morning by Dr. Cash. Doing well postop. Not much pain. Has some gas and nausea, no emesis. Review of Systems: Constitutional- no fever. Cardiac- no chest pain. Pulmonary- no cough or SOB. GI- as noted above. - no urinary symptoms. Otherwise, as noted above. Physical Exam Constitutional: no acute distress Respiratory: no respiratory distress Auscultation: lungs clear to auscultation bilaterally Cardiovascular: Rate/Rhythm: regular rate and regular rhythm Heart Sounds: no gallop, no murmur and no cardiac rub Vessels: no JVD Extremities: no calf tenderness and no edema Gastrointestinal (Abdomen): Inspection/Auscultation: + abnormal bowel sounds (quiet) Percussion/Palpation: abdomen soft Skin: no rashes, warm and dry Neurologic: Motor/Sensory: + tremor (resting) Psychiatric: Orientation: alert and oriented x 3 Results & Data Vital Signs (Past 12 Hours) Vital Signs Temp Pulse Pulse Resp BP Pulse Ox 08/23/19 15:15 36.6 C 78 17 104/62 98 08/23/19 12:40 70 18 156/74 H 98 08/23/19 11:30 84 16 146/83 H 98 08/23/19 10:30 36.3 C L 82 20 160/77 H 98 08/23/19 10:00 36.3 C L 79 20 143/79 H 94 08/23/19 09:25 36.4 C L 60 16 117/72 96 08/23/19 09:05 36.0 C L 57 L 19 117/67 100 08/23/19 08:55 36.0 C L 90 14 166/81 H 100 08/23/19 08:45 36.0 C L 97 H 21 164/95 H 100 08/23/19 08:35 36.0 C L 96 H 26 H 163/92 H 100 Laboratory Results 08/22/19 05:16 08/23/19 05:12
[2019-08-24] MEDS: D5W AND 1/2NSS + 20MEQ KCL 20 MEQ/1,000 ML BAG IV SCH ×2 (05:12→15:06)
[2019-08-24 05:15] LABS: Basophils # (auto) 0.01 K/uL (0-0.2); Basophils % (auto) 0.2 %; Eosinophils # (auto) 0.03 K/uL (0-0.5); Eosinophils % (auto) 0.5 %; Hematocrit (blood only) 41.3 % (37-47); Hemoglobin 14.2 g/dL (12.0-16.0); Lymphocytes # (auto) 1.54 K/uL (1.2-3.4); Lymphocytes % (auto) 26.1 %; Mean Corpuscular Hemoglobin 31.8 pg (25-34); Mean Corpuscular Hgb Conc 34.4 g/dL (32-36); Mean Corpuscular Volume 92.6 fL (80-100); Mean Platelet Volume 11.1 fL (7.4-10.4); Monocytes # (auto) 0.61 K/uL (0.11-0.59); Monocytes % (auto) 10.3 %; Neutrophils # (auto) 3.71 K/uL (1.4-6.5); Neutrophils % (auto) 62.9 %; Platelet Count 165 K/uL (130-400); RDW Coefficient of Variation 14.6 % (11.5-14.5); RDW Standard Deviation 49.3 fL (36.4-46.3); Red Blood Count 4.46 M/uL (4.2-5.4)
[2019-08-24 05:51] LABS: Albumin Level 3.3 gm/dl (3.4-5.0); BUN Creatinine Ratio 4.4 (10-20); Calcium 8.5 mg/dl (8.5-10.1); Creatinine Clr Calc Pharmacy 73.7 ml/min; Est GFR (African American) 101.3; Est GFR (Non-African American) 87.4; Potassium 3.7 mmol/L (3.5-5.1)
[2019-08-24 05:54] LABS: Albumin Globulin Ratio 1.3 (0.9-2); Bilirubin,Total 0.6 mg/dl (0.2-1); Globulin 2.6 gm/dl (2.5-4.0); Total Protein 5.9 gm/dl (6.4-8.2)
--- NOTE | 2019-08-24 08:13 | Anesthesiology Progress Note ---
Date of Service August 24, 2019 Anesthesia Post Procedure Vital Signs Vital Signs: Temp Pulse Pulse Resp BP Pulse Ox 08/24/19 07:52 155/100 H 08/24/19 07:44 36.5 C 85 18 98 08/24/19 03:23 36.7 C 81 16 123/73 94 08/23/19 23:06 36.8 C 85 16 144/72 H 95 08/23/19 15:15 36.6 C 78 17 104/62 98 08/23/19 12:40 70 18 156/74 H 98 08/23/19 11:30 84 16 146/83 H 98 08/23/19 10:30 36.3 C L 82 20 160/77 H 98 08/23/19 10:00 36.3 C L 79 20 143/79 H 94 08/23/19 09:25 36.4 C L 60 16 117/72 96 08/23/19 09:05 36.0 C L 57 L 19 117/67 100 08/23/19 08:55 36.0 C L 90 14 166/81 H 100 08/23/19 08:45 36.0 C L 97 H 21 164/95 H 100 08/23/19 08:35 36.0 C L 96 H 26 H 163/92 H 100 Pain Intensity Bilateral Abdomen: Pain Intensity: 4 Notes Mental Status: alert / awake / arousable Patient Amnestic to Procedure: Yes Nausea / Vomiting: adequately controlled Pain: adequately controlled Airway Patency, RR, SpO2: stable & adequate BP & HR: stable & adequate Hydration State: stable & adequate Anesthetic Complications: no major complications apparent
[2019-08-24] MEDS: ASPIRIN 81 MG ECTAB PO SCH (09:00)
[2019-08-24] MEDS: CARBIDOPA/LEVODOPA 25/100MG TAB PO SCH ×3 (09:01→20:12)
[2019-08-24] MEDS: PRIMIDONE 50 MG TAB PO SCH ×2 (09:01→20:12)
[2019-08-24] MEDS: PANTOprazole 40 MG TAB PO SCH ×2 (09:01→20:12)
[2019-08-24] MEDS: BuPROPion SR 150 MG TABCR PO SCH ×2 (09:02→20:12)
[2019-08-24] MEDS: POLYETHYLENE (MIRALAX) 17 GM PACK PO SCH (09:04)
[2019-08-24] MEDS: INSULIN ASPART 100 UNITS/ML 3 ML PEN SC SCH ×4 (09:08→21:06)
--- NOTE | 2019-08-24 16:45 | Surgery Progress Note ---
Date of Service August 24, 2019 Assessment & Plan (1) Intractable nausea and vomiting: POD # 1 s/p laparoscopic cholecystectomy -vitals stable, afebrile - +persistent nausea - post op pain minimal - passing flatus, no bowel movement prior to admission Plan: advance diet as tolerated continue pain management as needed encourage ambulation continue daily miralax, consider another suppository Dr. Cash recommended colonoscopy as an outpatient since patient has never had one, patient states she does not want to have colonoscopy but will think about it. continue medical management Dr. Cash has seen patient, agrees with above. Subjective not having much abdominal pain, only at incisions still having nausea, dry heaves last evening tolerated clear liquids passing flatus, no bowel movement since prior to admission Physical Exam Constitutional: WD/WN, vitals as above no acute distress Gastrointestinal (Abdomen): Inspection/Auscultation: abdomen normal to inspection; abdomen not distended Percussion/Palpation: + abdomen tender (at incisions) and abdomen soft; no guarding and abdomen not rigid Skin: no rashes, warm and dry Psychiatric: A+Ox3, euthymic affect Results & Data Vital Signs (Past 12 Hours) Vital Signs Temp Pulse Resp BP Pulse Ox 08/24/19 15:11 36.7 C 90 18 164/89 H 100 08/24/19 11:35 36.3 C L 85 17 165/92 H 98 08/24/19 07:52 155/100 H 08/24/19 07:44 36.5 C 85 18 98 Laboratory Results 08/24/19 08/24/19 08/24/19 Range/Units 12:02 08:02 04:32 WBC (4.8-10.8) K/uL RBC (4.2-5.4) M/uL Hgb (12.0-16.0) g/dL Hct (37-47) % MCV (80-100) fL MCH (25-34) pg MCHC (32-36) g/dL RDW Std Deviation (36.4-46.3) fL RDW Coeff of Yareli (11.5-14.5) % Plt Count (130-400) K/uL MPV (7.4-10.4) fL Immature Gran % (Auto) % Neut % (Auto) % Lymph % (Auto) % Caroline % (Auto) % Eos % (Auto) % Baso % (Auto) % Immature Gran # (Auto) (0.00-0.02) K/uL Neut # (Auto) (1.4-6.5) K/uL Lymph # (Auto) (1.2-3.4) K/uL Caroline # (Auto) (0.11-0.59) K/uL Eos # (Auto) (0-0.5) K/uL Baso # (Auto) (0-0.2) K/uL Sodium 143 (136-145) mmol/L Potassium 3.7 (3.5-5.1) mmol/L Chloride 109 H (98-107) mmol/L Carbon Dioxide 28 (21-32) mmol/L Anion Gap 6.0 (3-11) BUN 2 L (7-18) mg/dl Creatinine 0.56 L (0.6-1.2) mg/dl Est Cr Clr Drug Dosing 73.7 ml/min Est GFR ( Amer) 101.3 Est GFR (Non-Af Amer) 87.4 BUN/Creatinine Ratio 4.4 L (10-20) Glucose 98 (70-99) mg/dl POC Glucose 106 H 103 H (70-99) Calcium 8.5 (8.5-10.1) mg/dl Total Bilirubin 0.6 (0.2-1) mg/dl AST 26 (15-37) U/L ALT 11 L (12-78) U/L Alkaline Phosphatase 109 (45-117) U/L Total Protein 5.9 L (6.4-8.2) gm/dl Albumin 3.3 L (3.4-5.0) gm/dl Globulin 2.6 (2.5-4.0) gm/dl Albumin/Globulin Ratio 1.3 (0.9-2) 08/24/19 08/23/19 08/23/19 Range/Units 04:32 20:37 17:28 WBC 5.90 (4.8-10.8) K/uL RBC 4.46 (4.2-5.4) M/uL Hgb 14.2 (12.0-16.0) g/dL Hct 41.3 (37-47) % MCV 92.6 (80-100) fL MCH 31.8 (25-34) pg MCHC 34.4 (32-36) g/dL RDW Std Deviation 49.3 H (36.4-46.3) fL RDW Coeff of Yareli 14.6 H (11.5-14.5) % Plt Count 165 (130-400) K/uL MPV 11.1 H (7.4-10.4) fL Immature Gran % (Auto) 0.0 % Neut % (Auto) 62.9 % Lymph % (Auto) 26.1 % Caroline % (Auto) 10.3 % Eos % (Auto) 0.5 % Baso % (Auto) 0.2 % Immature Gran # (Auto) 0.00 (0.00-0.02) K/uL Neut # (Auto) 3.71 (1.4-6.5) K/uL Lymph # (Auto) 1.54 (1.2-3.4) K/uL Caroline # (Auto) 0.61 H (0.11-0.59) K/uL Eos # (Auto) 0.03 (0-0.5) K/uL Baso # (Auto) 0.01 (0-0.2) K/uL Sodium (136-145) mmol/L Potassium (3.5-5.1) mmol/L Chloride (98-107) mmol/L Carbon Dioxide (21-32) mmol/L Anion Gap (3-11) BUN (7-18) mg/dl Creatinine (0.6-1.2) mg/dl Est Cr Clr Drug Dosing ml/min Est GFR ( Amer) Est GFR (Non-Af Amer) BUN/Creatinine Ratio (10-20) Glucose (70-99) mg/dl POC Glucose 106 H 108 H (70-99) Calcium (8.5-10.1) mg/dl Total Bilirubin (0.2-1) mg/dl AST (15-37) U/L ALT (12-78) U/L Alkaline Phosphatase (45-117) U/L Total Protein (6.4-8.2) gm/dl Albumin (3.4-5.0) gm/dl Globulin (2.5-4.0) gm/dl Albumin/Globulin Ratio (0.9-2)
[2019-08-24] MEDS ORDERED: LORazepam 0.5 MG TAB SL PRN (17:16)
[2019-08-24] MEDS ORDERED: LORazepam 1 MG TAB SL STA (17:16)
[2019-08-24] MEDS: DOCUSATE SODIUM 100 MG CAP PO SCH (20:15)
--- NOTE | 2019-08-24 22:49 | Hospitalist Progress Note ---
Date of Service August 24, 2019 Assessment & Plan (1) Intractable nausea and vomiting: Chronic nausea and vomiting. Evaluated in May and symptoms were attributed to gastroparesis. Recent abnormal HIDA scan consistent with chronic cholecystitis. Continue management of gastroparesis with small meals. Laparoscopic cholecystectomy performed by Dr. Cash. Persistent nausea and vomiting postop. Seen by GI in past. Costilla most likely to have gastroparesis due to underlying diabetes and/or Par kinson's disease. Given information on gastroparesis diet. Ongoing nausea and anorexia; vomited twice in last 24 hrs. Not good candidate for metoclopramide. Full liquids until symptoms improved. Advance diet as tolerated. Discuss case further with GI if symptoms do not improve. (2) Chronic cholecystitis: Laparoscopic cholecystectomy performed by Dr. Cash. POD # 2. (3) Constipation: Severe constipation has been an issue for some time. Has tried multiple remedies, including MiraLAX. Oral administration of laxatives and stool softeners has been limited because of nausea and vomiting. Colonoscopy has been discussed, but patient is absolutely not interested. Severe constipation could be contributing factor to her persistent nausea and vomiting. Check KUB tomorrow morning. Try bowel regimen of enemas and suppositories. Consult GI if no improvement. (4) GERD (gastroesophageal reflux disease): Continue PPI. (5) Diabetes mellitus, type II: History of diet-controlled diabetes mellitus. Hemoglobin A1c 6.4 on 04/26/2019. Fasting blood sugar today = 103. (6) Dyslipidemia: Continue atorvastatin. (7) Parkinson disease: Continue primidone, carbidopa/levodopa. (8) Hypokalemia: Serum potassium as low as 3.3. Potassium today = 3.7. Follow. (9) Abnormal urinalysis: Admission UA demonstrated WBC's, no bacteria, many epithelial cells. Urine culture grew gamma strep and Gardnerella-like bacilli. No fever or urinary symptoms. Received IV ceftriaxone. UTI unlikely. Bacteria in urine C&S probably contaminants. DC antibiotics. (10) Malnutrition: Probable malnutrition due to chronic nausea and vomiting and compromised PO intake. Weight has fallen from 86 kg in May to 73 kg now. Recording Studio Setup Worker consulted. Found to have severe malnutrition due to persistent nausea and vomiting. Diet / supplements as tolerated. (11) Do not resuscitate status: Per patient's wishes. (12) DVT prophylaxis: No anticoagulants initially because of surgery. SCDs. Add SQ heparin tomorrow. Ambulate. (13) Discharge planning issues: Discharge disposition to be determined. Family lives by herself. Has difficulty doing ADL's. Lonely. May benefit from SNF or personal care once her condition improves. Pt willing to consider options, but concerned about financial limitations. Consult Case Management. Family Medicine follow-up with Dr. Mendez. Subjective Recheck for multiple problems. Patient seen in their room around 1700. On clear liquid diet. Several episodes of nausea and vomiting. Has some postop pain. Passing some flatus, but no stool for several days. Review of Systems: Constitutional- no fever. Cardiac- no chest pain. Pulmonary- no cough or SOB. GI- as noted above. - no urinary symptoms. Otherwise, as noted above. Physical Exam Constitutional: no acute distress Respiratory: no respiratory distress Auscultation: lungs clear to auscultation bilaterally Cardiovascular: Rate/Rhythm: regular rate and regular rhythm Heart Sounds: no gallop, no murmur and no cardiac rub Vessels: no JVD Extremities: no calf tenderness and no edema Gastrointestinal (Abdomen): normal bowel sounds, soft, nontender, no hepatosplenomegaly Inspection/Auscultation: + abnormal bowel sounds (quiet) Percussion/Palpation: abdomen soft Skin: no rashes, warm and dry Neurologic: Motor/Sensory: + tremor (resting) Psychiatric: Orientation: alert and oriented x 3 Results & Data Vital Signs (Past 12 Hours) Vital Signs Temp Pulse Resp BP Pulse Ox 08/24/19 15:11 36.7 C 90 18 164/89 H 100 08/24/19 11:35 36.3 C L 85 17 165/92 H 98 Laboratory Results 08/24/19 04:32 08/24/19 04:32
[2019-08-24] MEDS ORDERED: GLYCERIN ADULT 12 EA SUPP PR PRN (23:04)
[2019-08-24] MEDS ORDERED: SOD PHOSPHATE/SOD BIPHOSPHATE ENEMA 132 ML BTL PR PRN (23:04)
[2019-08-24] MEDS ORDERED: BISACODYL 10 MG SUPP PR PRN (23:04)
[2019-08-25] MEDS: D5W AND 1/2NSS + 20MEQ KCL 20 MEQ/1,000 ML BAG IV SCH ×2 (03:25→15:59)
[2019-08-25 06:25] LABS: Hemoglobin 16.4 g/dL (12.0-16.0); Mean Corpuscular Hemoglobin 32.7 pg (25-34); Mean Corpuscular Hgb Conc 35.7 g/dL (32-36); Mean Corpuscular Volume 91.6 fL (80-100); Mean Platelet Volume 11.2 fL (7.4-10.4); Platelet Count 191 K/uL (130-400); RDW Coefficient of Variation 14.7 % (11.5-14.5); RDW Standard Deviation 49.5 fL (36.4-46.3); Red Blood Count 5.02 M/uL (4.2-5.4); White Blood Count 6.96 K/uL (4.8-10.8)
[2019-08-25 06:34] LABS: INR 1.1 (0.9-1.1); Partial Thromboplastin Ratio 0.9; Partial Thromboplastin Time 25.7 Seconds (21.0-31.0); Prothrombin Time 11.5 Seconds (9.0-12.0)
[2019-08-25 07:00] LABS: BUN Creatinine Ratio 4.1 (10-20); Creatinine Clr Calc Pharmacy 66.6 ml/min; Est GFR (Non-African American) 84.6; Magnesium 1.3 mg/dl (1.8-2.4); Potassium 3.7 mmol/L (3.5-5.1)
--- NOTE | 2019-08-25 08:22 | XRay Report ---
XR KUB/Abdomen 1 view CLINICAL HISTORY: 79 years-old Female presenting with constipation. TECHNIQUE: Single supine view of the abdomen was obtained. COMPARISON: 06/14/2019. FINDINGS: Mild gaseous distention of small and large bowel. Nonobstructive bowel gas pattern. No significant st ool burden is appreciated. No gross pneumoperitoneum. Cholecystectomy clips noted. Allowing for bowel gas and stool, no calcifications to suggest nephrolithiasis. Degenerative changes of the spine. Lumbar fusion hardware. Sclerosis along the left iliac crest may r elate to an underlying bone island or posttraumatic or postsurgical change. Lung bases clear. IMPRESSION: 1. No radiographic evidence of a significant stool burden. Electronically signed by: Vaughn Dominguez M.D. 08/25/2019 8:20 AM
[2019-08-25] MEDS: INSULIN ASPART 100 UNITS/ML 3 ML PEN SC SCH ×4 (09:13→21:11)
[2019-08-25] MEDS: ENOXAPARIN INJ 40 MG/0.4 ML SYR SQ SCH (09:14)
[2019-08-25] MEDS: DOCUSATE SODIUM 100 MG CAP PO SCH ×2 (09:14→20:29)
[2019-08-25] MEDS: CARBIDOPA/LEVODOPA 25/100MG TAB PO SCH ×3 (09:14→20:29)
[2019-08-25] MEDS: PRIMIDONE 50 MG TAB PO SCH ×2 (09:14→20:29)
[2019-08-25] MEDS: ASPIRIN 81 MG ECTAB PO SCH (09:14)
[2019-08-25] MEDS: POLYETHYLENE (MIRALAX) 17 GM PACK PO SCH ×2 (09:15→20:29)
[2019-08-25] MEDS: BuPROPion SR 150 MG TABCR PO SCH ×2 (09:15→20:29)
[2019-08-25] MEDS: PANTOprazole 40 MG TAB PO SCH ×2 (09:15→20:29)
[2019-08-25] MEDS: MAGNESIUM SULFATE / D5W 1 GM/100 ML BAG IV SCH ×2 (10:19→11:37)
--- NOTE | 2019-08-25 11:37 | Surgery Progress Note ---
Date of Service pt is doing fine, no abdominal pain, no nausea, no vomiting, August 25, 2019 Assessment & Plan (1) Intractable nausea and vomiting: POD # 1 s/p laparoscopic cholecystectomy -vitals stable, afebrile - +persistent nausea - post op pain minimal - passing flatus, no bowel movement prior to admission Plan: advance diet as tolerated continue pain management as needed encourage ambulation continue daily miralax, consider another suppository Dr. Cash recommended colonoscopy as an outpatient since patient has never had one, patient states she does not want to have colonoscopy but will think about it. continue medical management Dr. Cash has seen patient, agrees with above. 08/25/2019 11:35AM doing fine, consult geriatric case manager for possible 2 weeks usp, keep the dressing on for 2 days, she can take a shower on 08/27/2019, Follow up me in 2 weeks, , thanks, sign off today, please call with questions, Supervising Physician Co-Signing Physician Notes I, Dr. Trent Acosta, have seen and examined the patient with physician broker assistant and would like to comment that: On physical exam: General: alert and oriented Neuro/Psych: patient has involuntary movements of lower jaw which she attributes to Parkinson's Heart: regular rate, regular rhythm Lungs: clear to auscultation bilaterally Abdomen: soft, positive bowel sounds Extremities: no edema This is a 79 year old Female with Parkinson Disease and on physical exam has clear features of involuntary movements of lower jaw. She presents to the hospital for intractable nausea and vomiting with some current relief from vom iting but continues to have very bad nausea symptoms. She reports that symptoms of nausea and vomiting has been a problem for her since May 2018. She has been found in the past to have chronic acalculous cholecystitis based on recent outpatient HIDA Scan 07/26/19 with poor gallbladder function. On exam, patient localizes abdominal discomfort more to the left side, rather than right side where the gallbladder is. Patient expresses concerns whether a cholecystectomy is needed to relieve nausea and vomiting symptoms. At this time, hospitalist admits the patient to assist with temporary relief of symptoms with anti-emetics and IV fluids. Another possibility that patient's nausea and vomiting may be symptoms of Parkinson's disease versus medication side effects to treat Parkinson's. Patient recalls having multiple medical changes in the recent past. However, intervention to remove the gallbladder will rule out chronic acalculous cholecystitis as possible contribution to current symptoms. Will seek general surgery assessment agree with other assessment and plans of other health issues as documented by physician broker assistant including management of hypertension and diabetes mellitus and depression with anxiety My colleague Dr. Shook will be taking over the care of the patient as the hospitalist starting on 08/22/19 Subjective Still with nausea and vomited supper last night No abdominal pain Has not had bowel movement for about 5 to 6 days Physical Exam Constitutional: WD/WN, vitals as above well developed and well nourished Neck: trachea midline, no thyromegaly Respiratory: normal respiratory effort, lungs clear to auscultation Cardiovascular: RRR, no murmur, no edema Gastrointestinal (Abdomen): Percussion/Palpation: abdomen soft no tenderness, all incisions intact Musculoskeletal: no cyanosis or clubbing, extremities motor strength 5/5 Skin: no rashes, warm and dry Neurologic: awake Psychiatric: Orientation: alert and oriented x 3 Results & Data Vital Signs (Past 12 Hours) Vital Signs Temp Pulse Resp BP Pulse Ox 08/25/19 07:16 36.6 C 95 H 16 153/87 H 97 Laboratory Results Abnormal lab results 08/24/19 08/25/19 08/25/19 Range/Units 12:02 05:47 05:47 Hgb 16.4 H (12.0-16.0) g/dL RDW Std Deviation 49.5 H (36.4-46.3) fL RDW Coeff of Yareli 14.7 H (11.5-14.5) % MPV 11.2 H (7.4-10.4) fL Chloride 108 H (98-107) mmol/L BUN 3 L (7-18) mg/dl BUN/Creatinine Ratio 4.1 L (10-20) Glucose 110 H (70-99) mg/dl POC Glucose 106 H (70-99) Magnesium 1.3 L (1.8-2.4) mg/dl
[2019-08-25] MEDS ORDERED: HydrALAZINE 10 MG TAB PO PRN (14:15)
--- NOTE | 2019-08-25 19:20 | Hospitalist Progress Note ---
Date of Service August 25, 2019 Assessment & Plan (1) Intractable nausea and vomiting: Chronic nausea and vomiting. Attributed to gastroparesis previously--Likely due to diabetes, Parkinson's disease Recent abnormal HIDA scan consistent with chronic cholecystitis. Continue gastroparesis diet S/P Lap cholecystectomy by Dr. Cash. Not good candidate for metoclopramide. Advance diet as tolerated Consider GI eval if no improvement (2) Chronic cholecystitis: S/P Laparoscopic cholecystectomy performed by Dr. Cash. POD # 3 Pain control Bowel regimen for constipation Keep dressing for 2 days, can shower on 08/27/2019 Needs follow-up with surgery in 2 weeks upon discharge (3) Constipation: Severe constipation Had multiple remedies, including MiraLAX. Continue bowel regimen Encourage ambulation Needs colonoscopy as outpatient--patient currently not interested Consider GI eval if no improvement (4) GERD (gastroesophageal reflux disease): Continue PPI. (5) Diabetes mellitus, type II: H/O diet-controlled diabetes mellitus. HbA1C: 6.4 on 04/26/2019. Diabetic diet Continue insulin sliding scale (6) Dyslipidemia: Continue atorvastatin. (7) Parkinson disease: Continue primidone, carbidopa/levodopa. (8) Hypokalemia: Resolved Monitor electrolytes and replace as needed (9) Abnormal urinalysis: Urine culture grew gamma strep and Gardnerella-like bacilli.--Likely contamination UTI unlikely Antibiotics discontinued (10) Malnutrition: Malnutrition due to chronic nausea and vomiting and poor oral intake. Weight decreased from 86 kg in May to 73 kg Line Lead consulted. Severe malnutrition due to above Diet / supplements as tolerated. (11) Do not resuscitate status: Per patient's wishes. (12) DVT prophylaxis: Lovenox SQ (13) Discharge planning issues: Discharge disposition to be determined. lives by herself. Has difficulty doing ADL's. Lonely. May need SNF placement Consult Case Management Subjective Patient is seen and examined at bedside Reports nausea but no vomiting today Denies any abdominal pain, chest pain, shortness of breath, dizziness Also reports constipation + flatus Review of Systems Review of Systems: All systems reviewed & are unremarkable except as noted in HPI & below Physical Exam Physical Exam: Physical Exam: Vitals signs as noted above General Appearance:Moderately built and nourished, no apparent distress Head: normocephalic, Atraumatic Eyes: normal inspection, EOMI Neck: supple, Trachea midline Respiratory/Chest: Normal breath sounds, CTA Cardiovascular: S1, S2, No murmur Abdomen/GI:Soft, Non tender, decreased Bowel sounds, +Surgical site in dressing Extremities/Musculoskelatal:normal inspection, no edema Neurologic/Psych:AAOX3, grossly no focal neurological deficits, +resting tremor Skin: normal color, warm Results & Data Vital Signs (Past 12 Hours) Vital Signs Temp Pulse Resp BP Pulse Ox 08/25/19 15:01 36.4 C L 83 17 156/85 H 97 08/25/19 11:45 84 17 167/90 H 97 08/25/19 07:16 36.6 C 95 H 16 153/87 H 97 Laboratory Results Short CBC 08/25/19 Range/Units 05:47 WBC 6.96 (4.8-10.8) K/uL Hgb 16.4 H (12.0-16.0) g/dL Hct 46.0 (37-47) % Plt Count 191 (130-400) K/uL BMP 08/25/19 05:47 Sodium 144 Potassium 3.7 Chloride 108 H Carbon Dioxide 28 BUN 3 L Creatinine 0.62 Glucose 110 H Calcium 9.0
[2019-08-25] MEDS: ALPRAZolam 0.25 MG TABLET PO PRN (21:11)
[2019-08-26] MEDS: D5W AND 1/2NSS + 20MEQ KCL 20 MEQ/1,000 ML BAG IV SCH ×2 (05:42→23:17)
[2019-08-26 07:42] LABS: BUN Creatinine Ratio 13.4 (10-20); Est GFR (African American) 99.6; Magnesium 1.8 mg/dl (1.8-2.4); Potassium 3.7 mmol/L (3.5-5.1)
[2019-08-26] MEDS: POLYETHYLENE (MIRALAX) 17 GM PACK PO SCH ×2 (09:32→21:04)
[2019-08-26] MEDS: DOCUSATE SODIUM 100 MG CAP PO SCH ×2 (09:32→21:04)
[2019-08-26] MEDS: PRIMIDONE 50 MG TAB PO SCH ×2 (09:32→21:04)
[2019-08-26] MEDS: ASPIRIN 81 MG ECTAB PO SCH (09:32)
[2019-08-26] MEDS: PANTOprazole 40 MG TAB PO SCH ×2 (09:33→21:04)
[2019-08-26] MEDS: CARBIDOPA/LEVODOPA 25/100MG TAB PO SCH ×3 (09:33→21:04)
[2019-08-26] MEDS: BuPROPion SR 150 MG TABCR PO SCH ×2 (09:33→21:04)
[2019-08-26] MEDS: ENOXAPARIN INJ 40 MG/0.4 ML SYR SQ SCH (09:34)
[2019-08-26] MEDS: INSULIN ASPART 100 UNITS/ML 3 ML PEN SC SCH ×4 (09:35→20:42)
--- NOTE | 2019-08-26 10:38 | Gastrointestinal Consultation ---
Date of Consultation August 26, 2019 Assessment & Plan (1) Constipation: Miralax, one dose every day. 6-8 glasses of water/day. Present on Admission?: Yes (2) Nausea: Likely secondary to diabetic gastroparesis, worsened by constipation and now postoperative nausea. Plan: 1. Antiemetics 2. Small meals. 3. No indication for repeat endoscopy at this time. 4. GI will sign off. Please notify us if new, worsened GI issues. Present on Admission?: Yes Supervising Physician Co-Signing Physician Notes I performed a history and physical examination of the patient, including specifically on physical exam - soft, nontender abdomen. I have discussed the patient's management with Latasha. Please refer to the nurse practitioner's note for the documented findings and plan of care. Feels better already. Moving bowel. No abdominal pain with recent normal EGD. PRN Antiemetics. Small frequent meals. GES as OP. Recall Gi if needed. History of Present Illness Reason for Consultation: nausea, vomiting, constipation Requesting Physician: Dr. Cruz Attending Physician: Nestor Cruz MD History of Present Illness Ms. Holly Ward is an 79 yr old female pt of Dr. Mendez with a hx of Parkinson's, GERD, hyperlipidemia, chronic constipation who underwent lap choley on 08/21/19. GI is consulted for nausea, vomiting, chronic constipation. GI was consulted for nausea/vomiting in May thought secondary to diabetic gastroparesis or med related. EGD at that time was without cause of her symptoms and a gastroparesis diet was recommended. Miralax was recommended for constipation. The pt tells us that she continues with constipation but that she doesn't usually remember to take Miralax until she hasn't had a BM for several days and is bloated. Also, she doesn't like to take a laxative because it causes, "a blow out." Today, she took a dose of Miralax which affected one formed stool. Regarding the nausea, she tells us that it is persistent, present every day since May 2018. If nausea is present, eating worsens the nausea. Typically doesn't vomit other times of day. She sometimes vomits back up the food that she eats for breakfast. No melena or hematochezia. Allergies Allergy/AdvReac Type Severity Reaction Status Date / Time codeine Allergy Severe SEVERE Verified 08/21/19 14:07 HEADACHE, NAUSEA & VOMITING morphine Allergy Severe SEVERE Verified 08/21/19 14:07 HEADACHE, NAUSEA, & VOMITING pentazocine [From [facility]] Allergy Severe DECREASED Verified 08/21/19 14:07 MOTOR SKILL, SOB. Home Medications Home Medications Medication Instructions Recorded Confirmed Type alprazolam 0.25 mg PO TID PRN 10/14/18 08/21/19 History aspirin [Aspir-81] 81 mg PO QAM 10/14/18 08/21/19 History omeprazole 20 mg PO BID 10/14/18 08/21/19 History bupropion HCl 150 mg PO BID 05/31/19 08/21/19 History carbidopa-levodopa 1 tab PO TID 05/31/19 08/21/19 History primidone 50 mg PO BID 05/31/19 08/21/19 History polyethylene glycol 3350 [Miralax] 17 g PO DAILY #1 ea 06/16/19 08/21/19 Rx Patient History Medical History Do not resuscitate status (Chronic) Malnutrition (Chronic) Hypokalemia (Chronic) GERD (gastroesophageal reflux disease) (Chronic) Intractable nausea and vomiting (Chronic) Constipation (Chronic) Anxiety and depression (Chronic) HTN (hypertension) (Chronic) Diabetes mellitus, type II (Chronic) Dyslipidemia (Chronic) Parkinson disease (Chronic) Tremor (Chronic) Gastroesophageal reflux disease (Inactive) Chronic back pain Surgical History History of cervical spinal surgery (Chronic) X 2 History of lumbosacral spine surgery (Chronic) X2 History of tubal ligation (Chronic) History of open reduction and internal fixation (ORIF) procedure RIGHT WRIST Hx of cataract surgery RIGHT AND LEFT Hx of tonsillectomy Family History Father , 51 Myocardial infarction Hypertension Social History Preferred Language: Maltese Communication Ability: Effective Radio Intelligence Operator Required: No Beliefs That Will Affect Care: None marital status: Current Living Situation: Alone Other Information That Helps Us Care for You: No Feels Safe at Home: Yes Safety Concerns: Feels Safe At This Time Smoking Status: Never smoker Do You Dip or Chew Tobacco: No ; Second Hand Exposure: No ; Tobacco Cessation Education Requested by Patient: No Hx Alcohol Use: Yes Alcohol type: hard liquor Alcohol Intake Frequency: Rarely Hx Substance Use: No Review of Systems Review of Systems: ROS: Gen: + weakness, no fevers, denies weight loss Eyes: No eye redness, or pain, no recent vision changes Resp: No SOB, no cough Cardio: No palpitations/irregular beats, no chest pain GI: + nausea, minimal if any abdominal pain : Denies pain on urination Skin: No jaundice, itching or new rashes Neuro: + chronic tremor Physical Exam Constitutional: WD/WN, vitals as above overweight; slightly unsteady on ambulation Eyes: PERRL, conjunctivae normal, anicteric sclerae ENMT: external ear and nose normal, oropharynx normal Neck: trachea midline, no thyromegaly Respiratory: normal respiratory effort, lungs clear to auscultation Cardiovascular: RRR, no murmur, no edema Gastrointestinal (Abdomen): normal bowel sounds, soft, nontender, no hepatosplenomegaly Skin: no rashes, warm and dry Neurologic: PERRL, EOMI, accommodation nl, no face palsy, no dysarthria Motor/Sensory: + tremor Psychiatric: A+Ox3, euthymic affect Lymphatic: no cervical or axillary lymphadenopathy Results & Data Vital Signs (Past 12 Hours) Vital Signs Temp Pulse Resp BP BP Pulse Ox 08/26/19 07:58 36.4 C L 78 16 160/80 H 95 08/26/19 06:20 36.6 C 90 19 111/71 92 08/25/19 23:30 36.6 C 100 H 19 145/76 H 94 Diagnostic Findings GB US on 08/21/19: 1. Trace gallbladder sludge without cholelithiasis or sonographic evidence of acute cholecystitis. 2. No biliary ductal dilation. KUB 08/21/19: 1. No radiographic evidence of a significant stool burden. Prior CT with IV contrast in March 2019 for N/V with: 1. No acute intra-abdominal pathology. 2. Punctate right nephrolithiasis versus renovascular calcification. No hydronephrosis. 3. Limited diverticulosis coli. No evidence of diverticulitis. EGD May 2019: - Normal upper third of esophagus, middle third of esophagus and lower third of esophagus. - Z-line regular, 35 cm from the incisors. - Normal mucosa was found in the entire stomach. - Multiple gastric polyps consistent with fundic gland polyps. - Normal examined duodenum. Recommendation: - Gastroparesis diet.
--- NOTE | 2019-08-26 17:45 | Hospitalist Progress Note ---
Date of Service August 26, 2019 Assessment & Plan (1) Intractable nausea and vomiting: Chronic nausea and vomiting. Attributed to gastroparesis previously--Likely due to diabetes, Parkinson's disease Recent abnormal HIDA scan consistent with chronic cholecystitis. Continue gastroparesis diet S/P Lap cholecystectomy by Dr. Cash. Not good candidate for metoclopramide. Tolerating diet Appreciate GI input (2) Chronic cholecystitis: S/P Laparoscopic cholecystectomy performed by Dr. Cash. POD # 4 Pain control Bowel regimen for constipation Keep dressing for 2 days, can shower on 08/27/2019 Needs follow-up with surgery in 2 weeks upon discharge (3) Constipation: Severe constipation Had multiple remedies, including MiraLAX. Continue bowel regimen Encourage ambulation, increase p.o. fluid intake Needs colonoscopy as outpatient--patient currently not interested Appreciate GI input (4) GERD (gastroesophageal reflux disease): Continue PPI. (5) Diabetes mellitus, type II: H/O diet-controlled diabetes mellitus. HbA1C: 6.4 on 04/26/2019. Diabetic diet Continue insulin sliding scale (6) Dyslipidemia: Continue atorvastatin. (7) Parkinson disease: Continue primidone, carbidopa/levodopa. (8) Hypokalemia: Resolved Monitor electrolytes and replace as needed (9) Abnormal urinalysis: Urine culture grew gamma strep and Gardnerella-like bacilli.--Likely contamination UTI unlikely Antibiotics discontinued (10) Malnutrition: Malnutrition due to chronic nausea and vomiting and poor oral intake. Weight decreased from 86 kg in May to 73 kg Manager Food Safety consulted. Severe malnutrition due to above Diet / supplements as tolerated. (11) Do not resuscitate status: Per patient's wishes. (12) DVT prophylaxis: Lovenox SQ (13) Discharge planning issues: Discharge disposition: Refuses any rehab, home health needs lives by herself. Case Management on board Likely discharge home in next 24 to 48 hours Subjective Patient is seen and examined at bedside Reports nausea but denies any vomiting as per patient today Had bowel movement Denies any abdominal pain Also denies any chest pain, shortness of breath, dizziness Eager to get discharged Review of Systems Review of Systems: All systems reviewed & are unremarkable except as noted in HPI & below Physical Exam Physical Exam: Physical Exam: Vitals signs as noted above General Appearance:Moderately built and nourished, no apparent distress Head: normocephalic, Atraumatic Eyes: normal inspection, EOMI Neck: supple, Trachea midline Respiratory/Chest: Normal breath sounds, CTA Cardiovascular: S1, S2, No murmur Abdomen/GI:Soft, Non tender, decreased Bowel sounds, +Surgical site in dressing Extremities/Musculoskelatal:normal inspection, no edema Neurologic/Psych:AAOX3, grossly no focal neurological deficits, +resting tremor Skin: normal color, warm Results & Data Vital Signs (Past 12 Hours) Vital Signs Temp Pulse Resp BP Pulse Ox 08/26/19 15:17 36.4 C L 83 17 148/83 H 96 08/26/19 11:25 36.6 C 93 H 16 140/80 97 08/26/19 07:58 36.4 C L 78 16 160/80 H 95 08/26/19 06:20 36.6 C 90 19 111/71 92 Laboratory Results [facility] 08/26/19 06:38 Sodium 140 Potassium 3.7 Chloride 109 H Carbon Dioxide 26 BUN 8 D Creatinine 0.59 L Glucose 110 H Calcium 9.0
[2019-08-26] MEDS: ALPRAZolam 0.25 MG TABLET PO PRN (21:04)
[2019-08-27 07:30] LABS: BUN Creatinine Ratio 12.8 (10-20); Calcium 9.1 mg/dl (8.5-10.1); Creatinine Clr Calc Pharmacy 68.8 ml/min; Est GFR (African American) 99.1; Est GFR (Non-African American) 85.5; Potassium 3.7 mmol/L (3.5-5.1)
[2019-08-27] MEDS: ASPIRIN 81 MG ECTAB PO SCH (08:53)
[2019-08-27] MEDS: ENOXAPARIN INJ 40 MG/0.4 ML SYR SQ SCH (08:53)
[2019-08-27] MEDS: POLYETHYLENE (MIRALAX) 17 GM PACK PO SCH (08:53)
[2019-08-27] MEDS: PRIMIDONE 50 MG TAB PO SCH (08:54)
[2019-08-27] MEDS: PANTOprazole 40 MG TAB PO SCH (08:54)
[2019-08-27] MEDS: BuPROPion SR 150 MG TABCR PO SCH (08:54)
[2019-08-27] MEDS: DOCUSATE SODIUM 100 MG CAP PO SCH (08:54)
[2019-08-27] MEDS: CARBIDOPA/LEVODOPA 25/100MG TAB PO SCH ×2 (08:55→13:32)
[2019-08-27] MEDS: INSULIN ASPART 100 UNITS/ML 3 ML PEN SC SCH ×2 (09:01→13:33)
[2019-08-27 12:09] VITALS: TEMP 97.7; O2SAT 96
--- NOTE | 2019-08-27 14:06 | Hospitalist Progress Note ---
Date of Service August 27, 2019 Assessment & Plan (1) Intractable nausea and vomiting: Chronic nausea and vomiting. Attributed to gastroparesis previously--Likely due to diabetes, Parkinson's disease Recent abnormal HIDA scan consistent with chronic cholecystitis. Continue gastroparesis diet S/P Lap cholecystectomy by Dr. Cash. Not good candidate for metoclopramide. Tolerated diet Appreciate GI input Needs follow up with GI upon discharge (2) Chronic cholecystitis: S/P Laparoscopic cholecystectomy performed by Dr. Cash. POD # 5 Pain control Bowel regimen for constipation Keep dressing for 2 days, can shower on 08/27/2019 Needs follow-up with surgery in 2 weeks upon discharge Doing well (3) Constipation: Severe constipation Had multiple remedies, including MiraLAX. Continue bowel regimen Encourage ambulation, increase p.o. fluid intake Needs colonoscopy as outpatient--patient currently not interested Appreciate GI input Constipation resolved (4) GERD (gastroesophageal reflux disease): Continue PPI. (5) Diabetes mellitus, type II: H/O diet-controlled diabetes mellitus. HbA1C: 6.4 on 04/26/2019. Diabetic diet Continue insulin sliding scale (6) Dyslipidemia: Continue atorvastatin. (7) Parkinson disease: Continue primidone, carbidopa/levodopa. (8) Hypokalemia: Resolved Monitor electrolytes and replace as needed (9) Abnormal urinalysis: Urine culture grew gamma strep and Gardnerella-like bacilli.--Likely contamination UTI unlikely Antibiotics discontinued (10) Malnutrition: Malnutrition due to chronic nausea and vomiting and poor oral intake. Weight decreased from 86 kg in May to 73 kg Complex Commercial Litigation Paralegal consulted. Severe malnutrition due to above Diet / supplements as tolerated. (11) Do not resuscitate status: Per patient's wishes. (12) DVT prophylaxis: Lovenox SQ (13) Discharge planning issues: Discharge disposition: Refuses any rehab, home health needs lives by herself. Case Management on board Plan to discharge hoe today Subjective Patient is seen and examined at bedside States having intermittent nausea which is chronic Denies any chest pain, SOB, vomiting, abd pain, dizziness Tolerated diet Constipation resolved Eager to get discharged Refused rehab/Home Health services Review of Systems Review of Systems: All systems reviewed & are unremarkable except as noted in HPI & below Physical Exam Physical Exam: Physical Exam: Vitals signs as noted above General Appearance:Moderately built and nourished, no apparent distress Head: normocephalic, Atraumatic Eyes: normal inspection, EOMI Neck: supple, Trachea midline Respiratory/Chest: Normal breath sounds, CTA Cardiovascular: S1, S2, No murmur Abdomen/GI:Soft, Non tender, decreased Bowel sounds, +Surgical site in dressing Extremities/Musculoskelatal:normal inspection, no edema Neurologic/Psych:AAOX3, grossly no focal neurological deficits, +resting tremor Skin: normal color, warm Results & Data Vital Signs (Past 12 Hours) Vital Signs Temp Pulse Pulse Resp BP Pulse Ox 08/27/19 12:08 36.5 C 83 18 142/91 H 96 08/27/19 08:00 36.6 C 83 20 160/90 H 97 08/27/19 06:58 36.6 C 78 18 155/82 H 94 Laboratory Results [facility] 08/27/19 06:08 Sodium 143 Potassium 3.7 Chloride 108 H Carbon Dioxide 29 BUN 8 Creatinine 0.60 Glucose 103 H Calcium 9.1
--- NOTE | 2019-08-27 14:14 | Discharge Summary ---
Date of Service August 27, 2019 Admission HPI Per Admitting Provider This is a 79-year-old female who has significant past medical history of T2DM, Parkinson's disease, HTN, GERD, chronic back pain, history of PE 30 years ago, recurrent major depression with anxiety who presents to [facility] ED secondary to persistent nausea for months. She has been worked up in the outpatient setting with GI and general surgery. She had a HIDA scan done earlier this month which revealed EF less than 9% concerning for chronic acalculous cholecystitis. She is scheduled for a laparoscopic cholecystectomy on 08/23/2019 Dr. Cash. For the past several months she has been having significant nausea. She has lost 20 to 30 pounds since May. She has difficulty keeping down oral intake, including pills. Her appetite is otherwise been diminished. She lives alone at home in an apartment. Drove herself here today. She denies any fever, chills, sweats, lightheadedness, dizziness, syncope, chest pain, shortness of breath, palpitations, abdominal pain, hematemesis, diarrhea, melena, hematochezia. She feels overall she has had decreased urinary output secondary to poor intake and overall feels dehydrated. Denies any dysuria, hematuria, increased urgency or frequency with urination. She is very anxious at baseline. She also has resting tremor and lipsmacking tremor, which she says worsens with her anxiety. She does have a history of Parkinson's disease in which she takes Sinemet and primidone. She initially thought symptoms may be secondary to medications and stopped primidone x5 days. Symptoms persisted so then she restarted. She has been taking all her carbidopa levodopa intermittently without improvement of her symptoms. Admission Exam Per Admitting Provider constitutional: WD/WN, elderly, female, appears anxious, vitals as above, NAD, sitting up in bed, pleasant, conversing easily Head: Normocephalic, Atraumatic Eyes: PERRL, conjunctivae normal, anicteric sclerae ENMT: external ear and nose normal, oropharynx with dry mucous membranes Neck: trachea midline, no thyromegaly normal visual inspection Respiratory: normal respiratory effort, lungs clear to auscultation, no wheeze, rales, rhonchi. Normal insp/exp effort, no accessory muscle use Cardiovascular: RRR, no murmur, no edema Vessels: no JVD or carotid bruit Chest: normal inspection of chest Abdomen: normal bowel sounds, soft, nontender, no hepatosplenomegaly Musculoskeletal: no cyanosis or clubbing, extremities motor strength 5/5 Skin: no rashes, warm and dry mild turgor Neurologic: + lip smacking tremor, pt very restless, PERRL, EOMI, accommodation nl, no face palsy, no dysarthria CN's II-XI intact bilaterally and moves all extremities Psychiatric: A+Ox3, euthymic affect Lymphatic: no cervical or axillary lymphadenopathy : deferred Principal Diagnosis Chronic cholecystitis S/P cholecystectomy Gastroparesis Discharge Data Allergies Allergy/AdvReac Type Severity Reaction Status Date / Time codeine Allergy Severe SEVERE Verified 08/21/19 14:07 HEADACHE, NAUSEA & VOMITING morphine Allergy Severe SEVERE Verified 08/21/19 14:07 HEADACHE, NAUSEA, & VOMITING pentazocine [From [facility]] Allergy Severe DECREASED Verified 08/21/19 14:07 MOTOR SKILL, SOB. Consultations 08/21/19 15:14 ED Decision to Admit Stat 08/21/19 15:54 Consult General Surgery Routine 08/21/19 16:59 Consult Case Management - Discharge Planning Routine 08/26/19 09:37 Consult Gastroenterology Routine Procedures Performed Operation Date: 08/23/19 07:00 Actual Procedures p Laparoscopic Cholecystectomy(Not Applicable) - Brenden Cash MD Gall Bladder USD: 1. Trace gallbladder sludge without cholelithiasis or sonographic evidence of acute cholecystitis. 2. No biliary ductal dilation. KUB: No radiographic evidence of a significant stool burden. Ordered Studies 08/21/19 13:33 US gallbladder Stat Hospital Course (1) Intractable nausea and vomiting: Chronic nausea and vomiting. Attributed to gastroparesis previously--Likely due to diabetes, Parkinson's disease Recent abnormal HIDA scan consistent with chronic cholecystitis. Continue gastroparesis diet S/P Lap cholecystectomy by Dr. Cash. Not good candidate for metoclopramide. Tolerated diet Appreciate GI input Needs follow up with GI upon discharge (2) Chronic cholecystitis: S/P Laparoscopic cholecystectomy performed by Dr. Cash. POD # 5 Pain control Bowel regimen for constipation Keep dressing for 2 days, can shower on 08/27/2019 Needs follow-up with surgery in 2 weeks upon discharge Doing well (3) Constipation: Severe constipation Had multiple remedies, including MiraLAX. Continue bowel regimen Encourage ambulation, increase p.o. fluid intake Needs colonoscopy as outpatient--patient currently not interested Appreciate GI input Constipation resolved (4) GERD (gastroesophageal reflux disease): Continue PPI. (5) Diabetes mellitus, type II: H/O diet-controlled diabetes mellitus. HbA1C: 6.4 on 04/26/2019. Diabetic diet Continue insulin sliding scale (6) Dyslipidemia: Continue atorvastatin. (7) Parkinson disease: Continue primidone, carbidopa/levodopa. (8) Hypokalemia: Resolved Monitor electrolytes and replace as needed (9) Abnormal urinalysis: Urine culture grew gamma strep and Gardnerella-like bacilli.--Likely contamination UTI unlikely Antibiotics discontinued (10) Malnutrition: Malnutrition due to chronic nausea and vomiting and poor oral intake. Weight decreased from 86 kg in May to 73 kg Printing Mechanist consulted. Severe malnutrition due to above Diet / supplements as tolerated. (11) Do not resuscitate status: Per patient's wishes. (12) DVT prophylaxis: Lovenox SQ (13) Discharge planning issues: Discharge disposition: Refuses any rehab, home health needs lives by herself. Case Management on board Plan to discharge hoe today Total Time Total Time Spent Total Time Spent (In Minutes): 38 minutes Total Time Includes: Examination of the Patient, Discharge Planning, Medication Reconciliation, Communication With Other Providers and Other Discharge Plan Discharge Items Patient Disposition: Home - Self-Care Reason For Visit: CHRONIC ACALCULOUS CHOLECYSTITIS, PERSISTENT NAUSE Discharge Diagnosis: Chronic cholecystitis S/P cholecystectomy Gastroparesis Activity: Resume your previous activity Exercise/Sports: Gradually increase as tolerated Non-emergency contact: Primary Care Provider, Surgeon and Bottle Filler Call non-emergency contact if: you have any medication questions, your symptoms worsen, your pain is not controlled, your pain is worsening, your pain is unusual for you, your pain is concerning for you, you have a fever, your wound has increased redness, your wound has increased drainage and your wound pain has increased Follow-up/Referrals: Ori Mendez MD [Primary Care Provider] - Dietitian Info: Small frequent meals--gastroparesis diet Diet: Carb Consistent or DM2, Low Fiber and Low Fat Addtl Attending Provider Instructions: Follow-up with your primary care physician Dr. Simpson on September 01, 2019 at 12:45 PM Follow-up with your surgeon Dr. Cash on September 14, 2019 at 1:30 PM Follow-up with your wagon driver salesperson Cassie Jung PA-C on September 27, 2019 at 1:45 PM Seek immediate medical attention if your symptoms reoccur or worsen Surgical Discharge instructions: - no heavy lifting over 20 pounds for 4 weeks - no strenuous activity until cleared by surgeon - no submerging incisions underwater for 2 weeks (no bathing, swimming, or hot tubs) - no driving while taking narcotic pain medication or until pain free - You may shower 4 days after your surgery. Remove outer dressings and shower. - Leave steri strips on incisions for 7 days and then remove - Encouraged to walk multiple times daily to prevent blood clots from forming in your legs - May take extra strength Tylenol or Ibuprofen as needed for mild pain. - 650 mg of Tylenol every 6 hours as needed - 600 mg of Ibuprofen every 6 hours as needed (take with food) - Follow-up in surgical office in 2 weeks, please call office at [phone] if you do not already have a follow-up appointment. Pending Studies at Discharge: No Stand-Alone Forms: [facility], Opioid Pain Management, Work/School Release (Inpt), Smoking Cessation Medications and DC Order Prescriptions: New docusate sodium 100 mg Capsule 100 mg PO BID PRN (Reason: Constipation) Qty: 30 RF: 0 Continued bupropion HCl 150 mg tablet sustained-release 12 hr 150 mg PO BID RF: 0 carbidopa-levodopa 25-100 mg tablet 1 tab PO TID RF: 0 primidone 50 mg tablet 50 mg PO BID RF: 0 polyethylene glycol 3350 [Miralax] 17 gram Powder In Packet 17 g PO DAILY Qty: 1 RF: 0 aspirin [Aspir-81] 81 mg Tablet,Delayed Release (Dr/Ec) 81 mg PO QAM RF: 0 alprazolam 0.25 mg Tablet 0.25 mg PO TID PRN (Reason: Anxiety) RF: 0 omeprazole 20 mg Tablet,Delayed Release (Dr/Ec) 20 mg PO BID RF: 0 Discharge Orders: Discharge Order (Routine); Ordered 08/27/19 Ordered By: Nestor Veronica/Other Patient Handouts: Gastroparesis Admission Data Admit Date/Time: 08/21/19 15:54 Attending Provider: Nestor Cruz Admit Provider: Trent Acosta Primary Care Provider: Ori Mendez Other Providers: Trent Acosta ; Chuy Cain ; Marvin Atkins Other Interventions: Discharge Summary Assessment (RN) Last Done: 08/27/19 15:57 DC Date/Time DO NOT enter until pt leaves facility: 08/27/19 15:58
[2019-08-27 14:48] VITALS: BP 145/76; PULSE 78
== END 2019-08-27 15:58 | disposition home or self-care (01) | DRG 417 ==
LOC: ED 13:10 → 3N 15:54 → SUATTDRO 15:54 → 3N 16:39

== ENCOUNTER 2021-08-20 08:56 | Inpatient (IN) ==
[2021-08-20] MEDS ORDERED: SODIUM CHLORIDE 0.9% 500 ML IV STA (09:06)
[2021-08-20] MEDS ORDERED: ONDANSETRON INJ 2 MG/ML 2 ML VIAL IV STA (09:09)
--- NOTE | 2021-08-20 09:09 | Emergency Department Note ---
Impression & Plan Hip fracture, right Admission ED Provider Note HPI: The patient is a 81-year-old female with history of Parkinson disease, presents the emergency department with a chief complaint of a fall, patient was found on the ground this morning in her [facility]. On arrival here to the ED the patient is alert, she is in moderate distress secondary to pain, patient tells me that she remembers falling down but she does not remember exactly how. She believes she had a mechanical fall. Patient has limited range of motion/movement of the right lower extremity on arrival, complains of pain in the area of the right hip, denies any headache, denies any chest pain or shortne ss of breath. She is otherwise hypertensive but saturating well on room air on arrival. ROS: -MSK: Right hip pain status post fall *10 point review systems was conducted and is otherwise negative unless stated above *Outpatient medications and allergy history reviewed PE: General: Alert HEENT: Normocephalic, atraumatic, trachea midline Eyes: Extraocular eye movement is intact, no scleral erythema Pulmonary: Clear to auscultation bilaterally, no wheezing Cardio: Regular rate and rhythm GI: Abdomen is soft, nontender : No suprapubic tenderness MSK: Limited range of motion of the right lower extremity secondary to pain at the right hip, inability to flex at the right hip, there is a palpable dorsalis pedis pulse in the right lower extremity, left lower extremity is atraumatic wi th range of motion intact Skin: No evidence of rash, no other lacerations Neuro: Alert, no focal deficits, mild tremor of the mouth and bilateral upper extremities Psychiatric: Cooperative nurse monitoring: Order placed, patient is in sinus rhythm on the monitor EKG: Rate: 85 Rhythm: Sinus rhythm Intervals: Within normal limits ST changes: No ST elevation Time: 0925 Medical Decision Making: Patient presented to the emergency department after an apparent mechanical fall at her nursing facility. X-ray imaging does confirm a fracture of the right hip. CT imaging of the head does not show any evidence of acute intracranial bleeding, chest x-ray shows no acute process. Patient was given multiple doses of IV morphine for pain, she was given IV Zofran, her blood pressure did downtrend with pain medication. She remained otherwise hemodynamically stable and was more comfortable on my reassessment following pain medicine. Case was discussed with the on-call admitting team from [facility] hospitalist service, patient was admitted for orthopedic consultation and definitive care. Patient was admitted in stable condition. * Diagnosis: Right hip pain/fracture status post fall * Disposition: Admission Chuy Almazan DO Emergency Medicine Past Med/Surg History Medical History Anxiety and depression Chronic back pain Constipation Diabetes mellitus, type II Do not resuscitate status Dyslipidemia Gastroesophageal reflux disease GERD (gastroesophageal reflux disease) HTN (hypertension) Hx of diabetic gastroparesis Hx of migraines Hypokalemia Intractable nausea and vomiting Malnutrition Obesity Parkinson disease Tremor Surgical History History of cervical spinal surgery X 2 History of lumbosacral spine surgery X2 History of open reduction and internal fixation (ORIF) procedure RIGHT WRIST History of tubal ligation Hx of cataract surgery RIGHT AND LEFT Hx of cholecystectomy Hx of tonsillectomy Family History Father , 51 Myocardial infarction Hypertension Social History Smoking Status: Unknown if ever smoked Second Hand Exposure: No; Do You Dip or Chew Tobacco: No; Tobacco Cessation Education Requested by Patient: No Hx Alcohol Use: No Hx Substance Use: No Preferred Language: Irish Communication Ability: Effective Communication Ability Comment: feels a little fuzzy Heel Seat Fitter Machine Required: No Beliefs That Will Affect Care: None marital status: Current Living Situation: Personal Care Facility Current Living Situation Comment: [facility] Other Information That Helps Us Care for You: No Feels Safe at Home: Yes Safety Concerns: Feels Safe At This Time Assistive Devices: Walker Allergies Allergies Allergy/AdvReac Type Severity Reaction Status Date / Time codeine Allergy Severe SEVERE Verified 08/20/21 12:26 HEADACHE, NAUSEA & VOMITING morphine Allergy Severe SEVERE Verified 08/20/21 12:26 HEADACHE, NAUSEA, & VOMITING pentazocine [From [facility]ani] Allergy Severe DECREASED Verified 08/20/21 12:26 MOTOR SKILL, SOB. lactose Allergy Unknown ON MED Verified 08/20/21 12:26 LIST FROM [facility] Home Medications Medication Instructions Recorded Confirmed omeprazole 20 mg tablet,delayed 20 mg PO AMHS 12/26/18 11/01/21 release primidone 50 mg tablet 50 mg PO BID 05/31/19 08/20/21 melatonin 5 mg tablet 5 mg PO HS 02/13/20 08/20/21 naproxen sodium 220 mg tablet 220 mg PO Q12H PRN 02/13/20 08/20/21 (Aleve) aspirin 81 mg chewable tablet 81 mg PO DAILY 08/20/21 08/20/21 bisacodyl 10 mg rectal suppository 10 mg CO DAILY PRN 08/20/21 08/20/21 (Dulcolax (bisacodyl)) carbidopa ER 50 mg-levodopa 200 mg 1 tab PO BID 08/20/21 08/20/21 tablet,extended release clonazepam 0.5 mg tablet 0.5 mg PO BID 08/20/21 08/20/21 docusate sodium 100 mg capsule 100 mg PO BID PRN 08/20/21 08/20/21 (Colace) ergocalciferol (vitamin D2) 1,250 1,250 mcg PO DAILY 08/20/21 08/20/21 mcg (50,000 unit) capsule (Vitamin D2) escitalopram oxalate 20 mg tablet 20 mg PO DAILY 08/20/21 08/20/21 (Lexapro) lisinopril 10 mg tablet 10 mg PO DAILY 08/20/21 08/20/21 magnesium hydroxide 400 mg/5 mL 30 ml PO DAILY PRN 08/20/21 08/20/21 oral suspension (Milk of Magnesia) ondansetron 4 mg disintegrating 4 mg PO Q6H PRN 08/20/21 08/20/21 tablet sennosides 8.6 mg-docusate sodium 1 tab-cap PO HS 08/20/21 08/20/21 50 mg tablet vitamin B12 0.5 mg-folic acid 1 mg 1 tab PO DAILY 08/20/21 08/20/21 tablet Previous Rx's Medication Instructions Recorded acetaminophen 325 mg tablet 650 mg PO Q6H PRN #30 tab 02/13/20 Results & Data (ED) Vital Signs Vital Signs - 24 hr 08/20/21 08:59 08/20/21 10:01 08/20/21 10:15 Temperature 37.1 C Temperature Source Oral Pulse Rate 86 Pulse Rate [Apical] 84 Respiratory Rate 18 16 Respiratory Effort / Characteristics Non-Labored Respiratory Depth Normal Respiratory Pattern Regular Blood Pressure 236/146 H Blood Pressure [Right Arm] 205/115 H Blood Pressure Mean 176 Blood Pressure Mean [Right Arm] 145 Blood Pressure Position Lying Pulse Oximetry 96 100 98 Oxygen Delivery Method Room Air Room Air Room Air Oxygen Flow Rate Sepsis Recent Fever Within 48 Hours No Sepsis New/Unexplained Change in Mental Status No Sepsis Action Taken by Nursing No Action Required 08/20/21 11:38 08/20/21 12:10 Temperature Temperature Source Pulse Rate Pulse Rate [Apical] 83 76 Respiratory Rate 17 18 Respiratory Effort / Characteristics Respiratory Depth Respiratory Pattern Blood Pressure Blood Pressure [Right Arm] 181/115 H 168/83 H Blood Pressure Mean Blood Pressure Mean [Right Arm] 137 111 Blood Pressure Position Pulse Oximetry 92 92 Oxygen Delivery Method Nasal Cannula Oxygen Flow Rate 2 Sepsis Recent Fever Within 48 Hours Sepsis New/Unexplained Change in Mental Status Sepsis Action Taken by Nursing Laboratory Data Result diagrams: 08/20/21 09:18 08/20/21 09:18 Lab Results 08/20/21 08/20/21 08/20/21 Range/Units 09:18 09:18 09:18 WBC 5.65 (4.8-10.8) K/uL RBC 4.69 (4.2-5.4) M/uL Hgb 14.5 (12.0-16.0) g/dL Hct 43.1 (37-47) % MCV 91.9 (80-100) fL MCH 30.9 (25-34) pg MCHC 33.6 (32-36) g/dL RDW Std Deviation 47.2 H (36.4-46.3) fL RDW Coeff of [place]are[place] 14.0 (11.5-14.5) % Plt Count 198 (130-400) K/uL MPV 10.9 H (7.4-10.4) fL Immature Gran % (Auto) 0.4 % Neut % (Auto) 53.5 % Lymph % (Auto) 36.5 % [place] % (Auto) 7.8 % Eos % (Auto) 1.6 % Baso % (Auto) 0.2 % Neut # (Auto) 3.03 (1.4-6.5) K/uL Lymph # (Auto) 2.06 (1.2-3.4) K/uL [place] # (Auto) 0.44 (0.11-0.59) K/uL Eos # (Auto) 0.09 (0-0.5) K/uL Baso # (Auto) 0.01 (0-0.2) K/uL Immature Gran # (Auto) 0.02 (0.00-0.02) K/uL PT 10.5 (9.0-12.0) Seconds INR 1.0 (0.9-1.1) APTT 24.4 (21.0-31.0) Seconds PTT Ratio 0.9 Sodium 143 (136-145) mmol/L Potassium 3.1 L (3.5-5.1) mmol/L Chloride 107 (98-107) mmol/L Carbon Dioxide 27 (21-32) mmol/L Anion Gap 10.0 (3-11) BUN 14 (7-18) mg/dl Creatinine 0.63 (0.6-1.2) mg/dl Est Cr Clr Drug Dosing 68.2 ml/min Est GFR ( Amer) 96.1 ml/min Est GFR (Non-Af Amer) 82.9 ml/min BUN/Creatinine Ratio 21.6 H (10-20) Glucose 109 H (70-99) mg/dl Calcium 9.0 (8.5-10.1) mg/dl Total Bilirubin 0.5 (0.2-1) mg/dl AST 20 (15-37) U/L ALT 11 L (12-78) U/L Alkaline Phosphatase 112 (45-117) U/L Troponin I < 0.015 (0-0.045) ng/ml Total Protein 6.5 (6.4-8.2) gm/dl Albumin 3.4 (3.4-5.0) gm/dl Globulin 3.1 (2.5-4.0) gm/dl Albumin/Globulin Ratio 1.1 (0.9-2) Lipase 107 (73-393) U/L Urine Color Urine Appearance (Clear) Urine pH (4.5-7.5) Ur Specific [place] (1.000-1.030) Urine Protein (Negative) Urine Glucose (UA) (Negative) Urine Ketones (Negative) Urine Blood (Negative) Urine Nitrite (Negative) Urine Bilirubin (Negative) Urine Urobilinogen (Negative) Ur Leukocyte Esterase (Negative) 08/20/21 Range/Units 10:33 WBC (4.8-10.8) K/uL RBC (4.2-5.4) M/uL Hgb (12.0-16.0) g/dL Hct (37-47) % MCV (80-100) fL MCH (25-34) pg MCHC (32-36) g/dL RDW Std Deviation (36.4-46.3) fL RDW Coeff of Yareli (11.5-14.5) % Plt Count (130-400) K/uL MPV (7.4-10.4) fL Immature Gran % (Auto) % Neut % (Auto) % Lymph % (Auto) % [place] % (Auto) % Eos % (Auto) % Baso % (Auto) % Neut # (Auto) (1.4-6.5) K/uL Lymph # (Auto) (1.2-3.4) K/uL [place] # (Auto) (0.11-0.59) K/uL Eos # (Auto) (0-0.5) K/uL Baso # (Auto) (0-0.2) K/uL Immature Gran # (Auto) (0.00-0.02) K/uL PT (9.0-12.0) Seconds INR (0.9-1.1) APTT (21.0-31.0) Seconds PTT Ratio Sodium (136-145) mmol/L Potassium (3.5-5.1) mmol/L Chloride (98-107) mmol/L Carbon Dioxide (21-32) mmol/L Anion Gap (3-11) BUN (7-18) mg/dl Creatinine (0.6-1.2) mg/dl Est Cr Clr Drug Dosing ml/min Est GFR ( Amer) ml/min Est GFR (Non-Af Amer) ml/min BUN/Creatinine Ratio (10-20) Glucose (70-99) mg/dl Calcium (8.5-10.1) mg/dl Total Bilirubin (0.2-1) mg/dl AST (15-37) U/L ALT (12-78) U/L Alkaline Phosphatase (45-117) U/L Troponin I (0-0.045) ng/ml Total Protein (6.4-8.2) gm/dl Albumin (3.4-5.0) gm/dl Globulin (2.5-4.0) gm/dl Albumin/Globulin Ratio (0.9-2) Lipase (73-393) U/L Urine Color Yellow Urine Appearance Clear (Clear) Urine pH 8.5 H (4.5-7.5) Ur Specific [place] 1.009 (1.000-1.030) Urine Protein Negative (Negative) Urine Glucose (UA) Negative (Negative) Urine Ketones Negative (Negative) Urine Blood Negative (Negative) Urine Nitrite Negative (Negative) Urine Bilirubin Negative (Negative) Urine Urobilinogen Negative (Negative) Ur Leukocyte Esterase Negative (Negative) Administered Medications Discontinued Medications Acetaminophen (Acetaminophen 500 Mg Tab) Confirm Administered Dose 1,000 mg .ROUTE .STK-MED ONE Stop: 08/20/21 13:21 Last Admin: 08/20/21 13:30 Dose: 1,000 mg Documented by: [id number] Sodium Chloride (Nss) 500 mls @ 999 mls/hr IV .Q31M STA Stop: 08/20/21 09:36 Last Infusion: 08/20/21 09:56 Dose: 0 mls/hr Documented by: [id number] Admin: 08/20/21 09:25 Dose: 999 mls/hr Documented by: [id number] Acetaminophen (Ofirmev) 1,000 mg in 100 mls @ 400 mls/hr IV Q8H STA Stop: 08/20/21 14:06 Last Admin: 08/20/21 13:54 Dose: Not Given Documented by: [id number] Morphine Sulfate (Morphine Sulfate 2 Mg/Ml Carp) 2 mg IV NOW STA Stop: 08/20/21 09:10 Last Admin: 08/20/21 09:27 Dose: 2 mg Documented by: [id number] Morphine Sulfate (Morphine Sulfate 2 Mg/Ml Carp) 2 mg IV NOW STA Stop: 08/20/21 09:58 Last Admin: 08/20/21 10:02 Dose: 2 mg Documented by: [id number] Morphine Sulfate (Morphine Sulfate 4 Mg/Ml 1 Ml Carp\Vial) 4 mg IV NOW STA Stop: 08/20/21 11:31 Last Admin: 08/20/21 11:42 Dose: 4 mg Documented by: [id number] Morphine Sulfate (Morphine Sulfate 2 Mg/Ml Carp) 2 mg IV NOW STA Stop: 08/20/21 13:47 Last Admin: 08/20/21 14:29 Dose: Not Given Documented by: [id number] Morphine Sulfate (Morphine Sulfate 2 Mg/Ml Carp) Confirm Administered Dose 2 mg .ROUTE .STK-MED ONE Stop: 08/20/21 14:05 Last Admin: 08/20/21 14:07 Dose: 2 mg Documented by: [id number] Ondansetron HCl (Ondansetron Inj 2 Mg/Ml 2 Ml Vial) 4 mg IV NOW STA Stop: 08/20/21 09:10 Last Admin: 08/20/21 09:23 Dose: 4 mg Documented by: [id number] Potassium Chloride (Potassium Chloride Crtab 20 Meq Tabcr) 40 meq PO NOW STA Stop: 08/20/21 14:04 Last Admin: 08/20/21 14:33 Dose: 40 meq Documented by: [id number] Imaging Data Radiologist's Impression: Chest X-Ray 08/20/21 09:06 XR chest 1V portable HISTORY: 81 years-old Female Chest Pain acute atypical chest pain COMPARISON: Chest radiograph 08/31/2019 TECHNIQUE: Supine AP view of the chest FINDINGS: Cardiac mediastinal and hilar silhouettes are within normal limits. Calcified plaque of the thoracic aorta. No pneumothorax, pleural effusion, airspace co nsolidation or overt pulmonary edema. Mild right hemidiaphragmatic elevation. Degenerative changes of the shoulders and spine. IMPRESSION: No acute process. ACT 112: Negative or not required by law. The above report was generated using voice recognition software. It may contain grammatical, syntax or spelling errors. Electronically signed by: Benny New M.D. 08/20/2021 10:27 AM Hip/Pelvis X-Ray 08/20/21 09:07 XR hips GAUTAM 1v w pelvis CLINICAL HISTORY: Fall. Bilateral hip pain. COMPARISON STUDY: Pelvis 10/14/2018. FINDINGS: There is an angulated and slightly comminuted intertrochanteric fracture within the proximal right femur. No dislocation. The patient has pelvic bones and left hip are intact. Partially visualized lumbar spinal fusion hardware again noted. IMPRESSION: Slightly comminuted intertrochanteric fracture within the proximal right femur ACT 112: Negative or not required by law. Electronically signed by: Jacques Salas M.D. 08/20/2021 11:[address] 08/20/21 09:[address] DOSE: 1603.23 mGy.cm HISTORY: FALL TECHNIQUE: Multiaxial CT images of the head were performed without the use of intravenous contrast. Automated exposure control was utilized for this study. A dose lowering technique was utilized adhering to the principles of ALARA. Comparison: Head CT 08/31/2019. Findings: Motion artifact. The paranasal sinuses and mastoid air cells are clear. The calvarium and skull base are intact. There is no mass, hematoma, mi dline shift, acute infarct. White matter hypodensity is nonspecific but suggestive of microvascular ischemic change. The ventricles and sulci demonstrate mild age-related involutional changes. Impression: Motion artifact. No definite acute intracranial abnormality. ACT 112: Negative or not required by law. Electronically signed by: Jacques Salas M.D. 08/20/2021 10:02 AM Discharge Plan Visit Data Chief Complaint: Fall ED Provider: Chuy Almazan Discharge Problem: Hip fracture, right Patient Disposition: Admitted As Inpatient Discharge Instructions Interventions: ED Discharge Assessment Last Done: 08/20/21 14:44 Discharge Problem: Hip fracture, right Qualifiers: Encounter type: initial encounter Fracture type: closed Qualified Code(s): S72.001A - Fracture of unspecified part of neck of right femur, initial encounter for closed fracture
[2021-08-20] MEDS: MoRPHine SULFATE 2 MG/ML CARP IV STA ×2 (09:23→09:27)
[2021-08-20 09:27] LABS: Basophils # (auto) 0.01 K/uL (0-0.2); Basophils % (auto) 0.2 %; Eosinophils # (auto) 0.09 K/uL (0-0.5); Eosinophils % (auto) 1.6 %; Hematocrit (blood only) 43.1 % (37-47); Hemoglobin 14.5 g/dL (12.0-16.0); Immature Granulocytes # (auto) 0.02 K/uL (0.00-0.02); Immature Granulocytes % (auto) 0.4 %; Lymphocytes # (auto) 2.06 K/uL (1.2-3.4); Lymphocytes % (auto) 36.5 %; Mean Corpuscular Hemoglobin 30.9 pg (25-34); Mean Corpuscular Hgb Conc 33.6 g/dL (32-36); Mean Corpuscular Volume 91.9 fL (80-100); Mean Platelet Volume 10.9 fL (7.4-10.4); Monocytes # (auto) 0.44 K/uL (0.11-0.59); Monocytes % (auto) 7.8 %; Neutrophils # (auto) 3.03 K/uL (1.4-6.5); Neutrophils % (auto) 53.5 %; Platelet Count 198 K/uL (130-400); RDW Standard Deviation 47.2 fL (36.4-46.3); Red Blood Count 4.69 M/uL (4.2-5.4); White Blood Count 5.65 K/uL (4.8-10.8)
[2021-08-20 09:38] LABS: Partial Thromboplastin Ratio 0.9; Partial Thromboplastin Time 24.4 Seconds (21.0-31.0); Prothrombin Time 10.5 Seconds (9.0-12.0)
[2021-08-20 09:53] LABS: Alanine Aminotransferase 11 U/L (12-78); Albumin Level 3.4 gm/dl (3.4-5.0); Aspartate Aminotransferase 20 U/L (15-37); BUN Creatinine Ratio 21.6 (10-20); Blood Urea Nitrogen 14 mg/dl (7-18); Carbon Dioxide 27 mmol/L (21-32); Chloride 107 mmol/L (98-107); Creatinine Clr Calc Pharmacy 68.2 ml/min; Est GFR (African American) 96.1 ml/min; Est GFR (Non-African American) 82.9 ml/min; Glucose 109 mg/dl (70-99); Lipase 107 U/L (73-393); Potassium 3.1 mmol/L (3.5-5.1); Sodium 143 mmol/L (136-145)
[2021-08-20] MEDS ORDERED: MoRPHine SULFATE 2 MG/ML CARP IV STA ×2 (09:57→13:46)
[2021-08-20 09:58] LABS: Albumin Globulin Ratio 1.1 (0.9-2); Alkaline Phosphatase 112 U/L (45-117); Bilirubin,Total 0.5 mg/dl (0.2-1); Globulin 3.1 gm/dl (2.5-4.0); Total Protein 6.5 gm/dl (6.4-8.2); Troponin I < 0.015 ng/ml (0-0.045)
--- NOTE | 2021-08-20 10:03 | CT Scan Report ---
HEAD CT NONCONTRAST CT DOSE: 1603.23 mGy.cm HISTORY: FALL TECHNIQUE: Multiaxial CT images of the head were performed without the use of intravenous contrast. A utomated exposure control was utilized for this study. A dose lowering technique was utilized adheri ng to the principles of ALARA. Comparison: Head CT 08/31/2019. Findings: Motion artifact. The paranasal sinuses and mastoid air cells are clear. The calvarium and s kull base are intact. There is no mass, hematoma, midline shift, acute infarct. White matter hypodens ity is nonspecific but suggestive of microvascular ischemic change. The ventricles and sulci demonstr ate mild age-related involutional changes. Impression: Motion artifact. No definite acute intracranial abnormality. ACT 112: Negative or not required by law. Electronically signed by: Jacques Salas M.D. 08/20/2021 10:02 AM
--- NOTE | 2021-08-20 10:29 | XRay Report ---
XR chest 1V portable HISTORY: 81 years-old Female Chest Pain acute atypical chest pain COMPARISON: Chest radiograph 08/31/2019 TECHNIQUE: Supine AP view of the chest FINDINGS: Cardiac mediastinal and hilar silhouettes are within normal limits. Calcified plaque of the thoracic aorta. No pneumothorax, pleural effusion, airspace consolidation or overt pulmonary edema. Mild right hemidiaphragmatic elevation. Degenerative changes of the shoulders and spine. IMPRESSION: No acute process. ACT 112: Negative or not required by law. The above report was generated using voice recognition software. It may contain grammatical, syntax o r spelling errors. Electronically signed by: Benny New M.D. 08/20/2021 10:27 AM
--- NOTE | 2021-08-20 11:25 | XRay Report ---
XR hips GAUTAM 1v w pelvis CLINICAL HISTORY: Fall. Bilateral hip pain. COMPARISON STUDY: Pelvis 10/14/2018. FINDINGS: There is an angulated and slightly comminuted intertrochanteric fracture within the proxima l right femur. No dislocation. The patient has pelvic bones and left hip are intact. Partially visual ized lumbar spinal fusion hardware again noted. IMPRESSION: Slightly comminuted intertrochanteric fracture within the proximal right femur ACT 112: Negative or not required by law. Electronically signed by: Jacques Salas M.D. 08/20/2021 11:24 AM
[2021-08-20] MEDS ORDERED: MoRPHine SULFATE 4 MG/ML 1 ML CARP\\VIAL IV STA (11:30)
--- NOTE | 2021-08-20 11:51 | Electrocardiogram Report ---
Test Reason : Blood Pressure : / mmHG Vent. Rate : 085 BPM Atrial Rate : 085 BPM P-R Int : 148 ms QRS Dur : 100 ms QT Int : 370 ms P-R-T Axes : 006 000 018 degrees QTc Int : 440 ms Poor data quality, interpretation may be adversely affected Normal sinus rhythm Poor R wave progression, consider anterior MA vs. lead placement vs. LVH Nonspecific ST abnormality When compared with ECG of 31-AUG-2019 13:35, Criteria for Inferior infarct are no longer Present Confirmed by Viraj Dobbins ([id number]) on 08/20/2021 11:51:39 AM Referred By: Confirmed By:Rogelio Dobbins
--- NOTE | 2021-08-20 13:13 | History & Physical Report ---
Date of Service August 20, 2021 Assessment & Plan (1) Intertrochanteric fracture of right femur: Plan: This is an 81yo F patient residing at [facility] with a PMH of DM II, Parkinson's disease, HTN, GERD, chronic back pain, depression and anxiety who presents from [facility] after a fall onto R side and was found to have slightly comminuted intertrochanteric fracture within the proximal right femur. Staff heard patient yelling for help and found her lying on the floor on right ride Hip/pelvis XR with slightly comminuted intertrochanteric fracture within the proximal right femur Ortho consulted - Dr. Cruz to evaluate Pain control, pre-op abx, pardo placement per ortho order set NPO for now (2) Acute metabolic encephalopathy: Plan: Progressive decline over the past month with increased confusion and falls, has history of Parkinsons Notably worse confusion since Klonopin changed from PRN to scheduled BID 3 weeks ago, so possibly drug induced encephalopathy CT head without acute intracranial abnormality. Afebrile, no leukocytosis, UA unremarkable Will plan to hold Klonopin for now. Gentle IV fluids. Consider MRI brain if no improvement (3) Hypokalemia: Plan: Initial K 3.1. Replaced. Monitor with daily BMP (4) HTN (hypertension): Plan: Optimize pain control, continue home lisinopril (5) Parkinson disease: Plan: Missed AM dose of cabidopa-levodopa, which was given Continue cabidopa-levodopa, primidone (6) Diabetes mellitus, type II: Plan: A1c 5.7 in Sept Diet controlled (7) Anxiety and depression: Plan: Given missed dose of lexapro. Holding Klonopin for now DVT Ppx: SCDs in setting of possible surgery Code status: DNR per previous admission, paperwork from [facility] PCP: [facility] Dispo: Admitted to med/surg Will update friend Tory/SHABBIR at [phone] Patient seen in collaboration with Dr. Ruff. Please see addendum. History of Present Illness Chief Complaint: fall Primary Care Provider: HIEN This is an 81yo F with a PMH of DM II, Parkinson's disease, HTN, GERD, chronic back pain, depression and anxiety who presents from [facility] after a fall onto R side. Patient unable to provide reliable history. Per discussion with staff, patient has declined over the past month. Previously ANO x3 and able to ambulate independently. Over the past 3 weeks, patient more intermittently confused. Nursing correlates this to when Klonopin twice daily became scheduled rather than as needed. Had a fall last week where she slid to the ground. No head trauma. Last evening when nurses were passing medications, patient was found disoriented and with disheveled clothing which is unusual for her. This morning, nursing heard patient yelling for help and found her on the ground without clothing on. Was found on her right side complaining of pain and was sent into ED for further evaluation. Did not receive medications prior to being sent in for evaluation. Per facility paperwork, patient is a DNR/DNI. Limited family support but POA is friend, Tory. Remote history of PE over 30 years ago. ROS unobtainable due to cognitive state. Allergies Allergy/AdvReac Type Severity Reaction Status Date / Time codeine Allergy Severe SEVERE Verified 08/20/21 12:26 HEADACHE, NAUSEA & VOMITING morphine Allergy Severe SEVERE Verified 08/20/21 12:26 HEADACHE, NAUSEA, & VOMITING pentazocine [From Rajani] Allergy Severe DECREASED Verified 08/20/21 12:26 MOTOR SKILL, SOB. lactose Allergy Unknown ON MED Verified 08/20/21 12:26 LIST FROM [facility] Medications Medication Instructions Recorded Confirmed Type omeprazole 20 mg tablet,delayed 20 mg PO AMHS 10/14/18 08/20/21 History release primidone 50 mg tablet 50 mg PO BID 05/31/19 08/20/21 History acetaminophen 325 mg tablet 650 mg PO Q6H PRN #30 tab 02/13/20 08/20/21 Rx melatonin 5 mg tablet 5 mg PO HS 02/13/20 08/20/21 History naproxen sodium 220 mg tablet 220 mg PO Q12H PRN 02/13/20 08/20/21 History (Aleve) aspirin 81 mg chewable tablet 81 mg PO DAILY 08/20/21 08/20/21 History bisacodyl 10 mg rectal suppository 10 mg NM DAILY PRN 08/20/21 08/20/21 History (Dulcolax (bisacodyl)) carbidopa ER 50 mg-levodopa 200 mg 1 tab PO BID 08/20/21 08/20/21 History tablet,extended release clonazepam 0.5 mg tablet 0.5 mg PO BID 08/20/21 08/20/21 History docusate sodium 100 mg capsule 100 mg PO BID PRN 08/20/21 08/20/21 History (Colace) ergocalciferol (vitamin D2) 1,250 1,250 mcg PO DAILY 08/20/21 08/20/21 History mcg (50,000 unit) capsule (Vitamin D2) escitalopram oxalate 20 mg tablet 20 mg PO DAILY 08/20/21 08/20/21 History (Lexapro) lisinopril 10 mg tablet 10 mg PO DAILY 08/20/21 08/20/21 History magnesium hydroxide 400 mg/5 mL 30 ml PO DAILY PRN 08/20/21 08/20/21 History oral suspension (Milk of Magnesia) ondansetron 4 mg disintegrating 4 mg PO Q6H PRN 08/20/21 08/20/21 History tablet sennosides 8.6 mg-docusate sodium 1 tab-cap PO HS 08/20/21 08/20/21 History 50 mg tablet vitamin B12 0.5 mg-folic acid 1 mg 1 tab PO DAILY 08/20/21 08/20/21 History tablet Past Med/Surg History Medical History Anxiety and depression Chronic back pain Constipation Diabetes mellitus, type II Do not resuscitate status Dyslipidemia Gastroesophageal reflux disease GERD (gastroesophageal reflux disease) HTN (hypertension) Hx of diabetic gastroparesis Hx of migraines Hypokalemia Intractable nausea and vomiting Malnutrition Obesity Parkinson disease Tremor Surgical History History of cervical spinal surgery X 2 History of lumbosacral spine surgery X2 History of open reduction and internal fixation (ORIF) procedure RIGHT WRIST History of tubal ligation Hx of cataract surgery RIGHT AND LEFT Hx of cholecystectomy Hx of tonsillectomy Family History Father , 51 Myocardial infarction Hypertension Social History Smoking Status: Unknown if ever smoked Second Hand Exposure: No; Do You Dip or Chew Tobacco: No; Tobacco Cessation Education Requested by Patient: No Hx Alcohol Use: No Hx Substance Use: No Preferred Language: Icelandic Communication Ability: Effective Communication Ability Comment: feels a little fuzzy Farm Helper Required: No Beliefs That Will Affect Care: None marital status: Current Living Situation: Personal Care Facility Current Living Situation Comment: [place] Other Information That Helps Us Care for You: No Feels Safe at Home: Yes Safety Concerns: Feels Safe At This Time Assistive Devices: Walker Review of Systems Review of Systems: Unobtainable due to cognitive status Physical Exam Physical Exam: General Appearance: WD/WN, vitals as above, NAD, lying in bed, in pain, BUE tremors, A&O to person only Head: normocephalic, atraumatic Eyes: normal inspection, PERRL, conjunctivae normal, anicteric sclerae ENT: external ear and nose normal, oropharynx normal Neck: normal visual inspection, trachea midline, no thyromegaly Respiratory: normal respiratory effort, lungs clear to auscultation, no wheeze, rales, rhonchi. No accessory muscle use Cardiovascular: regular rate, rhythm, no murmur, normal peripheral pulses, no BLE edema. Vessels: no JVD Chest: normal inspection of chest Abdomen/GI: normal bowel sounds, soft, nontender, no hepatosplenomegaly Extremities/Musculoskeletal: R leg no cyanosis or clubbing, extremities motor strength 5/5 Neurologic: PERRL, EOMI, accommodation nl, no face palsy, no dysarthria, CN's II-XI intact bilaterally and moves all extremities Psychiatric: A+Ox3, euthymic affect Skin: no rashes, normal color, warm/dry Results & Data Results & Data ([facility]) Vital Signs (Past 12 Hours) Vital Signs Temp Pulse Pulse Resp BP BP Pulse Ox 08/20/21 12:10 76 18 168/83 H 92 08/20/21 11:38 83 17 181/115 H 92 08/20/21 10:15 98 08/20/21 10:01 84 16 205/115 H 100 08/20/21 08:59 37.1 C 86 18 236/146 H 96 Laboratory Results Short CBC 08/20/21 Range/Units 09:18 WBC 5.65 (4.8-10.8) K/uL Hgb 14.5 (12.0-16.0) g/dL Hct 43.1 (37-47) % Plt Count 198 (130-400) K/uL BMP 08/20/21 09:18 Sodium 143 Potassium 3.1 L Chloride 107 Carbon Dioxide 27 BUN 14 Creatinine 0.63 Glucose 109 H Calcium 9.0 Cardiac Enzymes 08/20/21 Range/Units 09:18 Troponin I < 0.015 (0-0.045) ng/ml Liver Function 08/20/21 Range/Units 09:18 Total Bilirubin 0.5 (0.2-1) mg/dl AST 20 (15-37) U/L ALT 11 L (12-78) U/L Alkaline Phosphatase 112 (45-117) U/L Albumin 3.4 (3.4-5.0) gm/dl Diagnostic Findings Chest X-Ray 08/20/21 09:06 XR chest 1V portable HISTORY: 81 years-old Female Chest Pain acute atypical chest pain COMPARISON: Chest radiograph 08/31/2019 TECHNIQUE: Supine AP view of the chest FINDINGS: Cardiac mediastinal and hilar silhouettes are within normal limits. Calcified plaque of the thoracic aorta. No pneumothorax, pleural effusion, airspace consolidation or overt pulmonary edema. Mild right hemidiaphragmatic elevation. Degenerative changes of the shoulders and spine. IMPRESSION: No acute process. ACT 112: Negative or not required by law. The above report was generated using voice recognition software. It may contain grammatical, syntax or spelling errors. Electronically signed by: Benny New M.D. 08/20/2021 10:27 AM Hip/Pelvis X-Ray 08/20/21 09:07 XR hips GAUTAM 1v w pelvis CLINICAL HISTORY: Fall. Bilateral hip pain. COMPARISON STUDY: Pelvis 10/14/2018. FINDINGS: There is an angulated and slightly comminuted intertrochanteric fracture within the proximal right femur. No dislocation. The patient has pelvic bones and left hip are intact. Partially visualized lumbar spinal fusion hardware again noted. IMPRESSION: Slightly comminuted intertrochanteric fracture within the proximal right femur ACT 112: Negative or not required by law. Electronically signed by: Jacques Salas M.D. 08/20/2021 11:[address] 08/20/21 09:[address] DOSE: 1603.23 mGy.cm HISTORY: FALL TECHNIQUE: Multiaxial CT images of the head were performed without the use of intravenous contrast. Automated exposure control was utilized for this study. A dose lowering technique was utilized adhering to the principles of ALARA. Comparison: Head CT 08/31/2019. Findings: Motion artifact. The paranasal sinuses and mastoid air cells are clear. The calvarium and skull base are intact. There is no mass, hematoma, midline shift, acute infarct. White matter hypodensity is nonspecific but suggestive of microvascular ischemic change. The ventricles and sulci demonstrate mild age-related involutional changes. Impression: Motion artifact. No definite acute intracranial abnormality. ACT 112: Negative or not required by law. Electronically signed by: Jacques Salas M.D. 08/20/2021 10:02 AM ECG Additional Comments: NSR, poor R wave progression, nonspecific ST abnormalities (unchanged from previous) Code Status & VTE Plan VTE Prophylaxis Plan VTE Prophylaxis will be ordered: No Supervising Physician Co-Signing Physician Notes Attending Addendum: delayed entry date of service noted above care coordinated with ZULAY Hansen please refer to her notes for full details, I agree with her notes patient seen and examined, records reviewed by myself as well on exam, patient seen resting in bed, awake, answers questions but confused not oriented mild R hip pain no chest pain, dyspnea, palpitations, dizziness no other symptoms VS noted and reviewed oriented x 0 , not in distress, speaks in sentences with no effort nor accessory muscle use normal rate, regular rhythm, no murmurs clear breath sounds bilaterally non distended, soft, nontender (+) mildly externally rotated RLE no bipedal edema, erythema, warmth no neuro deficits WBC 5.6 Hg 14.5 Crea 0.63 ASSESSMENT AND PLAN R HIP FRACTURE moderate-high risk for cardiopulmonary complications secondary to comorobidities, age no medical contraindication to proceed with surgery ALTERED MENTAL STATUS likely form Clonipine CT head no acute process d/c Clonipine monitor HTN continue usual meds other diagnoses and plan of care as per BRAYDEN Hansen's notes Elliott Ruff MD
[2021-08-20] MEDS ORDERED: ACETAMINOPHEN 500 MG TAB ONE (13:20)
[2021-08-20] MEDS ORDERED: ACETAMINOPHEN 1,000 MG/100 ML VIAL IV STA (13:52)
[2021-08-20] MEDS ORDERED: MAGNESIUM HYDROXIDE SUSP 30 ML UDC PO PRN ×2 (14:01→15:10)
[2021-08-20] MEDS ORDERED: bisacodyL 10 MG SUPP PR PRN ×2 (14:01→15:10)
[2021-08-20] MEDS ORDERED: DOCUSATE SODIUM 100 MG CAP PO PRN (14:01)
[2021-08-20] MEDS ORDERED: POTASSIUM CHLORIDE CRTAB 20 MEQ TABCR PO STA (14:03)
[2021-08-20] MEDS ORDERED: MoRPHine SULFATE 2 MG/ML CARP ONE (14:04)
[2021-08-20 14:44] LABS: Appearance Urine Clear (Clear); Bilirubin Urine Negative (Negative); Blood Urine Negative (Negative); Color Urine Yellow; Glucose Urine UA Negative (Negative); Ketones Urine Negative (Negative); Leukocyte Esterase Urine Negative (Negative); Nitrite Urine Negative (Negative); Protein Urine Negative (Negative); Specific Gravity Urine 1.009 (1.000-1.030); Urobilinogen Urine Negative (Negative); pH Urine 8.5 (4.5-7.5)
[2021-08-20] MEDS ORDERED: OLANZapine 10 MG/2.1 ML SDV IM PRN (15:10)
[2021-08-20] MEDS ORDERED: NALOXONE HCL 0.4 MG/1 ML VIAL/CARP IV PRN (15:10)
[2021-08-20] MEDS ORDERED: ONDANSETRON INJ 2 MG/ML 2 ML VIAL IV PRN (15:10)
[2021-08-20] MEDS ORDERED: POTASSIUM CHLORIDE 20 MEQ in SODIUM CHLORIDE 0.9% 500 ML IV SCH (16:00)
--- NOTE | 2021-08-20 16:02 | Anesthesiology Consultation ---
Date of Service August 20, 2021 Assessment & Plan Chart Review Chart Review: Pending: Refer to Additional Notes / Consult section (recheck potassium level on 08/21/21) and Patient NOT seen in Pre Admission Testing Consults Requested none medicine is following the patient History Surgery Operation Date: 08/21/21 09:25 Proposed Procedures p Right Hip ORIF with Troch Nail - Vaughn Cruz MD The patient is an 81 y/o female who had an [facility]itnessed fall at her [facility] and was found yelling in pain by the staff. Her head CT was negative. I spoke with Ernestina Hansen who admitted the patient. The patient is alert and oriented to self and has had a mental decline over the past month possibly due to increased Klonopin dosing. The patient has multiple comorbidities that are being addressed by the medicine team including hypokalemia, DM, Parkinson's disease, and HTN. Her EKG shows some abnormalities but they appear to be chronic. If the patient has surgery consent will need to be obtained from her friend Holly who is the POA. Her DNI order would need to be temporarily rescinded. Height/Weight Height: 5 ft 2 in Weight: 84.5 kg Allergies Allergy/AdvReac Type Severity Reaction Status Date / Time codeine Allergy Severe SEVERE Verified 08/20/21 12:26 HEADACHE, NAUSEA & VOMITING morphine Allergy Severe SEVERE Verified 08/20/21 12:26 HEADACHE, NAUSEA, & VOMITING pentazocine [From Rajani] Allergy Severe DECREASED Verified 08/20/21 12:26 MOTOR SKILL, SOB. lactose Allergy Unknown ON MED Verified 08/20/21 12:26 LIST FROM [facility] Medications Medication Instructions Recorded Confirmed Last Taken omeprazole 20 mg tablet,delayed 20 mg PO AMHS 10/14/18 08/20/21 02/13/20 07:00 release primidone 50 mg tablet 50 mg PO BID 05/31/19 08/20/21 02/13/20 08:00 acetaminophen 325 mg tablet 650 mg PO Q6H PRN #30 tab 02/13/20 08/20/21 Unknown melatonin 5 mg tablet 5 mg PO HS 02/13/20 08/20/21 02/12/20 naproxen sodium 220 mg tablet 220 mg PO Q12H PRN 02/13/20 08/20/21 Unknown (Aleve) aspirin 81 mg chewable tablet 81 mg PO DAILY 08/20/21 08/20/21 Unknown bisacodyl 10 mg rectal suppository 10 mg RI DAILY PRN 08/20/21 08/20/21 Unknown (Dulcolax (bisacodyl)) carbidopa ER 50 mg-levodopa 200 mg 1 tab PO BID 08/20/21 08/20/21 Unknown tablet,extended release clonazepam 0.5 mg tablet 0.5 mg PO BID 08/20/21 08/20/21 Unknown docusate sodium 100 mg capsule 100 mg PO BID PRN 08/20/21 08/20/21 Unknown (Colace) ergocalciferol (vitamin D2) 1,250 1,250 mcg PO DAILY 08/20/21 08/20/21 Unknown mcg (50,000 unit) capsule (Vitamin D2) escitalopram oxalate 20 mg tablet 20 mg PO DAILY 08/20/21 08/20/21 Unknown (Lexapro) lisinopril 10 mg tablet 10 mg PO DAILY 08/20/21 08/20/21 Unknown magnesium hydroxide 400 mg/5 mL 30 ml PO DAILY PRN 08/20/21 08/20/21 Unknown oral suspension (Milk of Magnesia) ondansetron 4 mg disintegrating 4 mg PO Q6H PRN 08/20/21 08/20/21 Unknown tablet sennosides 8.6 mg-docusate sodium 1 tab-cap PO HS 08/20/21 08/20/21 Unknown 50 mg tablet vitamin B12 0.5 mg-folic acid 1 mg 1 tab PO DAILY 08/20/21 08/20/21 Unknown tablet Past Medical History Medical History Anxiety and depression Chronic back pain Constipation Diabetes mellitus, type II Do not resuscitate status Dyslipidemia Gastroesophageal reflux disease GERD (gastroesophageal reflux disease) HTN (hypertension) Hx of diabetic gastroparesis Hx of migraines Hypokalemia Intractable nausea and vomiting Malnutrition Obesity Parkinson disease Tremor Past Family History Family History Father , 51 Myocardial infarction Hypertension Past Surgical History Surgical History History of cervical spinal surgery X 2 History of lumbosacral spine surgery X2 History of open reduction and internal fixation (ORIF) procedure RIGHT WRIST History of tubal ligation Hx of cataract surgery RIGHT AND LEFT Hx of cholecystectomy Hx of tonsillectomy Social History Smoking Status: Unknown if ever smoked Do You Dip or Chew Tobacco: No Hx Alcohol Use: No Alcohol type: hard liquor alcohol intake frequency: holidays/special occasions only Hx Substance Use: No substance use type: does not use Last Used Substance: Unknown Physical Exam Vital Signs Last Vital Signs Temp 37.0 C 08/20/21 15:27 Pulse 69 08/20/21 15:27 Resp 18 08/20/21 15:27 BP 174/91 H 08/20/21 15:27 Pulse Ox 96 08/20/21 15:27 Testing Laboratory Results 08/20/21 09:18 08/20/21 09:18 PT 10.5 Seconds (9.0-12.0) 08/20/21 09:18 INR 1.0 (0.9-1.1) 08/20/21 09:18 APTT 24.4 Seconds (21.0-31.0) 08/20/21 09:18 Urine Color Yellow 08/20/21 10:33 Urine Appearance Clear (Clear) 08/20/21 10:33 Urine pH 8.5 (4.5-7.5) H 08/20/21 10:33 Ur Specific [place] 1.009 (1.000-1.030) 08/20/21 10:33 Urine Protein Negative (Negative) 08/20/21 10:33 Urine Glucose (UA) Negative (Negative) 08/20/21 10:33 Urine Ketones Negative (Negative) 08/20/21 10:33 Urine Nitrite Negative (Negative) 08/20/21 10:33 Ur Leukocyte Esterase Negative (Negative) 08/20/21 10:33 Electrocardiogram Date: 08/20/21 Findings: + NSR @ (85), + NSST changes and + poor R wave progression similar to 2019 Chest X-Ray Date: 08/20/21 Findings: + NAD, + atherosclerosis of thoracic aorta and + R hemidiaphragm elevation degenerative changes Other Testing Head CT 08/20/21 No definite intracranial abnormality, motion artifact.
--- NOTE | 2021-08-20 16:08 | Orthopedic Consultation ---
Date of Consultation August 20, 2021 Assessment & Plan (1) Intertrochanteric fracture of right femur: Patient was seen today in her room. She is a very poor historian. This may be related to narcotics. Patient did receive 8 mg of morphine in the ED within 2-1/2 hours. She also received another dose of 2 mg this afternoon at 2 PM. I did call her residential facility and speak with the sales force administrator at the [facility]. She stated that the patient normally is self-sufficient, drives herself, is an ambulator with a walker, and usually is able to answer all questions. The patient does have known diabetes, depression, anxiety, and Parkinson's, and typically has tremors in her extremities as well as when answering questions. She has no current tremors today. It was noted that she is currently and has been estranged from her family, including her children. She has not had a known visitor in at least 2 years. She has no known power of collections attorney according to the facility. I did recommend to the patient that she proceed with surgical intervention for her hip fracture, if she would like to remain mobile. In her current state, I am not sure that she understood my discussion and recommendation. As such, she will tentatively be scheduled for the OR tomorrow morning. Rubén tional attempts will need to be made for informed consent when she is more coherent. She will be made n.p.o. after midnight. Preop antibiotics have already been ordered. History of Present Illness Reason for Consultation: Right hip pain Attending Physician: Elliott Ruff MD History of Present Illness This 81-year-old female was seen today in her room, for evaluation of her right hip. Patient is currently very somnolent and is a poor historian. She can only tell me that she fell. Review of her medical record shows that she lives at the [facility], and was found on the floor this morning. It is assumed she fell sometime overnight. She denies having any other areas of discomfort. When asked whether she has any other medical problems, she states no. What she was doing prior to falling, she states I do not know. When asked if she has any other areas that hurt, she just smiles and shrugs her shoulders. When asked if she lives with anyone, she first states yes, then states no, then states yes. She cannot give me any names of contacts. Patient has already been seen by the ED and hospitalist service. Allergies Allergy/AdvReac Type Severity Reaction Status Date / Time codeine Allergy Severe SEVERE Verified 08/20/21 12:26 HEADACHE, NAUSEA & VOMITING morphine Allergy Severe SEVERE Verified 08/20/21 12:26 HEADACHE, NAUSEA, & VOMITING pentazocine [From [facility]] Allergy Severe DECREASED Verified 08/20/21 12:26 MOTOR SKILL, SOB. lactose Allergy Unknown ON MED Verified 08/20/21 12:26 LIST FROM [facility] Medications Medication Instructions Recorded Confirmed Type omeprazole 20 mg tablet,delayed 20 mg PO AMHS 10/14/18 08/20/21 History release primidone 50 mg tablet 50 mg PO BID 05/31/19 08/20/21 History acetaminophen 325 mg tablet 650 mg PO Q6H PRN #30 tab 02/13/20 08/20/21 Rx melatonin 5 mg tablet 5 mg PO HS 02/13/20 08/20/21 History naproxen sodium 220 mg tablet 220 mg PO Q12H PRN 02/13/20 08/20/21 History (Aleve) aspirin 81 mg chewable tablet 81 mg PO DAILY 08/20/21 08/20/21 History bisacodyl 10 mg rectal suppository 10 mg ID DAILY PRN 08/20/21 08/20/21 History (Dulcolax (bisacodyl)) carbidopa ER 50 mg-levodopa 200 mg 1 tab PO BID 08/20/21 08/20/21 History tablet,extended release clonazepam 0.5 mg tablet 0.5 mg PO BID 08/20/21 08/20/21 History docusate sodium 100 mg capsule 100 mg PO BID PRN 08/20/21 08/20/21 History (Colace) ergocalciferol (vitamin D2) 1,250 1,250 mcg PO DAILY 08/20/21 08/20/21 History mcg (50,000 unit) capsule (Vitamin D2) escitalopram oxalate 20 mg tablet 20 mg PO DAILY 08/20/21 08/20/21 History (Lexapro) lisinopril 10 mg tablet 10 mg PO DAILY 08/20/21 08/20/21 History magnesium hydroxide 400 mg/5 mL 30 ml PO DAILY PRN 08/20/21 08/20/21 History oral suspension (Milk of Magnesia) ondansetron 4 mg disintegrating 4 mg PO Q6H PRN 08/20/21 08/20/21 History tablet sennosides 8.6 mg-docusate sodium 1 tab-cap PO HS 08/20/21 08/20/21 History 50 mg tablet vitamin B12 0.5 mg-folic acid 1 mg 1 tab PO DAILY 08/20/21 08/20/21 History tablet Patient History Medical History Anxiety and depression Chronic back pain Constipation Diabetes mellitus, type II Do not resuscitate status Dyslipidemia Gastroesophageal reflux disease GERD (gastroesophageal reflux disease) HTN (hypertension) Hx of diabetic gastroparesis Hx of migraines Hypokalemia Intractable nausea and vomiting Malnutrition Obesity Parkinson disease Tremor Surgical History History of cervical spinal surgery X 2 History of lumbosacral spine surgery X2 History of open reduction and internal fixation (ORIF) procedure RIGHT WRIST History of tubal ligation Hx of cataract surgery RIGHT AND LEFT Hx of cholecystectomy Hx of tonsillectomy Family History Father , 51 Myocardial infarction Hypertension Social History Smoking Status: Unknown if ever smoked Second Hand Exposure: No; Do You Dip or Chew Tobacco: No; Tobacco Cessation Education Requested by Patient: No Hx Alcohol Use: No Hx Substance Use: No Preferred Language: Yoruba Communication Ability: Effective Communication Ability Comment: feels a little fuzzy [employer] 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 Laying on the bed. Falls asleep frequently during my exam. Unable to answer simple questions reliably. Skin: Warm and dry with fair turgor. No rashes or lesions. She does have heel protector pads on both heels. HEENT: Normocephalic, atraumatic. Eyes PERRLA. EOMI. Nares: Patent without drainage. Oropharynx: Without erythema or exudate. No lesions noted. Oral mucosa somewhat dry. Heart: RRR, no MGR. Peripheral pulses are 2+ in the lower extremities. Lungs: Clear to auscultation bilaterally. No crackles, rhonchi, or wheezing. Fair air movement. Abdomen: Obese. Bowel sounds present x4. Soft nontender. No organomegaly. Musculoskeletal: Patient has supple motion of both shoulders, elbows, and wrists. Supple motion of the left hip, knee, and ankle. Right leg is externally rotated and shortened. Knee is flexed. She has focal pain with palpation over the greater trochanter as well as the anterior flexion crease. She has a significant increase in pain with gentle and limited motion of the right hip. Intact motor function of the right ankle and toes. Neurologic: Patient currently has no tremor in her upper or lower extremities. She has intact gross sensation by soft touch to the upper and lower extremities. Results & Data ([facility]) Vital Signs (Past 12 Hours) Vital Signs Temp Pulse Pulse Pulse Resp BP BP 08/20/21 15:27 37.0 C 69 18 174/91 H 08/20/21 14:09 85 18 168/108 H 08/20/21 12:10 76 18 168/83 H 08/20/21 11:38 83 17 181/115 H 08/20/21 10:15 08/20/21 10:01 84 16 205/115 H 08/20/21 08:59 37.1 C 86 18 236/146 H Pulse Ox 08/20/21 15:27 96 08/20/21 14:09 96 08/20/21 12:10 92 08/20/21 11:38 92 08/20/21 10:15 98 08/20/21 10:01 100 08/20/21 08:59 96 Laboratory Results Covid test obtained today is negative. White count and H&H are within normal limits. INR is normal at 1.0. Sodium normal at 143, potassium low at 3.1. Chloride normal at 107. BUN and creatinine are also normal. Troponin was normal today. Urine analysis is also normal. Diagnostic Findings CT scan imaging of the head obtained today shows no acute intracranial abnormality. There are age-related involutional changes. Hip films show a slightly comminuted intertrochanteric fracture of the right femur. Chest x-ray shows no acute process. No pulmonary edema or pleural effusion. ECG Additional Comments: EKG obtained today shows a normal sinus rhythm with a rate of 85. No acute ST or T wave changes.
[2021-08-20] MEDS: CARBIDOPA/LEVODOPA 50/200MG EXT REL TAB PO SCH ×2 (17:53→20:34)
[2021-08-20] MEDS: ESCITALOPRAM OXALATE 20 MG TAB PO SCH (17:54)
[2021-08-20] MEDS: PRIMIDONE 50 MG TAB PO SCH ×2 (17:55→20:36)
--- NOTE | 2021-08-20 18:31 | Consultation Report ---
DATE OF SERVICE: 08/20/2021 The patient is seen in conjunction with Jez Stinson PA-C. For further details, refer to his dicta tion. He and I saw and evaluated this patient together and I am in agreement with the plan. HISTORY OF PRESENT ILLNESS: Holly is 81 years old and she remembers falling today. This happened at the [facility]. Beyond that, she is oriented to person only and not to place or time. She does not resp ond in a meaningful way to questions and may be confused because of her injury or from pain medicatio n. She is aware that she injured her right leg, but does not recall having a fracture. PHYSICAL EXAMINATION: She responds to questions, although she does not give very good answers. She is awake, but falls asleep easily. Her head is atraumatic and she moves both upper extremities witho ut difficulty. She has good movement of her left leg. The right leg is flexed and externally rotate d. There is tenderness of the right upper thigh without notable bruising or swelling. The remainder of the right lower extremity is nontender. She has a good 1+ dorsalis pedis pulse and reports gross ly intact sensation in the right leg and she can flex and extend the ankle with 5-/5 strength, but do es not really comply with eversion of the foot. Her radiographs demonstrate an intertrochanteric fracture. Her labs are noted and reviewed. Her pas t medical history is also noted and reviewed along with her medications. Her head CT was negative. Her hip x-ray shows internal fixation within the lumbar spine and there appears to be an intertrochan teric fracture, which is shortened and rotated on the right side. White count is 5, hemoglobin is 14.5, hematocrit 43, platelets are 198. PT/INR normal. Her PRP is n oted. Potassium is slightly low. Hemoglobin A1c is 5.7 in June. UA negative. COVID negative. PLAN: I contacted the patient's friend who was listed on the chart; this is Tory, phone number . Tory also reports that she has power of civil rights attorney and legal documentation. I discussed with her what is going on with Holly. I have talked about her injury. We reviewed the pros and co ns of operative and nonoperative management. If there is a benefit to be had, which I think there is , I would recommend that she have surgery to stabilize her break and promote early mobility and hopef ully return to function. It sounds like she has been declining lately. Tory has not seen her in a bout a month. Previously, she was ambulating and using an assistive device and occasionally did driv e and went shopping using a shopping cart. We talked about problems related to not doing surgery as well as the risks and benefits of doing the operation. I would recommend an intertrochanteric nail. At this time, I went over the informed consent with her on the phone. She will be in tomorrow favio thurman to visit with Holly and discuss what she would like to do. If possible, she could sign the infor med consent at that time and also do the anesthesia consent. I would be happy to answer any further questions. She is currently n.p.o. and added on to the OR schedule for tomorrow. She is not on any blood thinne rs. Job ID: [id number]
[2021-08-20] MEDS: MELATONIN 3 MG TAB PO SCH (20:35)
[2021-08-20] MEDS: ACETAMINOPHEN 500 MG TAB PO SCH (20:35)
[2021-08-20] MEDS: DOCUSATE SODIUM/SENNA 50/8.6MG TAB PO SCH (20:35)
[2021-08-20] MEDS: PANTOprazole 40 MG TAB PO SCH (20:35)
[2021-08-20] MEDS ORDERED: PRIMIDONE 50 MG TAB PO SCH (21:00)
[2021-08-20] MEDS ORDERED: DOCUSATE SODIUM/SENNA 50/8.6MG TAB PO SCH (21:00)
[2021-08-20] MEDS ORDERED: CARBIDOPA/LEVODOPA 50/200MG EXT REL TAB PO SCH (21:00)
[2021-08-21] MEDS: KETOROLAC TROMETHAMINE 15 MG/ML VIAL IV PRN (00:13)
[2021-08-21] MEDS: MELATONIN 3 MG TAB PO SCH (00:17)
[2021-08-21] MEDS ORDERED: MoRPHine SULFATE 4 MG/ML 1 ML CARP\\VIAL IV STA (00:54)
[2021-08-21] MEDS ORDERED: ceFAZolin 2000MG 2,000 MG/15 ML SYR IV SCH (06:00)
[2021-08-21] MEDS: ACETAMINOPHEN 500 MG TAB PO SCH ×3 (06:07→20:39)
[2021-08-21] MEDS ORDERED: SODIUM CHLORIDE 0.9% 1000ML 1,000 ML IV SCH (06:45)
--- NOTE | 2021-08-21 07:24 | Progress Notes ---
DATE OF SERVICE: 08/21/2021. Holly is in bed. She is sleeping. She is arousable. She is able to follow commands to wiggle her toes. She is oriented only to her first name. She knows that she has pain, but is not able to loca lize left or right hip. She thinks that she is at the [facility]. She does not verbalize what her injury is or why she is here. I asked her if she wanted to have surgery and she said no, but I do not know whether she is comprehending the full situation. I discussed with her that surgery would help stabil ize her broken bone and allow her to have greater comfort and the opportunity for better mobility. H er power of trade mark attorney will be coming in later this morning and we will coordinate care from there. I spoke with Ernestina Hansen last evening. If OR consent is given, then we will also need the anesthesia c onsent signed. Overnight, she was afebrile. Her vital signs were fine. Her urine output has been l ow and is being addressed with fluid bolus. Job ID: [id number]
[2021-08-21 07:34] LABS: Hematocrit (blood only) 37.8 % (37-47); Hemoglobin 12.6 g/dL (12.0-16.0); Mean Corpuscular Hemoglobin 30.4 pg (25-34); Mean Corpuscular Hgb Conc 33.3 g/dL (32-36); Mean Corpuscular Volume 91.3 fL (80-100); Mean Platelet Volume 11.3 fL (7.4-10.4); Platelet Count 182 K/uL (130-400); RDW Coefficient of Variation 14.5 % (11.5-14.5); RDW Standard Deviation 48.8 fL (36.4-46.3); Red Blood Count 4.14 M/uL (4.2-5.4); White Blood Count 9.33 K/uL (4.8-10.8)
[2021-08-21 08:47] LABS: BUN Creatinine Ratio 27.5 (10-20); Calcium 8.7 mg/dl (8.5-10.1); Creatinine Clr Calc Pharmacy 52.4 ml/min; Est GFR (African American) 76.7 ml/min; Est GFR (Non-African American) 66.2 ml/min
[2021-08-21] MEDS ORDERED: ESCITALOPRAM OXALATE 20 MG TAB PO SCH (09:00)
[2021-08-21] MEDS: ESCITALOPRAM OXALATE 20 MG TAB PO SCH (10:06)
[2021-08-21] MEDS: CARBIDOPA/LEVODOPA 50/200MG EXT REL TAB PO SCH ×2 (10:06→20:38)
[2021-08-21] MEDS: PRIMIDONE 50 MG TAB PO SCH ×2 (10:06→20:38)
[2021-08-21] MEDS: CYANOCOBALAMIN 500 MCG TABLET (VITAMIN B-12) PO SCH (10:06)
[2021-08-21] MEDS: ASPIRIN 81 MG CHEW PO SCH (10:06)
[2021-08-21] MEDS: PANTOprazole 40 MG TAB PO SCH ×2 (10:07→20:38)
[2021-08-21] MEDS: FOLIC ACID 1 MG TAB PO SCH (10:07)
[2021-08-21] MEDS ORDERED: BUPIVACAINE 0.5 % 5 MG/1 ML MPF 30ML VIAL ONE (11:42)
[2021-08-21] MEDS ORDERED: LIDOCAINE 1% LOCAL 20 ML VIAL ONE (11:42)
[2021-08-21] MEDS ORDERED: fentaNYL citrate 100 MCG/2 ML VIAL ONE ×2 (11:51→16:04)
--- NOTE | 2021-08-21 11:51 | Hospitalist Progress Note ---
Date of Service August 21, 2021 Assessment & Plan (1) Intertrochanteric fracture of right femur: Plan: This is an 81yo F patient residing at [facility] with a PMH of DM II, Parkinson's disease, HTN, GERD, chronic back pain, depression and anxiety who presents from [facility] after a fall onto R side and was found to have slightly comminuted intertrochanteric fracture within the proximal right femur. Staff heard patient yelling for help and found her lying on the floor on right ride Hip/pelvis XR with slightly comminuted intertrochanteric fracture within the proximal right femur Orthopedics on board, Dr. Cruz Pain control, pre-op abx, prado placement per ortho order set NPO Consent obtained from POA Plan is for OR at some point today (2) Acute metabolic encephalopathy: Plan: Progressive decline over the past month with increased confusion and falls, has history of Parkinsons Notably worse confusion since Klonopin changed from PRN to scheduled BID 3 weeks ago, so possibly drug induced encephalopathy CT head without acute intracranial abnormality. Afebrile, no leukocytosis, UA unremarkable Will plan to hold Klonopin for now. Gentle IV fluids. Consider MRI brain if no improvement Pt remains alert to self only today, may be insetting of IV morphine Dr Ruff will re assess post operatively (3) Hypokalemia: Plan: Initial K 3.1. Replaced. follow BMP, resolved (4) HTN (hypertension): Plan: continue home lisinopril, 156/80 may be elevated in setting of pain, monitor and optimize (5) Parkinson disease: Plan: Continue cabidopa-levodopa, primidone (6) Diabetes mellitus, type II: Plan: A1c 5.7 in Jun Diet controlled will place on accuchecks pre/post operatively for 48 hours given confusion, if normal will d/c at that time (7) Anxiety and depression: Plan: Continue Lexapro, Holding Klonopin for now DVT Ppx: SCDs in setting of possible surgery Code status: DNR per previous admission, paperwork from [facility] PCP: [facility] Dispo: Admitted to med/surg Will update friend Tory/SHABBIR at [phone] Patient seen in collaboration with Dr. Ruff. Please see addendum. Admission and Anticipated Discharge Date Admission Date: August 20, 2021 Supervising Physician Co-Signing Physician Notes Attending Addendum: delayed entry date of service noted above care coordinated with ZULAY Hull please refer to her notes for full details, I agree with her notes patient seen and examined, records reviewed by myself as well on exam, patient seen resting in bed, not in distress drowsy but answers questions confused, but calm , cooperative has minimal R hip pain no chest pain, dyspnea, palpitations, dizziness, nausea no other symptoms VS noted and reviewed oriented x 0 , not in distress, speaks in sentences with no effort nor accessory muscle use normal rate, regular rhythm, no murmurs clear breath sounds bilaterally non distended, soft, nontender R hip with dressing in place - no bleeding no bipedal edema, erythema, warmth no neuro deficits WBC 9.3 Hg 12.6 Crea 0.8 ASSESSMENT AND PLAN R HIP FRACTURE s/p Right Hip Closed Reduction, Internal Fixation with Trochanteric Nailing(Right) - Vaughn Cruz MD stable overall so far monitor Hg DVT prophylaxis when ok with Ortho ALTERED MENTAL STATUS hold Clonipine monitor other diagnoses and plan of care as per ZULAY Ruff MD Subjective Patient was seen and examined in 379 bed 2. Follow-up right femur fracture. Patient lying in bed, awake and alert ROS unobtainable due to underlying cognition. Discussed with nursing staff, patient's POA came in this morning and signed or consents. Review of Systems Review of Systems: Unobtainable due to cognitive status Physical Exam Physical Exam: Gen: Elderly, F, WD/WN, NAD, Alert and arousable to self but not oriented HEENT: Normocephalic, atraumatic, conjunctivae moist, sclerae anicteric, mucous membranes dry. Resting lip tremor Lung: Clear to Auscultation bilaterally, no wheezes/rales/rhonchi Heart: Regular rate, regular rhythm, no murmurs, rubs, or gallops Abdomen: Soft, NT, ND +BS x 4 Extremities: No edema, RLE externally rotated and shortened Skin: Warm, no rash, negative turgor. : prado, yellow urine noted in cath Results & Data Results & Data ([facility]) Vital Signs (Past 12 Hours) Vital Signs Temp Pulse Resp BP Pulse Ox 08/21/21 07:20 37.3 C 84 18 156/80 H 93 Laboratory Results Short CBC 08/21/21 Range/Units 06:53 WBC 9.33 (4.8-10.8) K/uL Hgb 12.6 (12.0-16.0) g/dL Hct 37.8 (37-47) % Plt Count 182 (130-400) K/uL BMP 08/21/21 06:53 Sodium 141 Potassium 4.0 D Chloride 110 H Carbon Dioxide 23 BUN 23 H D Creatinine 0.82 Glucose 123 H Calcium 8.7 Urine 08/20/21 Range/Units 10:33 Urine Color Yellow Urine Appearance Clear (Clear) Urine pH 8.5 H (4.5-7.5) Ur Specific [place] 1.009 (1.000-1.030) Urine Protein Negative (Negative) Urine Glucose (UA) Negative (Negative) Medications Administered Current Inpatient Medications Acetaminophen (Acetaminophen 500 Mg Tab) 1,000 mg PO Q8H [facility] Stop: 09/19/21 21:29 Last Admin: 08/21/21 06:07 Dose: Not Given Documented by: Aspirin (Aspirin 81 Mg Chew) 81 mg PO DAILY [facility] Stop: 09/20/21 08:59 Last Admin: 08/21/21 10:06 Dose: Not Given Documented by: Bisacodyl (Bisacodyl 10 Mg Supp) 10 mg WV DAILY PRN PRN Reason: Constipation Stop: 09/19/21 14:00 Bisacodyl (Bisacodyl 10 Mg Supp) 10 mg WV DAILY PRN PRN Reason: Constipation Stop: 09/19/21 15:09 Carbidopa/Levodopa (Carbidopa/Levodopa 50/200mg Ext Rel Tab) 1 tab PO BID [facility] Stop: 09/19/21 14:19 Last Admin: 08/21/21 10:06 Dose: 1 tab Documented by: Clonazepam (Clonazepam 0.5 Mg Tab) 0.5 mg PO BID [facility] Stop: 09/19/21 15:14 Cyanocobalamin (Cyanocobalamin 500 Mcg Tablet (Vitamin B-12)) 500 mcg PO DAILY [facility] Stop: 09/20/21 08:59 Last Admin: 08/21/21 10:06 Dose: Not Given Documented by: Dextrose (Dextrose 50% 50 Ml Syringe) 25 - 50 ml IV UD PRN; Protocol PRN Reason: Hypoglycemia Protocol Stop: 09/20/21 12:02 Docusate Sodium (Docusate Sodium 100 Mg Cap) 100 mg PO BID PRN PRN Reason: Constipation Stop: 09/19/21 14:00 Ergocalciferol (Ergocalciferol 50,000 Units 1250 Mcg Cap) 50,000 units PO Fr@0900 [facility] Stop: 09/23/21 08:59 Escitalopram Oxalate (Escitalopram Oxalate 20 Mg Tab) 20 mg PO DAILY [facility] Stop: 09/19/21 15:29 Last Admin: 08/21/21 10:06 Dose: 20 mg Documented by: Folic Acid (Folic Acid 1 Mg Tab) 1 mg PO DAILY [facility] Stop: 09/20/21 08:59 Last Admin: 08/21/21 10:07 Dose: Not Given Documented by: Glucagon (Glucagon For Inj 1 Mg Vial) 1 mg SQ UD PRN; Protocol PRN Reason: Hypoglycemia Protocol Stop: 09/20/21 12:02 Glucose (Glucose 10 Tabs/Tube) 4 - 8 tabs PO UD PRN; Protocol PRN Reason: Hypoglycemia Protocol Stop: 09/20/21 12:02 Glucose (Glucose 40% Gel 15 Gm Tube) 15 - 30 gm PO UD PRN; Protocol PRN Reason: Hypoglycemia Protocol Stop: 09/20/21 12:02 Hydralazine HCl (Hydralazine Hcl 20 Mg/Ml Vial) 5 mg IV Q6H PRN PRN Reason: hypertension Stop: 09/19/21 18:44 Cefazolin Sodium (Ancef 2000mg) 2,000 mg in 15 mls @ 3.75 mls/min IV PREOP [facility]IND[facility]Y; Protocol Sodium Chloride (Nss 1000ml) 1,000 mls @ 80 mls/hr IV .[id number] [facility] Stop: 09/20/21 06:44 Last Admin: 08/21/21 07:57 Dose: 80 mls/hr Documented by: Ketorolac Tromethamine (Ketorolac Tromethamine 15 Mg/Ml Vial) 15 mg IV Q6H PRN PRN Reason: Pain Stop: 08/25/21 18:33 Last Admin: 08/21/21 00:13 Dose: 15 mg Documented by: Magnesium Hydroxide (Magnesium Hydroxide Susp 30 Ml Udc) 30 ml PO DAILY PRN PRN Reason: Constipation Stop: 09/19/21 14:00 Magnesium Hydroxide (Magnesium Hydroxide Susp 30 Ml Udc) 30 ml PO DAILY PRN PRN Reason: Constipation Stop: 09/19/21 15:09 Melatonin (Melatonin 3 Mg Tab) 3 mg PO HS [facility] Stop: 09/19/21 20:59 Last Admin: 08/21/21 00:17 Dose: 3 mg Documented by: Miscellaneous (Carbohydrates For Hypoglycemia ) 15 - 30 gm PO UD PRN PRN Reason: Hypoglycemia Protocol Stop: 09/20/21 12:02 Morphine Sulfate (Morphine Sulfate 2 Mg/Ml Carp) 2 mg IV Q4H PRN PRN Reason: Severe Pain Stop: 09/03/21 15:09 Naloxone HCl (Naloxone Hcl 0.4 Mg/1 Ml Vial/Carp) 0.1 mg IV UD PRN PRN Reason: Opiate Overdose Stop: 09/19/21 15:09 Olanzapine (Olanzapine 10 Mg/2.1 Ml Sdv) 5 mg IM Q6H PRN PRN Reason: Agitation Stop: 09/19/21 15:09 Ondansetron HCl (Ondansetron Inj 2 Mg/Ml 2 Ml Vial) 4 mg IV Q6H PRN PRN Reason: Nausea And Vomiting Stop: 09/19/21 15:09 Pantoprazole Sodium (Pantoprazole 40 Mg Tab) 40 mg PO AMHS [facility] Stop: 09/19/21 20:59 Last Admin: 08/21/21 10:07 Dose: Not Given Documented by: Primidone (Primidone 50 Mg Tab) 50 mg PO BID [facility] Stop: 09/19/21 15:29 Last Admin: 08/21/21 10:06 Dose: 50 mg Documented by: Senna/Docusate Sodium (Docusate Sodium/Senna 50/8.6mg Tab) 2 tab PO HS [facility] Stop: 09/19/21 20:59 Last Admin: 08/20/21 20:35 Dose: 2 tab Documented by:
[2021-08-21] MEDS ORDERED: PROPOFOL IV EMULSION 10 MG/ML 20 ML VIAL IV ONE ×2 (11:54→15:48)
[2021-08-21] MEDS ORDERED: LIDOCAINE 2% 2 ML VIAL/AMP(20MG/ML) INFIL ONE (11:54)
[2021-08-21] MEDS ORDERED: GLUCAGON FOR INJ 1 MG VIAL SQ PRN (12:03)
[2021-08-21] MEDS ORDERED: GLUCOSE 10 TABS/TUBE PO PRN (12:03)
[2021-08-21] MEDS ORDERED: GLUCOSE 40% GEL 15 GM TUBE PO PRN (12:03)
[2021-08-21] MEDS ORDERED: DEXTROSE 50% 50 ML SYRINGE IV PRN (12:03)
[2021-08-21] MEDS ORDERED: CARBOHYDRATES FOR HYPOGLYCEMIA PO PRN (12:03)
--- NOTE | 2021-08-21 12:58 | History & Physical Bridge Note ---
Date of Service August 21, 2021 History & Physical Bridge Note I have examined the patient, reviewed the History & Physical and in the interval since the performance of the History & Physical I have noted the following changes of clinical significance: no changes noted DP 1+, wiggles toes, dosent comply with sensory exam, plan right hip troch nail, consent signed by POA>
[2021-08-21] MEDS ORDERED: ONDANSETRON INJ 2 MG/ML 2 ML VIAL IV PRN (13:17)
[2021-08-21] MEDS ORDERED: ePHEDrine sulfate 50 MG/ML AMP IV PRN (13:17)
[2021-08-21] MEDS ORDERED: BUPIVACAINE 0.5 % 5 MG/1 ML PF 10ML VIAL ONE (13:17)
[2021-08-21] MEDS ORDERED: ATROPINE SULFATE 0.1 MG/ML 10ML SYR IV PRN (13:17)
[2021-08-21] MEDS ORDERED: ONDANSETRON INJ 2 MG/ML 2 ML VIAL ONE (14:02)
[2021-08-21] MEDS ORDERED: GELATIN SPONGE SZ 100 ONE (16:02)
[2021-08-21] MEDS ORDERED: THROMBIN 5000 UNITS KIT ONE (16:02)
--- NOTE | 2021-08-21 16:30 | Operative Report ---
Post Operative Report Pre & Post Diagnosis Operation Date: 08/21/21 09:25 Pre-Op Diagnosis: Right intertrochanteric fracture Post-Op Diagnosis: Right intertrochanteric fracture I identified the patient and participated in the time-out.: Yes Procedure Operation Date: 08/21/21 09:25 Actual Procedures p Right Hip Closed Reduction, Internal Fixation with Trochanteric Nailing(Right) - Vaughn Cruz MD Surgeon Vaughn Cruz MD Director It Mimi Cline physicians veterinary assistant technician, Johnnie Box fellow. Estimated Blood Loss 50 Findings Consistent with Post-Op Diagnosis Specimens None Anesthesia Type Spinal MAC Complications none Disposition Accompanied Patient To Recovery: No Disposition: Recovery Room Indications Patient is 81. She is status post a fall. She has sustained a right intertrochanteric fracture. The patient has an altered mental status. Her power of consumer attorney has consented to surgery which I have recommended. The options and risks and benefits of each treatment have been discussed. Description of Procedure Informed consent obtained. Patient identified. The right hip was identified as the operative site and I marked with my initials. A preoperative surgical timeout was performed and a preop dose of IV antibiotics was given. She was taken to the operating room and positioned on the OR table. The table was shifted towards the operative side. The left arm was placed out on an arm board and the right arm was wrapped across the chest with some padding and secured with tape. A padded perineal post was applied and the left leg was able to be placed into 90/90 position with padding under the calf. Palpable pulse dorsalis pedis. The right leg was placed into longitudinal traction. The leg was prescrubbed and prepped and draped in usual sterile fashion. DVT prophylaxis with an SCD on the nonoperative limb during surgery and postoperatively early mobility mechanical devices and chemoprophylaxis likely with Lovenox. Fluo roscopic guidance was utilized throughout the surgery. I tried various maneuvers in terms of closure duction but there was a fair amount of medial were displacement of the distal fragment. I tried some traction flexion and rotation to try to unlock this. There was a anterolateral fragment proximally with a spike protruding distally. This piece was somewhat loose and remained displaced despite improvement in the overall alignment distally of the main fracture. Eventually what I found was that fair amount of longitudinal traction aided in the reduction with slight internal rotation showing that the pieces seem to roberts in the best. A 6 to 7 cm incision was made just proximal to and in line with the trochanter. Electrocautery was utilized down to subcutaneous tissues and the fascia was i dentified and divided in line with the incision. The tip of the trochanter was identified and a guidepin was introduced to the tip of the trochanter and in line with the shaft. Adjusted x2 and then overreamed with a large reamer taking care to protect the lateral cortex. An intramedullary guidewire was introduced and confirmed to be intramedullary with orthogonal fluoroscopy. The jose length was determined to be 360 mm allowing for distraction at the fracture site. The jose was assembled and advanced to the appropriate location. After the jose had across the fracture site the guidewire was removed. The pin was inserted through a lateral percutaneous incision using the triple trocar. This was just below center on the AP view and slightly posterior on the lateral. This required adjustment x2. Length determined to be 90 mm. The lateral reamer and the triple reamer were utilized followed by insertion of the spiral blade until completely seated. The setscrew was advanced and the proximal apparatus was removed. [employer] AP and lateral images were obtained. At this point traction was let off of the leg which resulted in no significant change in alignment. A single percutaneous distal interlocking screw in the dynamic slot was inserted using the perfect kwethluk technique. [employer] images obtained. The distal incision was closed with 2-0 Vicryl and maximino after irrigation. The proximal incision was closed with #1 Vicryl for the fascia 0 Vicryl for the subcu tissue and 2-0 Vicryl for the state skin followed by maximino. There was some bleeding in the upper incision posterior skin flap which was controlled with cautery and a pursestring 2-0 Vicryl stitch. The wound was dry at the time of closure. The middle incision did show a fair amount of oozing and this felt was due to a venous plexus in the posterior fat which was cauterized. This was held with pressure for several minutes and no further bleeding was noted. All incisions were irrigated. The middle incision was closed with 0 Vicryl 2-0 Vicryl and maximino. The leg was cleaned wet and dry sponges and a bulky soft sterile dressing was applied Xeroform 4 x 4's ABD foam tape. Patient awakened from anesthesia without difficulty taken to recovery in stable condition. There were no specimens or complications counts were correct blood loss was 50 cc. At the conclusion of the operation I spoke to the patient's power of consumer attorney informed her of my findings and gave a brief discussion of the postoperative plan. She may weight-bear as tolerated. Lovenox for DVT prophylaxis. She will need acute care rehab or jail facility. She is not able to return to independent assisted living at this time. Prior to inserting the jose a 12.5 mm reamer was advanced down through the isth mus with minimal to no cortical chatter prior to advancing the 11 mm diameter trochanteric nail. The distal interlocking screw was 48 mm in length. The jose was 360 mm in length and ended just above the superior pole of the patella. The fracture remained anatomically aligned with the exception that the anterior metaphyseal fragment was displaced and angled slightly anteriorly. The overall fracture geometry was excellent as was the positioning of the hardware. Bone quality reasonably adequate given her age. I attest to the content of the Intraoperative Record and any orders documented therein. Any exceptions are noted below.
--- NOTE | 2021-08-21 16:35 | Operative Report ---
Post Operative Report Pre & Post Diagnosis Operation Date: 08/21/21 09:25 Pre-Op Diagnosis: Right intertrochanteric fracture Post-Op Diagnosis: Right intertrochanteric fracture I identified the patient and participated in the time-out.: Yes Procedure Operation Date: 08/21/21 09:25 Actual Procedures p Right Hip Closed Reduction, Internal Fixation with Trochanteric Nailing(Right) - Vaughn Cruz MD Surgeon Raymundo Cruz [employer] Mimi Cline physicians residential assistant, Odalys Box fellow. Estimated Blood Loss 50 Findings Consistent with Post-Op Diagnosis Consistent with post op diagnosis Specimens no specimens Description of Procedure I participated in prepping, dressing and assisted Dr Cruz during the procedure. Please see Dr. Cruz note I attest to the content of the Intraoperative Record and any orders documented therein. Any exceptions are noted below. Supervising Physician Co-Signing Physician Notes Dr. Cruz
[2021-08-21] MEDS: fentaNYL citrate 100 MCG/2 ML VIAL IV PRN ×3 (16:47→17:04)
--- NOTE | 2021-08-21 16:56 | Fluoroscopy Report ---
INTRAOPERATIVE RADIOGRAPHS CLINICAL HISTORY: Open reduction and internal fixation of the right femur. Fluoroscopy time: 273 seconds. FINDINGS: 7 spot fluoroscopic views of the right femur are correlated with radiographs dated . Intertrochanteric and intramedullary nails have been placed transfixing an intertrochanteric/subtr ochanteric fracture. Near-anatomic alignment has been restored. The orthopedic hardware appears intac t. A single cortical lag screw transfixes the distal end of the intramedullary nail. IMPRESSION: Intraoperative images from open reduction and internal fixation of the right femur as abo ve. Electronically signed by: Daniel Hale M.D. 08/21/2021 4:55 PM
--- NOTE | 2021-08-21 17:40 | Anesthesiology Progress Note ---
Date of Service August 21, 2021 Anesthesia Post Procedure Vital Signs Vital Signs: Temp Pulse Pulse Resp BP Pulse Ox Pulse Ox 08/21/21 17:35 85 16 181/73 H 95 08/21/21 17:25 36.4 C L 86 17 183/95 H 94 08/21/21 17:15 87 20 175/87 H 93 08/21/21 17:05 82 13 188/82 H 95 08/21/21 16:55 80 16 184/93 H 94 08/21/21 16:45 79 20 175/94 H 96 08/21/21 16:35 36.1 C L 80 16 154/87 H 96 08/21/21 12:59 37.5 C 82 20 167/113 H 92 08/21/21 07:20 37.3 C 84 18 156/80 H 93 08/20/21 23:15 94 08/20/21 23:14 36.7 C 87 16 152/64 H 94 Pain Intensity Right Hip: Pain Intensity: 4 Transfer of Care Handoff Completed per policy Notes Mental Status: alert / awake / arousable and participated in evaluation Patient Amnestic to Procedure: Yes Nausea / Vomiting: adequately controlled Pain: adequately controlled Airway Patency, RR, SpO2: stable & adequate BP & HR: stable & adequate Hydration State: stable & adequate Neuraxial Anesthesia: was administered and sensory block is resolving Anesthetic Complications: no major complications apparent
[2021-08-21] MEDS: SODIUM CHLORIDE 0.9% 1000ML 1,000 ML IV SCH (18:17)
[2021-08-21] MEDS: MoRPHine SULFATE 2 MG/ML CARP IV PRN ×2 (19:30→23:33)
[2021-08-21] MEDS: clonazePAM 0.5 MG TAB PO SCH (20:36)
[2021-08-21] MEDS: DOCUSATE SODIUM/SENNA 50/8.6MG TAB PO SCH (20:37)
[2021-08-21] MEDS: ceFAZolin 2000MG 2,000 MG/15 ML SYR IV SCH (20:37)
[2021-08-22] MEDS: SODIUM CHLORIDE 0.9% 1000ML 1,000 ML IV SCH ×3 (01:38→22:53)
[2021-08-22] MEDS: ceFAZolin 2000MG 2,000 MG/15 ML SYR IV SCH ×2 (04:41→12:31)
[2021-08-22] MEDS: ACETAMINOPHEN 500 MG TAB PO SCH ×4 (04:42→20:44)
[2021-08-22] MEDS: KETOROLAC TROMETHAMINE 15 MG/ML VIAL IV PRN (07:54)
[2021-08-22] MEDS: ASPIRIN 81 MG CHEW PO SCH (07:56)
[2021-08-22] MEDS: clonazePAM 0.5 MG TAB PO SCH (07:56)
[2021-08-22] MEDS: PANTOprazole 40 MG TAB PO SCH ×2 (07:57→20:07)
[2021-08-22] MEDS: CYANOCOBALAMIN 500 MCG TABLET (VITAMIN B-12) PO SCH (07:57)
[2021-08-22] MEDS: lisinopril 10 MG TAB PO SCH (07:57)
[2021-08-22] MEDS: PRIMIDONE 50 MG TAB PO SCH ×2 (07:57→20:06)
[2021-08-22] MEDS: ENOXAPARIN INJ 40 MG/0.4 ML SYR SQ SCH (07:58)
[2021-08-22] MEDS: ESCITALOPRAM OXALATE 20 MG TAB PO SCH (07:58)
[2021-08-22] MEDS: FOLIC ACID 1 MG TAB PO SCH (07:58)
[2021-08-22] MEDS: CARBIDOPA/LEVODOPA 50/200MG EXT REL TAB PO SCH ×2 (07:59→20:08)
[2021-08-22 09:18] LABS: Basophils # (auto) 0.02 K/uL (0-0.2); Basophils % (auto) 0.3 %; Hematocrit (blood only) 29.8 % (37-47); Hemoglobin 9.9 g/dL (12.0-16.0); Immature Granulocytes # (auto) 0.01 K/uL (0.00-0.02); Immature Granulocytes % (auto) 0.1 %; Lymphocytes # (auto) 1.08 K/uL (1.2-3.4); Lymphocytes % (auto) 13.6 %; Mean Corpuscular Hemoglobin 30.7 pg (25-34); Mean Corpuscular Hgb Conc 33.2 g/dL (32-36); Mean Corpuscular Volume 92.5 fL (80-100); Mean Platelet Volume 10.7 fL (7.4-10.4); Monocytes # (auto) 0.82 K/uL (0.11-0.59); Monocytes % (auto) 10.4 %; Neutrophils # (auto) 5.99 K/uL (1.4-6.5); Neutrophils % (auto) 75.6 %; Platelet Count 141 K/uL (130-400); RDW Coefficient of Variation 14.2 % (11.5-14.5); RDW Standard Deviation 47.9 fL (36.4-46.3); Red Blood Count 3.22 M/uL (4.2-5.4); White Blood Count 7.92 K/uL (4.8-10.8)
[2021-08-22 09:46] LABS: BUN Creatinine Ratio 36.4 (10-20); Calcium 8.7 mg/dl (8.5-10.1); Creatinine Clr Calc Pharmacy 69.3 ml/min; Est GFR (African American) 96.6 ml/min; Est GFR (Non-African American) 83.4 ml/min; Potassium 3.8 mmol/L (3.5-5.1)
--- NOTE | 2021-08-22 11:17 | Orthopedic Progress Note ---
Date of Service August 22, 2021 Assessment & Plan (1) Hip fracture, right: Plan: POD 1 - s/p ORIF right hip would recommend PT/OT She may be out of bed to chair Weight bear as tolerated right lower extremity Use walker for assistance Ice to right hip as needed for pain/swelling Encourage and allow full range of motion right lower extremity joints. Reinforce dressings as needed, will plan to have them changed tomorrow Will discuss findings with Dr. Cruz and re-eval tomorrow. Case management for disposition. Admission and Anticipated Discharge Date Admission Date: August 20, 2021 Subjective Patient in bed, complaining of wanting out of here and to go home. She "doesn't know why she is here". States that she did have some pain in her right hip, but better now. Physical Exam Musculoskeletal: Right hip dressings clean, dry and intact. Some swelling right knee, mildly tender to touch. Unable to get her to follow my commands on trying to lift her right leg or move her toes or ankle. Skin is intact right lower extremity. Toes move well, no distal edema. SCD on right lower extremity, no tenderness with calf palpation. Dorsalis pedis pulse 1+. Tolearates log rolling of her right hip, but moans throughout entire visit. Results & Data ([facility]) Vital Signs (Past 12 Hours) Vital Signs Temp Pulse Resp BP Pulse Ox Pulse Ox 08/22/21 07:53 37.1 C 93 H 18 179/79 H 94 08/22/21 04:53 93 08/22/21 04:42 36.9 C 89 16 133/67 95 Laboratory Results 08/22/21 08/22/21 08/22/21 Range/Units 08:56 08:56 08:56 WBC 7.92 (4.8-10.8) K/uL RBC 3.22 L (4.2-5.4) M/uL Hgb 9.9 L (12.0-16.0) g/dL Hct 29.8 L (37-47) % MCV 92.5 (80-100) fL MCH 30.7 (25-34) pg MCHC 33.2 (32-36) g/dL RDW Std Deviation 47.9 H (36.4-46.3) fL RDW Coeff of Yareli 14.2 (11.5-14.5) % Plt Count 141 (130-400) K/uL MPV 10.7 H (7.4-10.4) fL Immature Gran % (Auto) 0.1 % Neut % (Auto) 75.6 % Lymph % (Auto) 13.6 % Izard % (Auto) 10.4 % Eos % (Auto) 0.0 % Baso % (Auto) 0.3 % Neut # (Auto) 5.99 (1.4-6.5) K/uL Lymph # (Auto) 1.08 L (1.2-3.4) K/uL Izard # (Auto) 0.82 H (0.11-0.59) K/uL Eos # (Auto) 0.00 (0-0.5) K/uL Baso # (Auto) 0.02 (0-0.2) K/uL Immature Gran # (Auto) 0.01 (0.00-0.02) K/uL Sodium 143 (136-145) mmol/L Potassium 3.8 (3.5-5.1) mmol/L Chloride 112 H (98-107) mmol/L Carbon Dioxide 25 (21-32) mmol/L Anion Gap 7.0 (3-11) BUN 22 H (7-18) mg/dl Creatinine 0.62 (0.6-1.2) mg/dl Est Cr Clr Drug Dosing 69.3 ml/min Est GFR ( Amer) 96.6 ml/min Est GFR (Non-Af Amer) 83.4 ml/min BUN/Creatinine Ratio 36.4 H (10-20) Glucose 109 H (70-99) mg/dl POC Glucose (70-99) mg/dl Calcium 8.7 (8.5-10.1) mg/dl 25-OH Vitamin D Total 46.7 (30-100) ng/ml 08/22/21 08/21/21 08/21/21 Range/Units 08:06 20:39 16:38 WBC (4.8-10.8) K/uL RBC (4.2-5.4) M/uL Hgb (12.0-16.0) g/dL Hct (37-47) % MCV (80-100) fL MCH (25-34) pg MCHC (32-36) g/dL RDW Std Deviation (36.4-46.3) fL RDW Coeff of Yareli (11.5-14.5) % Plt Count (130-400) K/uL MPV (7.4-10.4) fL Immature Gran % (Auto) % Neut % (Auto) % Lymph % (Auto) % Izard % (Auto) % Eos % (Auto) % Baso % (Auto) % Neut # (Auto) (1.4-6.5) K/uL Lymph # (Auto) (1.2-3.4) K/uL Izard # (Auto) (0.11-0.59) K/uL Eos # (Auto) (0-0.5) K/uL Baso # (Auto) (0-0.2) K/uL Immature Gran # (Auto) (0.00-0.02) K/uL Sodium (136-145) mmol/L Potassium (3.5-5.1) mmol/L Chloride (98-107) mmol/L Carbon Dioxide (21-32) mmol/L Anion Gap (3-11) BUN (7-18) mg/dl Creatinine (0.6-1.2) mg/dl Est Cr Clr Drug Dosing ml/min Est GFR ( Amer) ml/min Est GFR (Non-Af Amer) ml/min BUN/Creatinine Ratio (10-20) Glucose (70-99) mg/dl POC Glucose 105 H 104 H 105 H (70-99) mg/dl Calcium (8.5-10.1) mg/dl 25-OH Vitamin D Total (30-100) ng/ml 08/21/21 Range/Units 12:14 WBC (4.8-10.8) K/uL RBC (4.2-5.4) M/uL Hgb (12.0-16.0) g/dL Hct (37-47) % MCV (80-100) fL MCH (25-34) pg MCHC (32-36) g/dL RDW Std Deviation (36.4-46.3) fL RDW Coeff of Yareli (11.5-14.5) % Plt Count (130-400) K/uL MPV (7.4-10.4) fL Immature Gran % (Auto) % Neut % (Auto) % Lymph % (Auto) % Izard % (Auto) % Eos % (Auto) % Baso % (Auto) % Neut # (Auto) (1.4-6.5) K/uL Lymph # (Auto) (1.2-3.4) K/uL Izard # (Auto) (0.11-0.59) K/uL Eos # (Auto) (0-0.5) K/uL Baso # (Auto) (0-0.2) K/uL Immature Gran # (Auto) (0.00-0.02) K/uL Sodium (136-145) mmol/L Potassium (3.5-5.1) mmol/L Chloride (98-107) mmol/L Carbon Dioxide (21-32) mmol/L Anion Gap (3-11) BUN (7-18) mg/dl Creatinine (0.6-1.2) mg/dl Est Cr Clr Drug Dosing ml/min Est GFR ( Amer) ml/min Est GFR (Non-Af Amer) ml/min BUN/Creatinine Ratio (10-20) Glucose (70-99) mg/dl POC Glucose 110 H (70-99) mg/dl Calcium (8.5-10.1) mg/dl 25-OH Vitamin D Total (30-100) ng/ml (1) Hip fracture, right Encounter type: initial encounter Fracture type: closed Qualified Code(s): S72.001A - Fracture of unspecified part of neck of right femur, initial encounter for closed fracture
--- NOTE | 2021-08-22 16:42 | Hospitalist Progress Note ---
Date of Service August 22, 2021 Assessment & Plan (1) Intertrochanteric fracture of right femur: Plan: This is an 81yo F patient residing at [facility] with a PMH of DM II, Parkinson's disease, HTN, GERD, chronic back pain, depression and anxiety who presents from [facility] after a fall onto R side and was found to have slightly comminuted intertrochanteric fracture within the proximal right femur. POD #1 s/p R hip ORIF EBL 50ml pain/wound management per ortho pt remains on oxygen, will encourage staff to wean as able given underlying cognition unable to do incentive spirometry at this point PO intake has been poor today, will continue IVF, re assess in a.m. need to continue (2) Acute metabolic encephalopathy: Plan: Progressive decline over the past month with increased confusion and falls, has history of Parkinsons Notably worse confusion since Klonopin changed from PRN to scheduled BID 3 weeks ago, so possibly drug induced encephalopathy CT head without acute intracranial abnormality. Afebrile, no leukocytosis, UA unremarkable Consider MRI brain if no improvement Pt remains alert to self only today, avoid narcs as much as possible Hospital delirium likely playing a component in setting of anesthesia Klonopin initially help, but looks like resumed 11/2 like post op transfer will Place klonipin back on hold (3) Anemia: Plan: pre op, 12.6 post op 9.9 and 29.8 likely dilutional and acute blood loss with surgery repeat h/h in a.m. (4) Hypokalemia: Plan: Initial K 3.1. Replaced. follow BMP, resolved (5) HTN (hypertension): Plan: continue home lisinopril, 145/74 monitor (6) Parkinson disease: Plan: Continue cabidopa-levodopa, primidone (7) Diabetes mellitus, type II: Plan: A1c 5.7 in Sept Diet controlled BSG stable, d/c accuchecks (8) Anxiety and depression: Plan: Continue Lexapro, Holding Klonopin for now DVT Ppx: Lovenox starter per orthopedics Code status: DNR per previous admission, paperwork from [facility] PCP: Jewels Dispo: Admitted to med/surg friend Tory/SHABBIR can be reached at [phone] Patient seen in collaboration with Dr. Madrigal. Please see addendum. Admission and Anticipated Discharge Date Admission Date: August 20, 2021 Supervising Physician Co-Signing Physician Notes Pt was seen and examined. Agreed with Heather exam. assessment and plan. S/P day #1 R hip ORIF. No postop complication. Continue pain conttrol. Continue monitor CBC. Continue Pt/OT. Fall precaution. MD Rohan Subjective Patient was seen and examined in room 379-2. Follow-up right hip fracture status post surgical repair, POD #1. She is sitting up in bed with breakfast in front of her. She is more alert, but confused. ROS unreliable due to cognitive status. Review of Systems Review of Systems: Unobtainable due to cognitive status Physical Exam 2 Physical Exam: Gen: Elderly, F, WD/WN, NAD, Alert and oriented to self but confused HEENT: Normocephalic, atraumatic, conjunctivae moist, sclerae anicteric, mucous membranes dry. Resting lip tremor Lung: Clear to Auscultation bilaterally, no wheezes/rales/rhonchi Heart: Regular rate, regular rhythm, no murmurs, rubs, or gallops Abdomen: Soft, NT, ND +BS x 4 Extremities: No edema, right lower extremity dressing CDI, NVI distally Skin: Warm, no rash, negative turgor. : prado, yellow urine noted in cath Results & Data Results & Data ([facility]) Vital Signs (Past 12 Hours) Vital Signs Temp Pulse Resp BP BP Pulse Ox Pulse Ox 08/22/21 15:56 36.7 C 90 18 145/74 H 95 08/22/21 14:17 08/22/21 12:19 37.7 C H 99 H 18 105/76 93 08/22/21 07:53 37.1 C 93 H 18 179/79 H 94 08/22/21 04:53 93 08/22/21 04:42 36.9 C 89 16 133/67 95 Pulse Ox 08/22/21 15:56 08/22/21 14:17 90 08/22/21 12:19 08/22/21 07:53 08/22/21 04:53 08/22/21 04:42 Laboratory Results Short CBC 08/22/21 Range/Units 08:56 WBC 7.92 (4.8-10.8) K/uL Hgb 9.9 L (12.0-16.0) g/dL Hct 29.8 L (37-47) % Plt Count 141 (130-400) K/uL BMP 08/22/21 08:56 Sodium 143 Potassium 3.8 Chloride 112 H Carbon Dioxide 25 BUN 22 H Creatinine 0.62 Glucose 109 H Calcium 8.7 Diagnostic Findings Chest X-Ray 08/20/21 09:06 XR chest 1V portable HISTORY: 81 years-old Female Chest Pain acute atypical chest pain COMPARISON: Chest radiograph 08/31/2019 TECHNIQUE: Supine AP view of the chest FINDINGS: Cardiac mediastinal and hilar silhouettes are within normal limits. Calcified plaque of the thoracic aorta. No pneumothorax, pleural effusion, airspace consolidation or overt pulmonary edema. Mild right hemidiaphragmatic elevation. Degenerative changes of the shoulders and spine. IMPRESSION: No acute process. ACT 112: Negative or not required by law. The above report was generated using voice recognition software. It may contain grammatical, syntax or spelling errors. Electronically signed by: Benny New M.D. 08/20/2021 10:27 AM Hip/Pelvis X-Ray 08/20/21 09:07 XR hips GAUTAM 1v w pelvis CLINICAL HISTORY: Fall. Bilateral hip pain. COMPARISON STUDY: Pelvis 10/14/2018. FINDINGS: There is an angulated and slightly comminuted intertrochanteric fracture within the proximal right femur. No dislocation. The patient has pelvic bones and left hip are intact. Partially visualized lumbar spinal fusion hardware again noted. IMPRESSION: Slightly comminuted intertrochanteric fracture within the proximal right femur ACT 112: Negative or not required by law. Electronically signed by: Jacques Salas M.D. 08/20/2021 11:[address] 08/20/21 09:[address] DOSE: 1603.23 mGy.cm HISTORY: FALL TECHNIQUE: Multiaxial CT images of the head were performed without the use of intravenous contrast. Automated exposure control was utilized for this study. A dose lowering technique was utilized adhering to the principles of ALARA. Comparison: Head CT 08/31/2019. Findings: Motion artifact. The paranasal sinuses and mastoid air cells are clear. The calvarium and skull base are intact. There is no mass, hematoma, midline shift, acute infarct. White matter hypodensity is nonspecific but suggestive of microvascular ischemic change. The ventricles and sulci demonstrate mild age-related involutional changes. Impression: Motion artifact. No definite acute intracranial abnormality. ACT 112: Negative or not required by law. Electronically signed by: Jacques Salas M.D. 08/20/2021 10:02 AM Hip X-Ray 08/21/21 00:00 INTRAOPERATIVE RADIOGRAPHS CLINICAL HISTORY: Open reduction and internal fixation of the right femur. Fluoroscopy time: 273 seconds. FINDINGS: 7 spot fluoroscopic views of the right femur are correlated with radiographs dated 08/20/2021. Intertrochanteric and intramedullary nails have been placed transfixing an intertrochanteric/subtrochanteric fracture. Near- anatomic alignment has been restored. The orthopedic hardware appears intact. A single cortical lag screw transfixes the distal end of the intramedullary nail. IMPRESSION: Intraoperative images from open reduction and internal fixation of the right femur as above. Electronically signed by: Daniel Hale M.D. 08/21/2021 4:55 PM Medications Administered Current Inpatient Medications Acetaminophen (Acetaminophen 500 Mg Tab) 1,000 mg PO Q8H LINDSAY Stop: 09/19/21 21:29 Last Admin: 08/22/21 12:30 Dose: 1,000 mg Documented by: Aspirin (Aspirin 81 Mg Chew) 81 mg PO DAILY LINDSAY Stop: 09/20/21 08:59 Last Admin: 08/22/21 07:56 Dose: 81 mg Documented by: Bisacodyl (Bisacodyl 10 Mg Supp) 10 mg MA DAILY PRN PRN Reason: Constipation Stop: 09/19/21 14:00 Bisacodyl (Bisacodyl 10 Mg Supp) 10 mg MA DAILY PRN PRN Reason: Constipation Stop: 09/19/21 15:09 Carbidopa/Levodopa (Carbidopa/Levodopa 50/200mg Ext Rel Tab) 1 tab PO BID LINDSAY Stop: 09/19/21 14:19 Last Admin: 08/22/21 07:59 Dose: 1 tab Documented by: Clonazepam (Clonazepam 0.5 Mg Tab) 0.5 mg PO BID LINDSAY Stop: 09/19/21 15:14 Last Admin: 08/22/21 07:56 Dose: 0.5 mg Documented by: Cyanocobalamin (Cyanocobalamin 500 Mcg Tablet (Vitamin B-12)) 500 mcg PO DAILY LINDSAY Stop: 09/20/21 08:59 Last Admin: 08/22/21 07:57 Dose: 500 mcg Documented by: Dextrose (Dextrose 50% 50 Ml Syringe) 25 - 50 ml IV UD PRN; Protocol PRN Reason: Hypoglycemia Protocol Stop: 09/20/21 12:02 Docusate Sodium (Docusate Sodium 100 Mg Cap) 100 mg PO BID PRN PRN Reason: Constipation Stop: 09/19/21 14:00 Last Admin: 08/22/21 07:56 Dose: 100 mg Documented by: Enoxaparin Sodium (Enoxaparin Inj 40 Mg/0.4 Ml Syr) 40 mg SQ Q24H LINDSAY Stop: 09/21/21 07:59 Last Admin: 08/22/21 07:58 Dose: 40 mg Documented by: Ergocalciferol (Ergocalciferol 50,000 Units 1250 Mcg Cap) 50,000 units PO Fr@0900 LINDSAY Stop: 09/23/21 08:59 Escitalopram Oxalate (Escitalopram Oxalate 20 Mg Tab) 20 mg PO DAILY LINDSAY Stop: 09/19/21 15:29 Last Admin: 08/22/21 07:58 Dose: 20 mg Documented by: Folic Acid (Folic Acid 1 Mg Tab) 1 mg PO DAILY LINDSAY Stop: 09/20/21 08:59 Last Admin: 08/22/21 07:58 Dose: 1 mg Documented by: Glucagon (Glucagon For Inj 1 Mg Vial) 1 mg SQ UD PRN; Protocol PRN Reason: Hypoglycemia Protocol Stop: 09/20/21 12:02 Glucose (Glucose 10 Tabs/Tube) 4 - 8 tabs PO UD PRN; Protocol PRN Reason: Hypoglycemia Protocol Stop: 09/20/21 12:02 Glucose (Glucose 40% Gel 15 Gm Tube) 15 - 30 gm PO UD PRN; Protocol PRN Reason: Hypoglycemia Protocol Stop: 09/20/21 12:02 Hydralazine HCl (Hydralazine Hcl 20 Mg/Ml Vial) 5 mg IV Q6H PRN PRN Reason: hypertension Stop: 09/19/21 18:44 Sodium Chloride (Nss 1000ml) 1,000 mls @ 100 mls/hr IV .Q10H LINDSAY Stop: 09/20/21 17:54 Last Admin: 08/22/21 12:31 Dose: 100 mls/hr Documented by: Cefazolin Sodium (Ancef 2000mg) 2,000 mg in 15 mls @ 3.75 mls/min IV Q8H LINDSAY Stop: 08/22/21 19:59 Last Admin: 08/22/21 12:31 Dose: 3.75 mls/min Documented by: Ketorolac Tromethamine (Ketorolac Tromethamine 15 Mg/Ml Vial) 15 mg IV Q6H PRN PRN Reason: Pain Stop: 08/25/21 18:33 Last Admin: 08/22/21 07:54 Dose: 15 mg Documented by: Lisinopril (Lisinopril 10 Mg Tab) 10 mg PO DAILY LINDSAY Stop: 09/21/21 08:59 Last Admin: 08/22/21 07:57 Dose: 10 mg Documented by: Magnesium Hydroxide (Magnesium Hydroxide Susp 30 Ml Udc) 30 ml PO DAILY PRN PRN Reason: Constipation Stop: 09/19/21 14:00 Magnesium Hydroxide (Magnesium Hydroxide Susp 30 Ml Udc) 30 ml PO DAILY PRN PRN Reason: Constipation Stop: 09/19/21 15:09 Melatonin (Melatonin 3 Mg Tab) 3 mg PO HS LINDSAY Stop: 09/19/21 20:59 Last Admin: 08/21/21 00:17 Dose: 3 mg Documented by: Miscellaneous (Carbohydrates For Hypoglycemia ) 15 - 30 gm PO UD PRN PRN Reason: Hypoglycemia Protocol Stop: 09/20/21 12:02 Morphine Sulfate (Morphine Sulfate 2 Mg/Ml Carp) 2 mg IV Q4H PRN PRN Reason: Severe Pain Stop: 09/03/21 15:09 Last Admin: 08/21/21 23:33 Dose: 2 mg Documented by: Naloxone HCl (Naloxone Hcl 0.4 Mg/1 Ml Vial/Carp) 0.1 mg IV UD PRN PRN Reason: Opiate Overdose Stop: 09/19/21 15:09 Olanzapine (Olanzapine 10 Mg/2.1 Ml Sdv) 5 mg IM Q6H PRN PRN Reason: Agitation Stop: 09/19/21 15:09 Ondansetron HCl (Ondansetron Inj 2 Mg/Ml 2 Ml Vial) 4 mg IV Q6H PRN PRN Reason: Nausea And Vomiting Stop: 09/19/21 15:09 Pantoprazole Sodium (Pantoprazole 40 Mg Tab) 40 mg PO AMHS LINDSAY Stop: 09/19/21 20:59 Last Admin: 08/22/21 07:57 Dose: 40 mg Documented by: Primidone (Primidone 50 Mg Tab) 50 mg PO BID LINDSAY Stop: 09/19/21 15:29 Last Admin: 08/22/21 07:57 Dose: 50 mg Documented by: Senna/Docusate Sodium (Docusate Sodium/Senna 50/8.6mg Tab) 2 tab PO HS LINDSAY Stop: 09/19/21 20:59 Last Admin: 08/21/21 20:37 Dose: 2 tab Documented by:
[2021-08-22] MEDS: MELATONIN 3 MG TAB PO SCH (20:07)
[2021-08-22] MEDS: DOCUSATE SODIUM/SENNA 50/8.6MG TAB PO SCH (20:07)
[2021-08-23] MEDS: ACETAMINOPHEN 500 MG TAB PO SCH ×3 (05:35→21:02)
[2021-08-23 08:13] LABS: Hematocrit (blood only) 26.4 % (37-47); Hemoglobin 8.9 g/dL (12.0-16.0); Mean Corpuscular Hemoglobin 31.2 pg (25-34); Mean Corpuscular Hgb Conc 33.7 g/dL (32-36); Mean Corpuscular Volume 92.6 fL (80-100); Mean Platelet Volume 10.6 fL (7.4-10.4); Platelet Count 111 K/uL (130-400); RDW Standard Deviation 47.4 fL (36.4-46.3); Red Blood Count 2.85 M/uL (4.2-5.4); White Blood Count 5.33 K/uL (4.8-10.8)
[2021-08-23] MEDS: ASPIRIN 81 MG CHEW PO SCH (09:20)
[2021-08-23] MEDS: CYANOCOBALAMIN 500 MCG TABLET (VITAMIN B-12) PO SCH (09:20)
[2021-08-23] MEDS: PANTOprazole 40 MG TAB PO SCH ×2 (09:20→21:03)
[2021-08-23] MEDS: lisinopril 10 MG TAB PO SCH (09:20)
[2021-08-23] MEDS: PRIMIDONE 50 MG TAB PO SCH ×2 (09:20→21:03)
[2021-08-23] MEDS: ENOXAPARIN INJ 40 MG/0.4 ML SYR SQ SCH (09:20)
[2021-08-23] MEDS: ESCITALOPRAM OXALATE 20 MG TAB PO SCH (09:20)
[2021-08-23] MEDS: CARBIDOPA/LEVODOPA 50/200MG EXT REL TAB PO SCH ×2 (09:20→21:02)
[2021-08-23] MEDS: SODIUM CHLORIDE 0.9% 1000ML 1,000 ML IV SCH ×2 (09:22→18:02)
[2021-08-23 09:23] LABS: BUN Creatinine Ratio 38.2 (10-20); Calcium 8.5 mg/dl (8.5-10.1); Creatinine Clr Calc Pharmacy 99.9 ml/min; Est GFR (Non-African American) 94.1 ml/min; Potassium 3.5 mmol/L (3.5-5.1)
[2021-08-23] MEDS: FOLIC ACID 1 MG TAB PO SCH (10:19)
--- NOTE | 2021-08-23 12:13 | Hospitalist Progress Note ---
Date of Service August 23, 2021 Assessment & Plan (1) Intertrochanteric fracture of right femur: Plan: This is an 81yo F patient residing at [facility] with a PMH of DM II, Parkinson's disease, HTN, GERD, chronic back pain, depression and anxiety who presents from [facility] [place] after a fall onto R side and was found to have slightly comminuted intertrochanteric fracture within the proximal right femur. POD #2 s/p R hip ORIF EBL 50ml Pain/wound management per ortho Pt remains on oxygen, wean as able Given underlying cognition unable to do incentive spirometry at this point Continue IVF, pureed food with aspiration precautions PT/OT evaluated - recommend SNF (2) Acute metabolic encephalopathy: Plan: Progressive decline over the past month with increased confusion and falls, has history of Parkinsons Notably worse confusion since Klonopin changed from PRN to scheduled BID 3 weeks ago, so possibly drug induced encephalopathy CT head without acute intracranial abnormality. Afebrile, no leukocytosis, UA unremarkable Pt remains alert to self only today, avoid narcs as much as possible Hospital delirium likely playing a component in setting of anesthesia Klonopin initially held, but looks like resumed 08/21 like post op transfer Placed klonipin back on hold (3) Anemia: Plan: hgb 8.9, pre op, 12.6 likely dilutional and acute blood loss anemia with surgery repeat H/H in AM (4) Hypokalemia: Plan: Initial K 3.1. Replaced follow BMP, resolved (5) HTN (hypertension): Plan: continue home lisinopril, 145/74 monitor (6) Parkinson disease: Plan: Continue cabidopa-levodopa, primidone (7) Diabetes mellitus, type II: Plan: A1c 5.7 in Jun Diet controlled BSG stable, d/c accuchecks (8) Anxiety and depression: Plan: Continue Lexapro, Holding Klonopin for now DVT Ppx: Lovenox starter per orthopedics Code status: DNR per previous admission, paperwork from [facility] [place] PCP: Jewels Dispo: Admitted to med/surg Friend Tory/SHABBIR can be reached at [phone] Patient seen in collaboration with Dr. Madrigal. Please see addendum. Admission and Anticipated Discharge Date Admission Date: August 20, 2021 Supervising Physician Co-Signing Physician Notes Pt was seen and examined. Agreed with Ernestina Salcedo exam. assessment and plan. S/P day #2R hip ORIF. No postop complication. Continue pain control. Continue monitor CBC. Continue Pt/OT. Fall precaution. MD Rohan Subjective Patient was seen and examined in room 379-2. POD #2 s/p R hip fracture repair. Patient is alert and able to communicate more readily but still confused. Oriented to self only. Denies any pain. ROS unreliable due to cognitive status. Review of Systems Review of Systems: Unobtainable due to cognitive status Physical Exam Physical Exam: Gen: WD/WN, NAD, lying in bed, A&Ox1 HEENT: Normocephalic, atraumatic, conjunctivae moist, sclerae anicteric, mucous membranes moist Lung: Clear to Auscultation, no wheezes/rales/rhonchi Heart: Regular rate, regular rhythm, no murmurs, rubs, or gallops Abdomen: Soft, NT, ND +BS x 4 Extremities: R thigh surgical dressings c/d/i. Distal RLE NVI Skin: Warm, no rash Results & Data Results & Data ([facility]) Vital Signs (Past 12 Hours) Vital Signs Temp Pulse Resp BP Pulse Ox 08/23/21 08:00 36.7 C 89 18 155/79 H 94 08/23/21 06:00 37 C 77 16 131/72 96 08/23/21 02:13 36.4 C L 79 18 141/61 H 97 Laboratory Results Short CBC 08/23/21 Range/Units 08:00 WBC 5.33 (4.8-10.8) K/uL Hgb 8.9 L (12.0-16.0) g/dL Hct 26.4 L (37-47) % Plt Count 111 L (130-400) K/uL BMP 08/23/21 08:00 Sodium 143 Potassium 3.5 Chloride 113 H Carbon Dioxide 24 BUN 16 Creatinine 0.43 L Glucose 95 Calcium 8.5 Diagnostic Findings Chest X-Ray 08/20/21 09:06 XR chest 1V portable HISTORY: 81 years-old Female Chest Pain acute atypical chest pain COMPARISON: Chest radiograph 08/31/2019 TECHNIQUE: Supine AP view of the chest FINDINGS: Cardiac mediastinal and hilar silhouettes are within normal limits. Calcified plaque of the thoracic aorta. No pneumothorax, pleural effusion, airspace consolidation or overt pulmonary edema. Mild right hemidiaphragmatic elevation. Degenerative changes of the shoulders and spine. IMPRESSION: No acute process. ACT 112: Negative or not required by law. The above report was generated using voice recognition software. It may contain grammatical, syntax or spelling errors. Electronically signed by: Benny New M.D. 08/20/2021 10:27 AM Hip/Pelvis X-Ray 08/20/21 09:07 XR hips GAUTAM 1v w pelvis CLINICAL HISTORY: Fall. Bilateral hip pain. COMPARISON STUDY: Pelvis 10/14/2018. FINDINGS: There is an angulated and slightly comminuted intertrochanteric fracture within the proximal right femur. No dislocation. The patient has pelvic bones and left hip are intact. Partially visualized lumbar spinal fusion hardware again noted. IMPRESSION: Slightly comminuted intertrochanteric fracture within the proximal right femur ACT 112: Negative or not required by law. Electronically signed by: Jacques Salas M.D. 08/20/2021 11:[address] 08/20/21 09:[address] DOSE: 1603.23 mGy.cm HISTORY: FALL TECHNIQUE: Multiaxial CT images of the head were performed without the use of intravenous contrast. Automated exposure control was utilized for this study. A dose lowering technique was utilized adhering to the principles of ALARA. Comparison: Head CT 08/31/2019. Findings: Motion artifact. The paranasal sinuses and mastoid air cells are clear. The calvarium and skull base are intact. There is no mass, hematoma, midline shift, acute infarct. White matter hypodensity is nonspecific but suggestive of microvascular ischemic change. The ventricles and sulci demonstrate mild age-related involutional changes. Impression: Motion artifact. No definite acute intracranial abnormality. ACT 112: Negative or not required by law. Electronically signed by: Jacques Salas M.D. 08/20/2021 10:02 AM Hip X-Ray 08/21/21 00:00 INTRAOPERATIVE RADIOGRAPHS CLINICAL HISTORY: Open reduction and internal fixation of the right femur. Fluoroscopy time: 273 seconds. FINDINGS: 7 spot fluoroscopic views of the right femur are correlated with radiographs dated 08/20/2021. Intertrochanteric and intramedullary nails have been placed transfixing an intertrochanteric/subtrochanteric fracture. Near- anatomic alignment has been restored. The orthopedic hardware appears intact. A single cortical lag screw transfixes the distal end of the intramedullary nail. IMPRESSION: Intraoperative images from open reduction and internal fixation of the right femur as above. Electronically signed by: Daniel Hale M.D. 08/21/2021 4:55 PM
[2021-08-23] MEDS: hydrALAZINE HCL 20 MG/ML VIAL IV PRN ×2 (16:34→23:05)
--- NOTE | 2021-08-23 17:02 | Progress Notes ---
DATE OF SERVICE: 08/23/2021 She is resting comfortably in bed. She is awake, but she is not really oriented to what is going on. She thinks that she was in an accident and that other people were hurt. She is afebrile and her vital signs are stable. Her blood pressures are a little bit high recently. She still has a Villareal catheter in place and we will discuss with medicine whether we can get that re moved. Her urine output is 0.5 mL/kg per hour. White count 5, hemoglobin 9, hematocrit was 26, plat elets are 111, PRP is noted. Therapy report is reviewed. Her dressing is changed. Minimal drainage on the bandage, but nothing actively oozing. No fluctuance, but there is some bruising and slight s welling. Dressing changed. She is actually able to lift her leg and bend her knee about 45 degrees. She has intact ankle plantar flexion, dorsiflexion with normal strength, sensation, and a palpable pedal pulse. She is postop day 2 from her right hip troch nail. I recommend that she continue to do PT and OT. She is having limited progress at this point. She can weight bear as tolerated. I thin k that she is likely to need long-term care. I will continue to monitor while she is here in the [facility]. Continue Lovenox for DVT prophylaxis. Out of bed to chair. Job ID: [id number]
[2021-08-23] MEDS: MELATONIN 3 MG TAB PO SCH (21:03)
[2021-08-23] MEDS: DOCUSATE SODIUM/SENNA 50/8.6MG TAB PO SCH (21:04)
[2021-08-24] MEDS ORDERED: POTASSIUM CHLORIDE 40 MEQ in SODIUM CHLORIDE 0.45 % 1,000 ML IV ONE (01:00)
[2021-08-24] MEDS: ACETAMINOPHEN 500 MG TAB PO SCH ×3 (05:51→20:35)
[2021-08-24] MEDS: hydrALAZINE HCL 20 MG/ML VIAL IV PRN ×2 (06:43→20:11)
[2021-08-24 07:03] LABS: Appearance Urine Clear (Clear); Bacteria Urine Automated Negative (Negative); Bilirubin Urine Negative (Negative); Blood Urine Negative (Negative); Color Urine Yellow; Glucose Urine UA Negative (Negative); Ketones Urine 2+ (Negative); Leukocyte Esterase Urine 1+ (Negative); Nitrite Urine Negative (Negative); Protein Urine Negative (Negative); Specific Gravity Urine 1.009 (1.000-1.030); Urobilinogen Urine Negative (Negative); pH Urine 6.5 (4.5-7.5)
[2021-08-24] MEDS: lisinopril 10 MG TAB PO SCH (08:56)
[2021-08-24] MEDS: ESCITALOPRAM OXALATE 20 MG TAB PO SCH (08:57)
[2021-08-24] MEDS: ASPIRIN 81 MG CHEW PO SCH (08:57)
[2021-08-24] MEDS: CYANOCOBALAMIN 500 MCG TABLET (VITAMIN B-12) PO SCH (08:57)
[2021-08-24] MEDS: FOLIC ACID 1 MG TAB PO SCH (08:57)
[2021-08-24] MEDS: CARBIDOPA/LEVODOPA 50/200MG EXT REL TAB PO SCH ×2 (08:57→20:06)
[2021-08-24] MEDS: PRIMIDONE 50 MG TAB PO SCH ×2 (08:57→20:06)
[2021-08-24] MEDS: PANTOprazole 40 MG TAB PO SCH ×2 (08:58→20:06)
[2021-08-24] MEDS: ENOXAPARIN INJ 40 MG/0.4 ML SYR SQ SCH (08:58)
[2021-08-24] MEDS ORDERED: ERGOCALCIFEROL 50,000 UNITS 1250 MCG CAP PO SCH (09:00)
[2021-08-24 09:23] LABS: Creatinine Clr Calc Pharmacy 91.4 ml/min; Est GFR (African American) 105.9 ml/min; Est GFR (Non-African American) 91.3 ml/min
[2021-08-24] MEDS ORDERED: OLANZapine 10 MG/2.1 ML SDV IM STA (10:39)
[2021-08-24] MEDS: KETOROLAC TROMETHAMINE 15 MG/ML VIAL IV PRN (13:50)
--- NOTE | 2021-08-24 14:22 | Hospitalist Progress Note ---
Date of Service August 24, 2021 Assessment & Plan (1) Intertrochanteric fracture of right femur: Plan: This is an 81yo F patient residing at [facility] with a PMH of DM II, Parkinson's disease, HTN, GERD, chronic back pain, depression and anxiety who presents from [facility] [place] after a fall onto R side and was found to have slightly comminuted intertrochanteric fracture within the proximal right femur. POD #3 s/p R hip ORIF EBL 50ml Pain/wound management per ortho Pt remains on oxygen, wean as able Given underlying cognition unable to do incentive spirometry at this point Continue IVF, pureed food with aspiration precautions PT/OT evaluated - recommend SNF Referrals are in place to [facility] - awaiting placement (2) Acute metabolic encephalopathy: Plan: Progressive decline over the past month with increased confusion and falls, has history of Parkinsons Notably worse confusion since Klonopin changed from PRN to scheduled BID 3 weeks ago, so possibly drug induced encephalopathy CT head without acute intracranial abnormality. Afebrile, no leukocytosis, UA unremarkable Pt remains alert to self only today, even with minimal narcotics Hospital delirium, post-operative state likely playing a component in setting of anesthesia Klonipin is held, avoid narcotics as much as possible UA from 08/24/21 unremarkable One to one sitter as needed for intermittent agitation. Received 2.5mg IM Zyprexa this morning due to acute agitation - appears more comfortable, resting now (3) Anemia: Plan: Hgb 8.9, pre op, 12.6 likely dilutional and acute blood loss anemia with surgery repeat H/H in AM (4) Hypokalemia: Plan: Initial K 3.1. Replaced Follow BMP, resolved (5) HTN (hypertension): Plan: Continue home lisinopril, 145/74 Monitor (6) Parkinson disease: Plan: Continue cabidopa-levodopa, primidone (7) Diabetes mellitus, type II: Plan: A1c 5.7 in Jun Diet controlled BSG stable, d/c accuchecks (8) Anxiety and depression: Plan: Continue Lexapro, Holding Klonopin for now DVT Ppx: SQ Lovenox Code status: DNR per previous admission, paperwork from [facility] [place] PCP: Jewels Dispo: Admitted to med/surg Friend Tory/POA can be reached at [phone] Patient seen in collaboration with Dr. Madrigal. Please see addendum. Admission and Anticipated Discharge Date Admission Date: August 20, 2021 Supervising Physician Co-Signing Physician Notes Pt was seen and examined. Agreed with Ernestina Salcedo exam. assessment and plan. S/P day #3R hip ORIF. No postop complication. Continue pain control. Continue monitor CBC. Continue Pt/OT. Fall precaution. MD Rohan Subjective Patient was seen and examined in room 379-2. POD #3 s/p R hip fracture repair. Patient is delirious this morning. She is repeatedly trying to get out of bed does not remember having surgery. States she wants to "call the police" because we keep bothering her questions. Denies any pain. Is more alert and eating better per nursing but still does not know where she is. Remainder of ROS unreliable due to cognitive status. Review of Systems Review of Systems: Unobtainable due to cognitive status Physical Exam Physical Exam: Gen: WD/WN, NAD, lying in bed, A&Ox1, agitated HEENT: Normocephalic, atraumatic, conjunctivae moist, sclerae anicteric, mucous membranes moist Lung: Clear to Auscultation, no wheezes/rales/rhonchi Heart: Regular rate, regular rhythm, no murmurs, rubs, or gallops Abdomen: Soft, NT, ND +BS x 4 Extremities: R thigh surgical dressings c/d/i. Distal RLE NVI Skin: Warm, no rash Results & Data Results & Data ([facility]) Vital Signs (Past 12 Hours) Vital Signs Temp Pulse Resp BP BP Pulse Ox 08/24/21 08:17 36.2 C L 81 18 174/81 H 94 08/24/21 06:40 76 189/84 H 08/24/21 05:59 36.7 C 72 18 213/84 H 94 Laboratory Results BMP 08/24/21 08:20 Creatinine 0.47 L Urine 08/24/21 Range/Units 06:00 Urine Color Yellow Urine Appearance Clear (Clear) Urine pH 6.5 (4.5-7.5) Ur Specific [place] 1.009 (1.000-1.030) Urine Protein Negative (Negative) Urine Glucose (UA) Negative (Negative) Diagnostic Findings Chest X-Ray 08/20/21 09:06 XR chest 1V portable HISTORY: 81 years-old Female Chest Pain acute atypical chest pain COMPARISON: Chest radiograph 08/31/2019 TECHNIQUE: Supine AP view of the chest FINDINGS: Cardiac mediastinal and hilar silhouettes are within normal limits. Calcified plaque of the thoracic aorta. No pneumothorax, pleural effusion, airspace consolidation or overt pulmonary edema. Mild right hemidiaphragmatic elevation. Degenerative changes of the shoulders and spine. IMPRESSION: No acute process. ACT 112: Negative or not required by law. The above report was generated using voice recognition software. It may contain grammatical, syntax or spelling errors. Electronically signed by: Benny New M.D. 08/20/2021 10:27 AM Hip/Pelvis X-Ray 08/20/21 09:07 XR hips GAUTAM 1v w pelvis CLINICAL HISTORY: Fall. Bilateral hip pain. COMPARISON STUDY: Pelvis 10/14/2018. FINDINGS: There is an angulated and slightly comminuted intertrochanteric fracture within the proximal right femur. No dislocation. The patient has pelvic bones and left hip are intact. Partially visualized lumbar spinal fusion hardware again noted. IMPRESSION: Slightly comminuted intertrochanteric fracture within the proximal right femur ACT 112: Negative or not required by law. Electronically signed by: Jacques Salas M.D. 08/20/2021 11:[address] 08/20/21 09:[address] DOSE: 1603.23 mGy.cm HISTORY: FALL TECHNIQUE: Multiaxial CT images of the head were performed without the use of intravenous contrast. Automated exposure control was utilized for this study. A dose lowering technique was utilized adhering to the principles of ALARA. Comparison: Head CT 08/31/2019. Findings: Motion artifact. The paranasal sinuses and mastoid air cells are clear. The calvarium and skull base are intact. There is no mass, hematoma, midline shift, acute infarct. White matter hypodensity is nonspecific but suggestive of microvascular ischemic change. The ventricles and sulci demonstrate mild age-related involutional changes. Impression: Motion artifact. No definite acute intracranial abnormality. ACT 112: Negative or not required by law. Electronically signed by: Jacques Salas M.D. 08/20/2021 10:02 AM Hip X-Ray 08/21/21 00:00 INTRAOPERATIVE RADIOGRAPHS CLINICAL HISTORY: Open reduction and internal fixation of the right femur. Fluoroscopy time: 273 seconds. FINDINGS: 7 spot fluoroscopic views of the right femur are correlated with radiographs dated 08/20/2021. Intertrochanteric and intramedullary nails have been placed transfixing an intertrochanteric/subtrochanteric fracture. Near- anatomic alignment has been restored. The orthopedic hardware appears intact. A single cortical lag screw transfixes the distal end of the intramedullary nail. IMPRESSION: Intraoperative images from open reduction and internal fixation of the right femur as above. Electronically signed by: Daniel Hale M.D. 08/21/2021 4:55 PM
[2021-08-24] MEDS: MELATONIN 3 MG TAB PO SCH (20:06)
[2021-08-24] MEDS: DOCUSATE SODIUM/SENNA 50/8.6MG TAB PO SCH (20:06)
[2021-08-25] MEDS: hydrALAZINE HCL 20 MG/ML VIAL IV PRN ×3 (02:27→22:11)
[2021-08-25] MEDS ORDERED: lisinopril 20 MG TAB PO SCH (04:30)
[2021-08-25] MEDS ORDERED: lisinopril 10 MG TAB PO STA (05:22)
[2021-08-25] MEDS: ACETAMINOPHEN 500 MG TAB PO SCH ×3 (06:10→19:52)
[2021-08-25] MEDS: ESCITALOPRAM OXALATE 20 MG TAB PO SCH (08:44)
[2021-08-25] MEDS: CARBIDOPA/LEVODOPA 50/200MG EXT REL TAB PO SCH ×2 (08:44→19:52)
[2021-08-25] MEDS: FOLIC ACID 1 MG TAB PO SCH (08:44)
[2021-08-25] MEDS: ASPIRIN 81 MG CHEW PO SCH (08:44)
[2021-08-25] MEDS: PRIMIDONE 50 MG TAB PO SCH ×2 (08:45→19:52)
[2021-08-25] MEDS: CYANOCOBALAMIN 500 MCG TABLET (VITAMIN B-12) PO SCH (08:45)
[2021-08-25] MEDS: ENOXAPARIN INJ 40 MG/0.4 ML SYR SQ SCH (08:45)
[2021-08-25] MEDS: PANTOprazole 40 MG TAB PO SCH ×2 (08:45→19:52)
[2021-08-25] MEDS: OLANZapine 10 MG/2.1 ML SDV IM PRN ×2 (10:57→19:48)
[2021-08-25] MEDS: MELATONIN 3 MG TAB PO SCH (19:53)
[2021-08-25] MEDS: DOCUSATE SODIUM/SENNA 50/8.6MG TAB PO SCH (19:53)
--- NOTE | 2021-08-25 23:30 | Hospitalist Progress Note ---
Date of Service August 25, 2021 Assessment & Plan (1) Intertrochanteric fracture of right femur: Plan: This is an 81yo F patient residing at [facility] with a PMH of DM II, Parkinson's disease, HTN, GERD, chronic back pain, depression and anxiety who presents from [facility] [place] after a fall onto R side and was found to have slightly comminuted intertrochanteric fracture within the proximal right femur. POD #4 s/p R hip ORIF Postop complication Continue pain control Continue incentive spirometry PT/OT evaluated - Recommended he SNF Referrals are in place to [facility] - awaiting placement (2) Acute metabolic encephalopathy: Plan: Progressive decline over the past month with increased confusion and falls, has history of Parkinsons Notably worse confusion since Klonopin changed from PRN to scheduled BID 3 weeks ago, so possibly drug induced encephalopathy CT head without acute intracranial abnormality. Afebrile, no leukocytosis, UA unremarkable Pt remains alert to self only today, even with minimal narcotics Hospital delirium, post-operative state likely playing a component in setting of anesthesia Klonipin is held, avoid narcotics as much as possible UA from 08/24/21 unremarkable Has been off one-to-one observation Continue monitor closely (3) Anemia: Plan: Hgb 8.9, pre op, 12.6 likely dilutional and acute blood loss anemia with surgery repeat H/H in AM (4) Hypokalemia: Plan: Initial K 3.1. Replaced Follow BMP, resolved (5) HTN (hypertension): Plan: Continue home lisinopril, 145/74 Monitor (6) Parkinson disease: Plan: Continue cabidopa-levodopa, primidone (7) Diabetes mellitus, type II: Plan: A1c 5.7 in Sept Diet controlled BSG stable, d/c accuchecks (8) Anxiety and depression: Plan: Continue Lexapro, Holding Klonopin for now DVT Ppx: SQ Lovenox Code status: DNR per previous admission, paperwork from [facility] [place] PCP: Jewels Friend Tory/SHABBIR can be reached at [phone] Admission and Anticipated Discharge Date Admission Date: August 20, 2021 Subjective Patient was seen and examined for postop follow-up Lying in bed in no acute distress Patient said pain is controlled denies any chest pain, palpitation, dizziness, shortness of breath Review of Systems Review of Systems: All systems reviewed & are unremarkable except as noted in Subjective Physical Exam Physical Exam: Gen: WD/WN, NAD, l arturo in bed, A&Ox1 HEENT: Normocepha lic, atraumatic, c onjunctivae moist, sclerae anicteric , mucous membranes moist Lung: Clear to Auscultation, no wheezes/rales/r honchi Heart: Regu lar rate, regular rhythm, no murmurs , rubs, or gallops Abdomen: Soft, NT , ND +BS x 4 Extre mities: R thigh britton rgical dressings c /d/i. Distal RLE N Skin: Warm, no rash Results & Data Results & Data ([facility]) Vital Signs (Past 12 Hours) Vital Signs Temp Pulse Pulse Resp BP BP Pulse Ox 08/25/21 22:01 91 H 206/77 H 08/25/21 21:57 37 C 88 16 204/85 H 94 08/25/21 15:41 36.8 C 112 H 18 138/67 91
[2021-08-26] MEDS: ACETAMINOPHEN 500 MG TAB PO SCH ×3 (05:00→19:40)
[2021-08-26] MEDS: hydrALAZINE HCL 20 MG/ML VIAL IV PRN ×2 (05:17→22:38)
[2021-08-26] MEDS: FOLIC ACID 1 MG TAB PO SCH (08:20)
[2021-08-26] MEDS: ASPIRIN 81 MG CHEW PO SCH (08:20)
[2021-08-26] MEDS: PRIMIDONE 50 MG TAB PO SCH ×2 (08:21→19:40)
[2021-08-26] MEDS: PANTOprazole 40 MG TAB PO SCH ×2 (08:21→19:40)
[2021-08-26] MEDS: lisinopril 10 MG TAB PO SCH (08:21)
[2021-08-26] MEDS: CARBIDOPA/LEVODOPA 50/200MG EXT REL TAB PO SCH ×2 (08:21→19:41)
[2021-08-26] MEDS: ENOXAPARIN INJ 40 MG/0.4 ML SYR SQ SCH (08:22)
[2021-08-26] MEDS: ESCITALOPRAM OXALATE 20 MG TAB PO SCH (08:22)
[2021-08-26] MEDS: CYANOCOBALAMIN 500 MCG TABLET (VITAMIN B-12) PO SCH (08:22)
[2021-08-26 09:42] LABS: Hematocrit (blood only) 30.6 % (37-47); Hemoglobin 10.1 g/dL (12.0-16.0); Mean Corpuscular Hemoglobin 30.7 pg (25-34); Mean Platelet Volume 10.8 fL (7.4-10.4); Platelet Count 210 K/uL (130-400); RDW Coefficient of Variation 15.1 % (11.5-14.5); RDW Standard Deviation 49.7 fL (36.4-46.3); Red Blood Count 3.29 M/uL (4.2-5.4); White Blood Count 7.57 K/uL (4.8-10.8)
[2021-08-26 10:15] LABS: BUN Creatinine Ratio 28.5 (10-20); Calcium 8.6 mg/dl (8.5-10.1); Creatinine Clr Calc Pharmacy 89.5 ml/min; Est GFR (African American) 105.1 ml/min; Est GFR (Non-African American) 90.7 ml/min; Potassium 2.7 mmol/L (3.5-5.1)
[2021-08-26] MEDS: MoRPHine SULFATE 2 MG/ML CARP IV PRN (10:19)
[2021-08-26] MEDS ORDERED: oxyCODONE HCL IR 5 MG TAB (IMMEDIATE RELEASE) PO PRN (12:17)
[2021-08-26] MEDS: OLANZapine 10 MG/2.1 ML SDV IM PRN (17:19)
[2021-08-26] MEDS: MELATONIN 3 MG TAB PO SCH (19:41)
[2021-08-26] MEDS: DOCUSATE SODIUM/SENNA 50/8.6MG TAB PO SCH (19:44)
--- NOTE | 2021-08-26 20:35 | Hospitalist Progress Note ---
Date of Service August 26, 2021 Assessment & Plan (1) Intertrochanteric fracture of right femur: Plan: This is an 81yo F patient residing at [facility] with a PMH of DM II, Parkinson's disease, HTN, GERD, chronic back pain, depression and anxiety who presents from [facility] [place] after a fall onto R side and was found to have slightly comminuted intertrochanteric fracture within the proximal right femur. POD #5 s/p R hip ORIF Postop complication Continue pain control Continue incentive spirometry PT/OT evaluated - Recommended he SNF Referrals are in place to [facility] - awaiting placement (2) Acute metabolic encephalopathy: Plan: Progressive decline over the past month with increased confusion and falls, has history of Parkinsons Notably worse confusion since Klonopin changed from PRN to scheduled BID 3 weeks ago, so possibly drug induced encephalopathy CT head without acute intracranial abnormality. Afebrile, no leukocytosis, UA unremarkable Pt remains alert to self only today, even with minimal narcotics Hospital delirium, post-operative state likely playing a component in setting of anesthesia Klonipin is held, avoid narcotics as much as possible UA from 08/24/21 unremarkable Has been off one-to-one observation Continue monitor closely (3) Anemia: Plan: Acute blood loss anemia likely dilutional and recent surgical procedure Hemoglobin 10.1 today Stable (4) Hypokalemia: Plan: Potassium dropped to 2.7 Potassium replaced Continue monitor BMP (5) HTN (hypertension): Plan: BP has been fluctuated Continue lisinopril (6) Parkinson disease: Plan: Continue cabidopa-levodopa, primidone (7) Diabetes mellitus, type II: Plan: Most recent A1c 5.7 in Jun Diet controlled BSG stable, d/c accuchecks (8) Anxiety and depression: Plan: Continue Lexapro, Continue to hold Klonopin for now DVT Ppx: SQ Lovenox Code status: DNR per previous admission, paperwork from [facility] [place] PCP: Jewels Friend Tory/SHABBIR can be reached at [phone] Admission and Anticipated Discharge Date Admission Date: August 20, 2021 Subjective Patient was seen and examined for postop follow-up Lying in bed in no acute distress denies any chest pain, palpitation, dizziness, shortness of breath Review of Systems Review of Systems: All systems reviewed & are unremarkable except as noted in Subjective Physical Exam Physical Exam: Gen: WD/WN, NAD, l arturo in bed, A&Ox1 HEENT: Normocepha lic, atraumatic, c onjunctivae moist, sclerae anicteric , mucous membranes moist Lung: Clear to Auscultation, no wheezes/rales/r honchi Heart: Regu lar rate, regular rhythm, no murmurs , rubs, or gallops Abdomen: Soft, NT , ND +BS x 4 Extre mities: R thigh britton rgical dressings c /d/i. Distal RLE N Skin: Warm, no rash Results & Data Results & Data ([facility]) Vital Signs (Past 12 Hours) Vital Signs Temp Pulse Resp BP BP Pulse Ox 08/26/21 20:02 172/74 H 91 08/26/21 16:00 36.6 C 95 H 18 169/71 H 92
[2021-08-26] MEDS ORDERED: POTASSIUM CHLORIDE CRTAB 20 MEQ TABCR PO STA (20:39)
[2021-08-26] MEDS: POTASSIUM CHLORIDE / WTR 10 MEQ/100 ML PLCT IV SCH ×2 (21:39→22:40)
[2021-08-27] MEDS: ACETAMINOPHEN 500 MG TAB PO SCH ×3 (06:26→20:19)
[2021-08-27 07:36] LABS: Creatinine Clr Calc Pharmacy 76.7 ml/min; Est GFR (African American) 99.9 ml/min; Est GFR (Non-African American) 86.2 ml/min
[2021-08-27 08:23] LABS: BUN Creatinine Ratio 34.7 (10-20); Calcium 7.7 mg/dl (8.5-10.1); Creatinine Clr Calc Pharmacy 81.1 ml/min; Est GFR (African American) 101.8 ml/min; Est GFR (Non-African American) 87.8 ml/min; Magnesium 1.4 mg/dl (1.8-2.4); Potassium 3.2 mmol/L (3.5-5.1)
[2021-08-27] MEDS: PANTOprazole 40 MG TAB PO SCH ×2 (10:13→20:19)
[2021-08-27] MEDS: POTASSIUM CHLORIDE CRTAB 20 MEQ TABCR PO SCH ×2 (10:13→12:44)
[2021-08-27] MEDS: PRIMIDONE 50 MG TAB PO SCH ×2 (10:13→20:19)
[2021-08-27] MEDS: ESCITALOPRAM OXALATE 20 MG TAB PO SCH (10:13)
[2021-08-27] MEDS: FOLIC ACID 1 MG TAB PO SCH (10:13)
[2021-08-27] MEDS: lisinopril 10 MG TAB PO SCH (10:13)
[2021-08-27] MEDS: CYANOCOBALAMIN 500 MCG TABLET (VITAMIN B-12) PO SCH (10:14)
[2021-08-27] MEDS: ASPIRIN 81 MG CHEW PO SCH (10:14)
[2021-08-27] MEDS: CARBIDOPA/LEVODOPA 50/200MG EXT REL TAB PO SCH ×2 (10:14→20:19)
[2021-08-27] MEDS: ENOXAPARIN INJ 40 MG/0.4 ML SYR SQ SCH (10:14)
[2021-08-27] MEDS: MAGNESIUM SULFATE / D5W 1 GM/100 ML BAG IV SCH ×2 (10:14→11:59)
[2021-08-27] MEDS: hydrALAZINE HCL 20 MG/ML VIAL IV PRN (11:09)
--- NOTE | 2021-08-27 15:12 | Hospitalist Progress Note ---
Date of Service August 27, 2021 Assessment & Plan (1) Intertrochanteric fracture of right femur: Plan: This is an 81yo F patient residing at [facility] with a PMH of DM II, Parkinson's disease, HTN, GERD, chronic back pain, depression and anxiety who presents from [facility] [place] after a fall onto R side and was found to have slightly comminuted intertrochanteric fracture within the proximal right femur. POD #6 s/p R hip ORIF Continue pain control Continue incentive spirometry PT/OT evaluated - Recommended SNF Patient accepted to [facility] and bed ready however given lethargy and electrolyte abnormalities, will hold on discharge for today (2) Acute metabolic encephalopathy: Plan: Progressive decline over the past month with increased confusion and falls, has history of Parkinsons Notably worse confusion since Klonopin changed from PRN to scheduled BID 3 weeks ago, so possibly drug induced encephalopathy CT head without acute intracranial abnormality. Afebrile, no leukocytosis, UA unremarkable Today, lethargic however arouses easily to verbal stimuli, remains alert to self only Hospital delirium, anesthesia, post-operative state, medications likely components Klonopin has been held, patient receiving as needed olanzapine, last dose on 08/26 - due to lethargy, will discontinue olanzapine (3) Anemia: Plan: Acute blood loss anemia Hgb 8.9 on 08/23, improved to 10.1 on 08/26 (4) Hypomagnesemia: (5) Hypokalemia: Plan: K+ 2.7 08/26 -> 3.2 today -will provide additional replacement MG +1.4, replace Mild hypernatremia noted, Na+ 147 Electrolyte abnormalities likely due to decreased p.o. intake in the setting of lethargy. Hold sedating medications, encourage p.o. intake. Follow electrolytes in the morning. (6) HTN (hypertension): Plan: BP has been fluctuating, continue lisinopril (7) Parkinson disease: Plan: Continue cabidopa-levodopa, primidone (8) Diabetes mellitus, type II: Plan: Most recent A1c 5.7 in Jun Diet controlled BSG stable, d/c accuchecks (9) Anxiety and depression: Plan: Continue Lexapro Continue to hold Klonopin for now DVT Ppx: SQ Lovenox 40 mg daily x 4 weeks per orthopedics Code status: DNR per previous admission, paperwork from [facility] [place] PCP: Jewels Friend [place] can be reached at [phone] Admission and Anticipated Discharge Date Admission Date: August 20, 2021 Supervising Physician Co-Signing Physician Notes Pt was seen and examined. Agreed with Ccoo ELLIS exam. assessment and plan. S/P day #6R hip ORIF. No postop complication. Continue pain control. Continue monitor CBC. Continue Pt/OT. Fall precaution. MD Rohan Subjective Patient seen and examined. Follow-up for intertrochanteric right femur fracture, acute metabolic encephalopathy. Patient resting in bed, somewhat lethargic. Offers no complaints. Physical Exam Constitutional: WD/WN, vitals as above Respiratory: normal respiratory effort, lungs clear to auscultation Cardiovascular: Rate/Rhythm: regular rate and regular rhythm Vessels: normal peripheral pulses Extremities: no edema Gastrointestinal (Abdomen): Percussion/Palpation: abdomen soft; abdomen nontender Musculoskeletal: S/p right hip surgery, dressing CDI Skin: no rashes, warm and dry Neurologic: no focal motor deficits Psychiatric: Orientation: oriented to person; + not alert (Somewhat lethargic however arouses easily to verbal stimuli), + not oriented to place and + not oriented to time Results & Data Results & Data ([facility]) Vital Signs (Past 12 Hours) Vital Signs Temp Pulse Resp BP BP Pulse Ox 08/27/21 11:59 163/78 H 08/27/21 11:01 175/83 H 08/27/21 10:28 37.1 C 98 H 16 180/80 H 90 Laboratory Results [facility] 08/27/21 08/27/21 06:06 06:06 Sodium 147 H Potassium 3.2 L D Chloride 113 H Carbon Dioxide 25 BUN 18 Creatinine 0.56 L 0.53 L Glucose 102 H Calcium 7.7 L
[2021-08-27] MEDS: MELATONIN 3 MG TAB PO SCH (20:19)
[2021-08-27] MEDS: DOCUSATE SODIUM/SENNA 50/8.6MG TAB PO SCH (20:19)
[2021-08-28] MEDS: ACETAMINOPHEN 500 MG TAB PO SCH ×2 (05:46→12:38)
[2021-08-28 07:05] LABS: BUN Creatinine Ratio 38.2 (10-20); Calcium 8.5 mg/dl (8.5-10.1); Creatinine Clr Calc Pharmacy 82.6 ml/min; Est GFR (African American) 102.4 ml/min; Est GFR (Non-African American) 88.4 ml/min; Magnesium 1.7 mg/dl (1.8-2.4); Potassium 3.7 mmol/L (3.5-5.1)
[2021-08-28] MEDS ORDERED: MAGNESIUM SULFATE / D5W 1 GM/100 ML BAG IV ONE (07:21)
[2021-08-28] MEDS: hydrALAZINE HCL 20 MG/ML VIAL IV PRN (08:03)
--- NOTE | 2021-08-28 08:19 | Orthopedic Progress Note ---
Date of Service August 28, 2021 Assessment & Plan (1) Hip fracture, right: Plan: POD 7 - s/p ORIF right hip continue PT/OT She may be out of bed to chair as tolerated, may do full ROM of all lower extremity joints. Weight bear as tolerated right lower extremity Use walker for assistance Ice to right hip as needed for pain/swelling Encourage and allow full range of motion right lower extremity joints. Dressings to right hip as needed. Follow up with orthopedics as an outpatient as scheduled next week. Plan for discharge to [facility] today or when medically stable. Admission and Anticipated Discharge Date Admission Date: August 20, 2021 Subjective Patient resting in bed, mildly confused, but pleasant. Denies pain in right hip with rest. Physical Exam Musculoskeletal: Dr. Cruz present for today's visit: dressings removed right hip, incisions, clean, dry and intact. [place] retained. No active drainage from incisions. Right thigh ecchymosis present. No distal edema, able to independently SLR right lower extremity. Able to actively flex right hip and right knee. Distal sensation intact. Distal pulses 1 + Results & Data ([facility]) Vital Signs (Past 12 Hours) Vital Signs Temp Pulse Resp BP BP Pulse Ox 08/28/21 07:57 208/82 H 08/28/21 07:55 202/75 H 08/28/21 07:42 36.8 C 101 H 18 203/84 H 91 08/27/21 23:13 37.1 C 98 H 18 157/71 H 90 Laboratory Results 08/28/21 08/27/21 Range/Units 06:08 06:06 Sodium 143 147 H (136-145) mmol/L Potassium 3.7 D 3.2 L D (3.5-5.1) mmol/L Chloride 112 H 113 H (98-107) mmol/L Carbon Dioxide 25 25 (21-32) mmol/L Anion Gap 6.0 9.0 (3-11) BUN 20 H 18 (7-18) mg/dl Creatinine 0.52 L 0.53 L (0.6-1.2) mg/dl Est Cr Clr Drug Dosing 82.6 81.1 ml/min Est GFR ( Amer) 102.4 101.8 ml/min Est GFR (Non-Af Amer) 88.4 87.8 ml/min BUN/Creatinine Ratio 38.2 H 34.7 H (10-20) Glucose 101 H 102 H (70-99) mg/dl Calcium 8.5 7.7 L (8.5-10.1) mg/dl Magnesium 1.7 L 1.4 L (1.8-2.4) mg/dl (1) Hip fracture, right Encounter type: initial encounter Fracture type: closed Qualified Code(s): S72.001A - Fracture of unspecified part of neck of right femur, initial encounter for closed fracture
[2021-08-28] MEDS ORDERED: amLODIPine BESYLATE 5 MG TAB PO ONE (08:34)
[2021-08-28] MEDS ORDERED: clonazePAM 0.25 MG TAB PO ONE (08:45)
[2021-08-28] MEDS ORDERED: amLODIPine BESYLATE 5 MG TAB PO SCH (09:00)
[2021-08-28] MEDS: ENOXAPARIN INJ 40 MG/0.4 ML SYR SQ SCH (09:40)
[2021-08-28] MEDS: FOLIC ACID 1 MG TAB PO SCH (09:41)
[2021-08-28] MEDS: ESCITALOPRAM OXALATE 20 MG TAB PO SCH (09:41)
[2021-08-28] MEDS: CARBIDOPA/LEVODOPA 50/200MG EXT REL TAB PO SCH (09:41)
[2021-08-28] MEDS: ASPIRIN 81 MG CHEW PO SCH (09:41)
[2021-08-28] MEDS: CYANOCOBALAMIN 500 MCG TABLET (VITAMIN B-12) PO SCH (09:41)
[2021-08-28] MEDS: PANTOprazole 40 MG TAB PO SCH (09:42)
[2021-08-28] MEDS: PRIMIDONE 50 MG TAB PO SCH (09:42)
[2021-08-28] MEDS: lisinopril 10 MG TAB PO SCH (09:42)
--- NOTE | 2021-08-28 12:25 | Discharge Summary ---
Date of Service August 28, 2021 Admission HPI Per Admitting Provider This is an 81yo F with a PMH of DM II, Parkinson's disease, HTN, GERD, chronic back pain, depression and anxiety who presents from [facility] after a fall onto R side. Patient unable to provide reliable history. Per discussion with staff, patient has declined over the past month. Previously ANO x3 and able to ambulate independently. Over the past 3 weeks, patient more intermittently confused. Nursing correlates this to when Klonopin twice daily became scheduled rather than as needed. Had a fall last week where she slid to the ground. No head trauma. Last evening when nurses were passing medications, patient was found disoriented and with disheveled clothing which is unusual for her. This morning, nursing heard patient yelling for help and found her on the ground without clothing on. Was found on her right side complaining of pain and was sent into ED for further evaluation. Did not receive medications prior to being sent in for evaluation. Per facility paperwork, patient is a DNR/DNI. Limited f amily support but POA is friend, Tory. Remote history of PE over 30 years ago. ROS unobtainable due to cognitive state. Principal Diagnosis General Appearance: WD/WN, vitals as above, NAD, lying in bed, in pain, BUE tremors, A&O to person only Head: normocephalic, atraumatic Eyes: normal inspection, PERRL, conjunctivae normal, anicteric sclerae ENT: external ear and nose normal, oropharynx normal Neck: normal visual inspection, trachea midline, no thyromegaly Respiratory: normal respiratory effort, lungs clear to auscultation, no wheeze, rales, rhonchi. No accessory muscle use Cardiovascular: regular rate, rhythm, no murmur, normal peripheral pulses, no BLE edema. Vessels: no JVD Chest: normal inspection of chest Abdomen/GI: normal bowel sounds, soft, nontender, no hepatosplenomegaly Extremities/Musculoskeletal: R leg no cyanosis or clubbing, extremities motor strength 5/5 Neurologic: PERRL, EOMI, accommodation nl, no face palsy, no dysarthria, CN's II-XI intact bilaterally and moves all extremities Psychiatric: A+Ox3, euthymic affect Skin: no rashes, normal color, warm/dry Discharge Exam Constitutional well developed; no acute distress Resting in bed Respiratory normal respiratory effort, lungs clear to auscultation Cardiovascular Rate/Rhythm: regular rate and regular rhythm Vessels: normal peripheral pulses Extremities: no edema Gastrointestinal (Abdomen) Percussion/Palpation: abdomen soft; abdomen nontender Musculoskeletal no cyanosis or clubbing, extremities motor strength 5/5 S/p right hip surgery, dressing CDI, extensive surrounding ecchymosis noted Skin no rashes, warm and dry Neurologic moves all extremities; no focal motor deficits Psychiatric Orientation: alert, oriented to person and cooperative; + not oriented to place and + not oriented to time Discharge Data Allergies Allergy/AdvReac Type Severity Reaction Status Date / Time codeine Allergy Severe SEVERE Verified 08/30/21 16:58 HEADACHE, NAUSEA & VOMITING morphine Allergy Severe SEVERE Verified 08/30/21 16:58 HEADACHE, NAUSEA, & VOMIT[facility] Allergy Severe DECREASED Verified 08/30/21 16:58 MOTOR SKILL, SOB. lactose Allergy Unknown ON MED Verified 08/30/21 16:58 LIST FROM [facility] Consultations Dr. Cruz, orthopedics Procedures Performed Operation Date: 08/21/21 09:25 Actual Procedures p Internal Fixation with Trochanteric Nailing(Right) - Vaughn Cruz MD s Right Hip Closed Reduction,(Right) - Vaughn Cruz MD Ordered Studies 08/20/2021 hip and pelvis XR IMPRESSION: Slightly comminuted intertrochanteric fracture within the proximal right femur. 08/20/[address] impression: Motion artifact. No definite acute intracranial abnormality. Hospital Course (1) Intertrochanteric fracture of right femur: This is an 81yo F patient residing at [facility] with a PMH of DM II, Parkinson's disease, HTN, GERD, chronic back pain, depression and anxiety who presents from [facility] after a fall onto R side and was found to have slightly comminuted intertrochanteric fracture within the proximal right femur. s/p R hip ORIF on 08/[address] Cruz Pain controlled with scheduled Tylenol Postop discharge instructions as per orthopedics Lovenox 40 mg SQ x 6 weeks for DVT prophylaxis per Ortho (2) Acute metabolic encephalopathy: Progressive decline over the past month with increased confusion and falls, has history of Parkinsons Notably worse confusion since Klonopin changed from PRN to scheduled BID 3 weeks ago, so possibly drug induced encephalopathy CT head without acute intracranial abnormality. Afebrile, no leukocytosis, UA unremarkable Hospital delirium, anesthesia, post-operative state, medications likely components. Required a few doses of as needed olanzapine 2.5 mg IM, last dose on 08/26 Mental status improved by the day of discharge. Recommend resuming Klonopin 0.25 mg twice daily on an as-needed basis (3) HTN (hypertension): Had elevated BP during admission, home dose lisinopril 10 mg daily increased to 30 mg daily and amlodipine 5 mg daily added on 08/28 (4) Anemia: Acute blood loss anemia Hgb 8.9 on 08/23, improved to 10.1 on 08/26 (5) Hypomagnesemia: (6) Hypokalemia: Replaced, resolved (7) Parkinson disease: Continue cabidopa-levodopa, primidone (8) Diabetes mellitus, type II: Most recent A1c 5.7 in Sept Diet controlled (9) Anxiety and depression: Continue Lexapro Klonopin resumed on as-needed basis Total Time Total Time Spent Total Time Spent (In Minutes): 40 Discharge Plan Discharge Items Patient Disposition: Transfer [facility] Fac Reason For Visit: HIP FRACTURE Discharge Diagnosis: Right hip fracture Condition on Discharge: Good Activity: Per Instructions section Weightbearing: Right weightbearing Weightbearing Comment: with assistance of a walker Non-emergency contact: Surgeon Call non-emergency contact if: you have any medication questions, your pain is worsening, your temperature is above 101, your wound has increased redness and your wound has increased drainage Follow-up/Referrals: Mimi Cline PA-C [Physician Nurse Advocate] - 09/04/21 2:30 pm Diet: Heart Healthy Charles Attending Provider Instructions: Patient admitted on 08/20 after a fall. Found to have right hip fracture. S/p ORIF right hip on 08/21. Postop instructions as per orthopedics. Scheduled clonidine changed to as needed due to altered mental status. Lisinopril increased to 30 mg daily and started on amlodipine 5 mg daily for increased blood pressure. Patient to follow-up with provider at [facility]. [employer]tl [employer] Director Provider Instructions: Weight bear as tolerated right lower extremity Use walker to assist with ambulation Allowed for full range of motion right lower extremity Lovenox 40 mg daily for DVT prophylaxis x 6 weeks or as instructed by Dr. Cruz. Ice to right hip as needed for pain/swelling Pablito stockings on bilateral lower extremity - on during the day. off at night. Follow up with Dr. Cruz/Mimi Cline PA-C as scheduled. Pending Studies at Discharge: No Stand-Alone Forms: My [facility] Skilled Items Patient informed of condition?: Yes DNR: Yes Discharge Level of Care: Skilled Communicable Disease: No Discharge Prognosis: Stable Lines: None Urinary Catheter: No Medications and DC Order Prescriptions: New sennosides-docusate sodium [Senokot-S] 8.6-50 mg Tablet 2 tab PO HS Qty: 10 RF: 0 amlodipine [Norvasc] 5 mg Tablet 5 mg PO QAM Qty: 5 RF: 0 enoxaparin 40 mg/0.4 mL Syringe 40 mg subcut Q24H Qty: 4 RF: 0 Continued primidone 50 mg tablet 50 mg PO BID Qty: 10 RF: 0 carbidopa-levodopa 50-200 mg tablet extended release 1 tab PO BID Qty: 10 RF: 0 aspirin 81 mg Tablet,Chewable 81 mg PO DAILY Qty: 5 RF: 0 escitalopram oxalate [Lexapro] 20 mg Tablet 20 mg PO DAILY Qty: 5 RF: 0 Discontinued primidone 50 mg tablet 50 mg PO BID RF: 0 omeprazole 20 mg Tablet,Delayed Release (Dr/Ec) 20 mg PO AMHS RF: 0 naproxen sodium [Aleve] 220 mg Tablet 220 mg PO Q12H PRN (Reason: Pain) RF: 0 melatonin 5 mg Tablet 5 mg PO HS RF: 0 acetaminophen 325 mg tablet 650 mg PO Q6H PRN (Reason: fever or pain) Qty: 30 RF: 0 clonazepam 0.5 mg tablet 0.5 mg PO BID RF: 0 magnesium hydroxide [Milk of Magnesia] 400 mg/5 mL Suspension 30 ml PO DAILY PRN (Reason: Constipation) RF: 0 bisacodyl [Dulcolax (bisacodyl)] 10 mg Suppository 10 mg MN DAILY PRN (Reason: Constipation) RF: 0 lisinopril 10 mg Tablet 10 mg PO DAILY RF: 0 docusate sodium [Colace] 100 mg Capsule 100 mg PO BID PRN (Reason: Constipation) RF: 0 ergocalciferol (vitamin D2) [Vitamin D2] 1,250 mcg (50,000 unit) Capsule 1,250 mcg PO DAILY RF: 0 ondansetron 4 mg Tablet,Disintegrating 4 mg PO Q6H PRN (Reason: Nausea) RF: 0 vitamin [id number] acid 0.5-1 mg Tablet 1 tab PO DAILY RF: 0 sennosides-docusate sodium 8.6-50 mg Tablet 1 tab-cap PO HS RF: 0 No Action acetaminophen [Tylenol] 325 mg Tablet 650 mg PO Q6H PRN (Reason: FEVER/PAIN) RF: 0 ondansetron HCl [Zofran] 4 mg Tablet 4 mg PO Q6H PRN (Reason: NAUSEA/VOMITING) RF: 0 lisinopril 30 mg Tablet 30 mg PO DAILY RF: 0 clonazepam 0.25 mg Tablet,Disintegrating 0.25 mg PO BID RF: 0 vitamin [id number] acid 500-400 mcg Tablet 1 tab PO DAILY RF: 0 ergocalciferol (vitamin D2) [Vitamin D2] 1,250 mcg (50,000 unit) capsule 1,250 mcg PO WK RF: 0 Discharge Orders: Discharge Order (Routine); Ordered 08/28/21 Ordered By: Coco Veronica/Other Patient Handouts: DVT Post Op Prevention Admission Data Admit Date/Time: 08/20/21 13:08 Attending Provider: Sanju Madrigal Admit Provider: Elliott Ruff Primary Care Provider: Jamil STANFORD Providers: Jonny Gallegos Liberal ; [place] ; Elliott Ruff ; Jacques Kelly ; Vaughn Cruz ; Heather Jiménez Other Interventions: Discharge Summary Assessment (RN) Last Done: 08/28/21 14:27
[2021-08-28] MEDS ORDERED: clonazePAM 0.25 MG TAB PO PRN (20:00)
== END 2021-08-28 14:10 | DRG 480 ==
LOC: ED 08:56 → SUATTDRO 13:08 → 3N 13:08
DX: G20 Parkinson's disease; Z88.5 Allergy status to narcotic agent; E11.9 Type 2 diabetes mellitus without complications; G93.41 Metabolic encephalopathy; Z79.82 Long term (current) use of aspirin; D62 Acute posthemorrhagic anemia; K21.9 Gastro-esophageal reflux disease without esophagitis; E78.5 Hyperlipidemia, unspecified; E87.0 Hyperosmolality and hypernatremia; F41.8 Other specified anxiety disorders; Z88.8 Allergy status to other drugs, medicaments and biological substances; E83.42 Hypomagnesemia; Y92.89 Other specified places as the place of occurrence of the external cause; Z66 Do not resuscitate; W19.XXXA Unspecified fall, initial encounter; E87.6 Hypokalemia; I10 Essential (primary) hypertension; S72.141A Displaced intertrochanteric fracture of right femur, initial encounter for closed fracture